=== PATIENT | male | born 1970 | race Caucasian/White ===

== ENCOUNTER 2021-09-17 07:15 | Outpatient (REF) | payer OTHER, SELFPAY ==
[2021-09-17 08:17] LABS: Estimated Average Glucose 117 mg/dL; Hemoglobin A1C 151.0293 umol/L; Hemoglobin A1c % 5.7 %
[2021-09-17 08:26] LABS: Alanine Aminotransferase 25 U/L (0-40); Anion Gap 11 (12-20); Aspartate Amino Transferase 25 U/L (5-37); Blood Urea Nitrogen 17 mg/dL (9-16); Calcium 10.1 mg/dL (8.4-10.2); Carbon Dioxide 29 mmol/L (22-29); Chloride 103 mmol/L (96-108); Cholesterol 125 mg/dL; Estimated Glomerular Filt Rate > 60; Glucose Fasting 120 mg/dL (60-99); HDL Cholesterol 45 mg/dL; LDL Cholesterol Calculated 70 mg/dl; Potassium 4.8 mmol/L (3.3-5.1); Sodium 138 mmol/L (135-145); Triglycerides 51 mg/dL
[2021-09-17 08:47] LABS: Free T4 (Free Thyroxine) 0.98 ng/dL (0.71-1.85); Thyroid Stimulating Hormone 8.84 uIU/mL (0.32-4.0)
== END 2021-09-17 07:16 | disposition home or self-care (01) ==
LOC: HO.LAB 07:15
PROVIDERS: PCP Internal Medicine; Visit Provider Internal Medicine
DX: Z00.01 Encounter for general adult medical examination with abnormal findings (principal); E03.9 Hypothyroidism, unspecified; E78.5 Hyperlipidemia, unspecified; I10 Essential (primary) hypertension; R73.01 Impaired fasting glucose
CPT/HCPCS: 36415; 80048; 80061; 83036; 84439; 84443; 84450; 84460

== ENCOUNTER → 2021-12-01 10:23 | Outpatient (BNVA) | payer OTHER, SELFPAY | PROVIDERS: PCP Internal Medicine; Visit Provider Physician Assistant Medical | DX: S30.0XXA Contusion of lower back and pelvis, initial encounter (principal); W00.0XXA Fall on same level due to ice and snow, initial encounter | CPT/HCPCS: 72100; 99203 ==

== ENCOUNTER 2022-01-09 06:30 | Outpatient (REF) | payer OTHER, SELFPAY ==
[2022-01-09 07:55] LABS: Alanine Aminotransferase 28 U/L (0-40); Anion Gap 13 (12-20); Aspartate Amino Transferase 22 U/L (5-37); Blood Urea Nitrogen 17 mg/dL (9-16); Calcium 9.6 mg/dL (8.4-10.2); Carbon Dioxide 28 mmol/L (22-29); Chloride 105 mmol/L (96-108); Cholesterol 134 mg/dL; Estimated Glomerular Filt Rate > 60; Glucose Fasting 106 mg/dL (60-99); HDL Cholesterol 50 mg/dL; LDL Cholesterol Calculated 73 mg/dl; Potassium 4.6 mmol/L (3.3-5.1); Sodium 141 mmol/L (135-145); Triglycerides 56 mg/dL
[2022-01-09 08:16] LABS: Free T4 (Free Thyroxine) 0.94 ng/dL (0.71-1.85); Thyroid Stimulating Hormone 10.58 uIU/mL (0.32-4.0)
== END 2022-01-09 06:31 | disposition home or self-care (01) ==
LOC: HO.LAB 06:30
PROVIDERS: PCP Internal Medicine; Visit Provider Internal Medicine
DX: E03.9 Hypothyroidism, unspecified (principal); E78.5 Hyperlipidemia, unspecified; R73.01 Impaired fasting glucose
CPT/HCPCS: 36415; 80048; 80061; 84439; 84443; 84450; 84460

== ENCOUNTER 2023-03-10 07:24 | Outpatient (REF) | payer OTHER, SELFPAY ==
[2023-03-10 08:10] LABS: Estimated Average Glucose 117 mg/dL; Hemoglobin A1c % 5.7 %
[2023-03-10 08:36] LABS: Alanine Aminotransferase 22 U/L (0-40); Albumin Level 4.4 g/dL (3.5-5.0); Alkaline Phosphatase 100 U/L (39-117); Anion Gap 12 (12-20); Aspartate Amino Transferase 24 U/L (5-37); Blood Urea Nitrogen 18 mg/dL (9-16); Calcium 9.4 mg/dL (8.4-10.2); Carbon Dioxide 25 mmol/L (22-29); Chloride 107 mmol/L (96-108); Cholesterol 126 mg/dL; Estimated Glomerular Filt Rate > 60; Glucose Fasting 108 mg/dL (60-99); HDL Cholesterol 42 mg/dL; LDL Cholesterol Calculated 69 mg/dl; Potassium 4.8 mmol/L (3.3-5.1); Sodium 139 mmol/L (135-145); Total Protein 6.9 g/dL (6.5-8.0); Triglycerides 79 mg/dL
[2023-03-10 08:50] LABS: Free T4 (Free Thyroxine) 1.36 ng/dL (0.71-1.85); PSA,Total (Free>4and<10) 1.15 ng/mL (0.00-4.00); Thyroid Stimulating Hormone 4.36 uIU/mL (0.32-4.0)
== END 2023-03-10 07:25 | disposition home or self-care (01) ==
LOC: HO.LAB 07:24
PROVIDERS: PCP Internal Medicine; Visit Provider Internal Medicine
DX: Z12.5 Encounter for screening for malignant neoplasm of prostate (principal); E03.9 Hypothyroidism, unspecified; F51.01 Primary insomnia; R73.01 Impaired fasting glucose; R35.1 Nocturia; E78.5 Hyperlipidemia, unspecified
CPT/HCPCS: 36415; 80053; 80061; 83036; 84153; 84439; 84443

== ENCOUNTER 2023-05-24 14:54 | Outpatient (AMB) | payer OTHER, SELFPAY ==
--- NOTE | 2023-05-24 15:08 | MHC.PC.OV ---
Vital Signs 05/24/23 15:13 Height 5 ft 10 in Weight 250 lb BMI 35.9 BP 90/62 Blood Pressure Location Rt brachial Position Sitting Pulse 96 Pulse Source Pulse Oximeter Pulse Oximetry (%) 98 Oxygen Delivery Method Room Air Intake Visit Reasons: 3 month follow up high bp Intake Note: Pt is here today for her 3 mo. f/u elevated b/p Allergies No Known Allergies Allergy (Verified 01/20/24 23:33) Medication List - Last Reconciled 01/20/24 by Yokasta Rooney MD aspirin 81 mg PO DAILY atorvastatin 80 mg PO DAILY levothyroxine 175 mcg PO DAILY lisinopril 5 mg PO DAILY oxybutynin chloride ER 10 mg PO DAILY 30 days zolpidem 5 mg PO BEDTIME PRN Tobacco use date assessed: 05/24/23 Dental Screening Dental Screen Date: 05/24/23 Did you have a dental visit in the last 12 months?: No Was dental information given to patient?: Patient has dentist HPI 3 month follow up high bp HPI Details 53-year-old male with hypertension, hypothyroidism, prediabetes and hyperlipidemia, here today for his follow-up. Currently taking lisinopril 5 mg 1 daily has been tolerating medication well with no adverse effects reported. He works as a road oiling truck driver, has tried incorporating some form of exercise in his day-to-day routine, and has been trying to avoid eating a lot of processed and fast foods . Blood pressure today is within normal limits, denies any lightheadedness, headache, chest pain or shortness of breath. Recent fasting labs showed elevated fasting glucose but hemoglobin A1c at 5.7%, fasting lipids, total PSA are within normal limits, TSH slightly elevated but free T4 within normal limits as well PFSH Medical History Chronic left shoulder pain Essential hypertension Fall (on)(from) sidewalk curb, initial encounter Impaired fasting glucose Nocturia Primary insomnia Muscle spasticity History of tongue cancer Dyslipidemia Acquired hypothyroidism Rhinitis, allergic Surgical History Hx of colonoscopy History of surgery History of umbilical hernia Family History Father Unknown family medical history Mother COPD (chronic obstructive pulmonary disease) Son Juvenile onset diabetes mellitus with hyperosmolar coma Social History Housing: House Alcohol intake: current Alcohol intake frequency: a few times a month Patient Tobacco Use Status: Former Tobacco user Years Smoked: 2 yrs e-Cigarette/Vaping Use: Never Used service: No Current occupational status: employed Cognitive needs: No Hearing needs: No Vision needs: Yes Questionnaire Thrive Questionnaire Date Thrive assessed: 02/22/23 AUDIT C Alcohol Use Questionnaire (AUDIT-C) 1. How often do you have a drink containing alcohol?: Monthly or less 2. How many drinks containing alcohol do you have on a typical day when you are drinking?: 1 or 2 3. How often do you have six or more drinks on one occasion?: Never Total Score: 1 REID-7 AMB Questionnaire REID-7 Date REID - 7 assessed: 02/22/23 Source: Developed by Drs. Salazar Martinez, Audrey Dorado, Trace Collins and colleagues, with an educational deisi from [employer]. Review of Systems Const Denies fatigue, Denies headache(s) and Denies malaise Eyes Reports blurry vision (sees Dr Louis for his eye exam) ENT Denies dizziness and Denies headache(s) Card Denies chest pain, Denies rapid heart rate, Denies irregular heart rhythm and Denies dyspnea Resp Denies chest congestion, Denies cough and Denies dyspnea GI Denies abdominal pain, Denies bloating, Denies hematochezia, Denies change in bowel habits, Denies heartburn and Denies nausea Denies difficulty urinating, Denies genital lesions, Denies dysuria, Reports nocturia, Denies penile discharge, Denies urinary incontinence and Denies urinary urgency Skin/Breast Denies lesions and Denies rash Neuro Denies dizziness and Denies headache(s) Psych Reports no additional complaints Endo Denies fatigue, Denies polyphagia and Denies polydipsia Grabiel/Lymph Reports no additional complaints Aller/Immun Reports seasonal rhinorrhea Physical exam (Primary Care) Vital Signs: Last Vital Signs Pulse 96 05/24/23 15:13 BP 90/62 05/24/23 15:13 Pulse Ox 98 05/24/23 15:13 Oxygen Delivery Method Room Air 05/24/23 15:13 BMI result Body Mass Index 35.9 BMI Assessment/Plan discussion: High BMI High, discussed plan: lifestyle, weight reduction, dietary, physical activity and alcohol moderation Tobacco/Smoking Status: Tobacco use Status Tobacco use date assessed 05/24/23 05/24/23 15:14 Patient Tobacco Use Status Former Tobacco user 05/24/23 15:09 e-Cigarette/Vaping Use Never Used 05/24/23 15:09 Thrive Assessment: Date of Thrive Assessment Date Thrive assessed 02/22/23 05/24/23 15:09 Const General: cooperative and no acute distress Nutritional Appearance: obese Orientation/consciousness: patient oriented x3 HENFL General nose exam: Normal external nose present and No nasal discharge present Face and sinus: Yes face symmetric Mouth: Normal oral and palatal mucosa present and moist mucous membranes Eyes General: appearance normal, both eyes and all related structures Neck Other: Supple, no lymphadenopathy, thyroid gland nonpalpable Resp Auscultation: clear to auscultation bilaterally Cardio Other: S1-S2 present regular rate and rhythm GI Palpation (GI): Soft to palpation, nontender, no guarding and no masses Auscultation: normal bowel sounds Neuro General: patient oriented x3, gait normal, moves all extremities, Normal light touch and pain sensation, CN's II-XI intact bilaterally and normal sensation to monofilament Extrem General: Yes full ROM, Yes no joint enlargement, Yes no pedal edema, Yes no calf tenderness and Yes normal gait Results Reviewed Results Reviewed: SPEC : [id number] ROSA: 03/10/23 STATUS: COMP REQ : [id number] RECD: 03/10/[address]: Yokasta Rooney MD COMP: 03/10/2350 ENTERED: 03/10/[address] [facility] [address]: ORDERED: CMP Fast, Lipid Panel, PSA W/ REFLEX, Free T4, TSH Test Result Flag Reference Sodium 139 135-145 mmol/L Potassium 4.8 3.3-5.1 mmol/L Slight Hemolysis CL 107 96-108 mmol/L CO2 25 22-29 mmol/L Gap 12 12-20 BUN 18 H 9-16 mg/dL Creat 1.06 0.5-1.4 mg/dL EGFR > 60 NOTE: For -[place]incent[place] individuals, multiply the result by 1.210. Chronic Kidney Disease: Estimated GFR < 60 mL/min/1.73m2 Severe Kidney Disease: Estimated GFR < 15 mL/min/1.73m2 FBS 108 H 60-99 mg/dL A fasting glucose from 100-125 mg/dl is considered impaired (pre-diabetes). CA 9.4 8.4-10.2 mg/dL Total Bili 1.0 0.0-1.0 mg/dL AST (GOT) 24 5-37 U/L Slight Hemolysis ALT (GPT) 22 0-40 U/L Protein, Total 6.9 6.5-8.0 g/dL Alb 4.4 3.5-5.0 g/dL Triglyceride 79 mg/dL Desirable Triglyceride: less than 150 mg/dL Borderline High Triglyceride 150-199 mg/dL High Triglyceride: 200-499 mg/dL Very High Triglyceride: greater than or equal to 5OO mg/dL Chol 126 mg/dL Desirable Cholesterol: less than 200 mg/dL Borderline High Cholesterol: 200-239 mg/dL High Cholesterol: greater than 239 mg/dL LDL Calculated 69 mg/dl Desirable LDL: less than 100 mg/dL Near Optimal/Above Optimal LDL: 110-129 mg/dL Borderline High LDL: 130-159 mg/dL High LDL: 160-189 mg/dL Very High LDL: greater than or equal to 190 mg/dL HDL 42 mg/dL Desirable HDL: greater than 40 mg/dL Note: This HDL assay may give artificially low results in patients with liver disease. Alk Phos 100 39-117 U/L PSA W/ REFLEX 1.15 0.00-4.00 ng/mL A Free PSA was not performed: The percentage of Free PSA can be used to enhance the differentiation of prostate cancer from benign prostatic disease in subjects whose PSA levels are between 4.0 and 10.0 ng/mL. For subjects whose PSA levels are below 4.0 or above 10.0 ng/mL, the risk of prostate cancer is determined on the basis of the PSA alone. Therefore the % Free PSA is recommended only for those subjects whose PSA levels are between 4.0 and 10.0 ng/mL. PSA methodology: [employer] i Chemiluminescent Microparticle Immunoassay (CMIA) Free T4 1.36 0.71-1.85 ng/dL TSH 3rd Gen. 4.36 H 0.32-4.0 uIU/mL Note: A sustained TSH level above 2.5 uIU/mL may warrant further investigation. TSH 3rd Generation ([employer]) Laboratory Tests 03/10/23 07:41 Estimat Average Glucose 117 Hemoglobin A1c % 5.7 Assessment and Plan Assessment & Plan (1) Essential hypertension: Code(s): I10 - Essential (primary) hypertension Plan: Blood pressure at goal of less than 130/80. Continue lisinopril 5 mg daily. Reinforced importance of following a low sodium diet, getting regular exercise, and lowering stress levels. (2) Impaired fasting glucose: Code(s): R73.01 - Impaired fasting glucose Plan: Your fasting blood sugar was elevated above 100 mg/dL but hemoglobin A1c is within normal limits. Impaired glucose metabolism makes at risk for developing diabetes mellitus type 2, as well as heart attack and stroke later on. Lifestyle changes at just weight loss, healthy eating habits, and regular exercise are important, and can prevent the progression to diabetes (3) Dyslipidemia: Code(s): E78.5 - Hyperlipidemia, unspecified Plan: Reviewed recent fasting lipid profile with patient with levels within normal limits . Continue with atorvastatin 80 mg daily , in addition to adherence to low-cholesterol diet and regular exercise, at least 30 minutes 3 to 4 times a week. Advised patient to make healthy food choices, eat more fruits, vegetables, whole grains, wild caught fish and low-fat dairy. Limit amount of meat and fried or fatty food products, as well as processed foods and fast foods. Follow-up scheduled with repeat fasting lipid panel in 4 months. (4) Acquired hypothyroidism: Code(s): E03.9 - Hypothyroidism, unspecified Plan: TSH is slightly elevated but free T4 within normal . Patient states he is feeling well on current dose of levothyroxine at 175 mcg daily, will continue with current dose Orders: Orders Alanine Aminotransferase 08/27/23 I10 - Essential (primary) hypertension, R73.01 - Impaired fasting glucose, E78.5 - Hyperlipidemia, unspecified, E03.9 - Hypothyroidism, unspecified Aspartate Amino Transferase 08/27/23 I10 - Essential (primary) hypertension, R73.01 - Impaired fasting glucose, E78.5 - Hyperlipidemia, unspecified, E03.9 - Hypothyroidism, unspecified Lipid Panel 08/27/23 I10 - Essential (primary) hypertension, R73.01 - Impaired fasting glucose, E78.5 - Hyperlipidemia, unspecified, E03.9 - Hypothyroidism, unspecified Thyroid Stimulating Hormone 08/27/23 I10 - Essential (primary) hypertension, R73.01 - Impaired fasting glucose, E78.5 - Hyperlipidemia, unspecified, E03.9 - Hypothyroidism, unspecified Free T4 (Free Thyroxine) 08/27/23 E03.9 - Hypothyroidism, unspecified, I10 - Essential (primary) hypertension, R73.01 - Impaired fasting glucose, E78.5 - Hyperlipidemia, unspecified Basic Metabolic Panel Fasting 08/27/23 I10 - Essential (primary) hypertension, R73.01 - Impaired fasting glucose, E78.5 - Hyperlipidemia, unspecified, E03.9 - Hypothyroidism, unspecified Coding Level of Care Code Est Pt Level 3 (75461) Diagnoses Essential hypertension I10 Impaired fasting glucose R73.01 Dyslipidemia E78.5 Acquired hypothyroidism E03.9
[2023-05-24 15:13] VITALS: BP 90/62; PULSE 96; O2SAT 98; BMI 35.9
== END 2023-05-24 15:42 | disposition home or self-care (01) ==
PROVIDERS: Visit Provider Internal Medicine
DX: I10 Essential (primary) hypertension (principal); R73.01 Impaired fasting glucose; E78.5 Hyperlipidemia, unspecified; E03.9 Hypothyroidism, unspecified
CPT/HCPCS: 99499

== ENCOUNTER 2023-09-08 07:20 | Outpatient (REF) | payer OTHER, SELFPAY ==
[2023-09-08 09:55] LABS: Alanine Aminotransferase 24 U/L (0-40); Anion Gap 13 (12-20); Aspartate Amino Transferase 23 U/L (5-37); Blood Urea Nitrogen 13 mg/dL (9-16); Calcium 9.8 mg/dL (8.4-10.2); Carbon Dioxide 28 mmol/L (22-29); Chloride 104 mmol/L (96-108); Cholesterol 123 mg/dL (<200); Estimated Glomerular Filt Rate > 60; Glucose Fasting 106 mg/dL (60-99); HDL Cholesterol 44 mg/dL (>40); LDL Cholesterol Calculated 65 mg/dL (<100); Potassium 4.2 mmol/L (3.3-5.1); Sodium 141 mmol/L (135-145); Triglycerides 71 mg/dL (<150)
== END 2023-09-08 07:21 | disposition home or self-care (01) ==
LOC: HO.LAB 07:20
PROVIDERS: PCP Internal Medicine; Visit Provider Internal Medicine
DX: I10 Essential (primary) hypertension (principal); E03.9 Hypothyroidism, unspecified; R73.01 Impaired fasting glucose; E78.5 Hyperlipidemia, unspecified
CPT/HCPCS: 36415; 80048; 80061; 84439; 84443; 84450; 84460

== ENCOUNTER 2023-09-13 14:15 | Outpatient (AMB) | payer OTHER, SELFPAY ==
[2023-09-13 14:42] VITALS: BP 98/64; PULSE 93; O2SAT 97; BMI 35.2
--- NOTE | 2023-09-13 14:42 | MHC.PC.OV ---
Vital Signs 09/13/23 14:42 Height 5 ft 10 in Weight 245 lb 2 oz BMI 35.2 BP 98/64 Blood Pressure Location Rt brachial Position Sitting Pulse 93 Pulse Source Pulse Oximeter Pulse Oximetry (%) 97 Oxygen Delivery Method Room Air Intake Visit Reasons: 4 Month F/Up Intake Note: pt is here for a 4 month follow for lab results pt would like to discuss his left shoulder/neck pain that he still having and that is getting worse Allergies No Known Allergies Allergy (Verified 09/17/23 01:00) Medication List - Last Reconciled 09/17/23 by Yokasta Rooney MD aspirin 81 mg PO DAILY atorvastatin 80 mg PO DAILY levothyroxine 175 mcg PO DAILY lisinopril 5 mg PO DAILY zolpidem 5 mg PO BEDTIME PRN Tobacco use date assessed: 09/13/23 Dental Screening Dental Screen Date: 09/13/23 Did you have a dental visit in the last 12 months?: No Did you have a dental problem in the last 6 months where you did not have access to dental care?: No Was dental information given to patient?: No HPI 4 Month F/Up HPI Details 53-year-old male with hypertension, prediabetes, primary insomnia, dyslipidemia and acquired hypothyroidism, here today for his follow-up. He has been compliant with taking his medications, and tries to follow recommended diet. Had recent fasting labs done which showed results within normal limits, except for fasting glucose at 106 mg/dL. Still having you pain and stiffness in his left posterior neck going down left shoulder, with difficult with doing overhead movements with left arm. [facility] Medical History (Updated 09/13/23 @ 15:21 by Yokasta Rooney MD) Chronic left shoulder pain Essential hypertension Fall (on)(from) sidewalk curb, initial encounter Impaired fasting glucose Nocturia Primary insomnia Muscle spasticity History of tongue cancer Dyslipidemia Acquired hypothyroidism Rhinitis, allergic Surgical History Hx of colonoscopy History of surgery History of umbilical hernia Family History Father Unknown family medical history Mother COPD (chronic obstructive pulmonary disease) Son Juvenile onset diabetes mellitus with hyperosmolar coma Social History Housing: House Alcohol intake: current Alcohol intake frequency: a few times a month Patient Tobacco Use Status: Former Tobacco user Years Smoked: 2 yrs e-Cigarette/Vaping Use: Never Used service: No Current occupational status: employed Cognitive needs: No Hearing needs: No Vision needs: Yes Questionnaire PHQ-9 Over the last 2 weeks, how often have you been bothered by any of the following problems? Depression Screening Interpretation: Negative Depression Screening Done: Yes Source: Developed by Drs. Salazar Martinez, Trace Calvo and colleagues, with an educational deisi from [employer]. Thrive Questionnaire Date Thrive assessed: 02/22/23 REID-7 AMB Questionnaire REID-7 Date REID - 7 assessed: 02/22/23 Source: Developed by Drs. Salazar Martinez, Audrey Dorado, Trace Collins and colleagues, with an educational deisi from [employer]. Review of Systems Const Denies fatigue, Denies fever(s), Denies headache(s) and Denies malaise Eyes Reports blurry vision (sees Dr Louis for his eye exam) ENT Denies dizziness, Denies ear discharge, Denies headache(s), Denies mouth lesions, Denies mouth pain, Reports nasal congestion and Denies sinus pressure Card Denies chest pain, Denies rapid heart rate, Denies irregular heart rhythm and Denies dyspnea Resp Denies chest congestion, Denies cough and Denies dyspnea GI Denies abdominal pain, Denies bloating, Denies hematochezia, Denies change in bowel habits, Denies heartburn and Denies nausea Denies difficulty urinating, Denies genital lesions, Denies dysuria, Reports nocturia, Denies penile discharge, Denies urinary incontinence and Denies urinary urgency Musc Reports stiffness (left side of neck ) Skin/Breast Denies lesions and Denies rash Neuro Denies dizziness and Denies headache(s) Psych Reports no additional complaints Endo Denies fatigue, Denies polyphagia and Denies polydipsia Grabiel/Lymph Reports no additional complaints Aller/Immun Reports seasonal rhinorrhea Physical exam (Primary Care) Vital Signs: Last Vital Signs Pulse 93 09/13/23 14:42 BP 98/64 09/13/23 14:42 Pulse Ox 97 09/13/23 14:42 Oxygen Delivery Method Room Air 10/19/23 14:42 BMI result Body Mass Index 35.2 BMI Assessment/Plan discussion: High BMI High, discussed plan: lifestyle, weight reduction, dietary, physical activity and alcohol moderation Tobacco/Smoking Status: Tobacco use Status Tobacco use date assessed 09/13/23 09/13/23 14:46 Patient Tobacco Use Status Former Tobacco user 09/13/23 14:46 e-Cigarette/Vaping Use Never Used 09/13/23 14:46 Depression Screening Interpretation: Negative Thrive Assessment: Date of Thrive Assessment Date Thrive assessed 02/22/23 09/13/23 14:46 Const General: cooperative and no acute distress Nutritional Appearance: obese Orientation/consciousness: patient oriented x3 Limitations: no limitations HENMT Ears: hearing grossly normal bilaterally, TM's normal bilaterally and EAC's normal General nose exam: Normal external nose present and No nasal discharge present Face and sinus: Yes face symmetric Mouth: Normal oral and palatal mucosa present and moist mucous membranes Eyes General: appearance normal, both eyes and all related structures Neck Other: Supple, no lymphadenopathy, thyroid gland nonpalpable Resp Auscultation: clear to auscultation bilaterally Cardio Other: S1-S2 present regular rate and rhythm GI Palpation (GI): Soft to palpation, nontender, no guarding and no masses Auscultation: normal bowel sounds General: Yes no CVA tenderness Male General Exam: Yes normal external exam Back/Spine/Pelvis Other: Slight tenderness on palpation over live left trapezius going to posterior aspect of left shoulder joint, full range of motion of left shoulder noted Back: no CVA tenderness Skin General skin exam: no rashes or lesions noted Neuro General: patient oriented x3, gait normal, moves all extremities, Normal light touch and pain sensation, CN's II-XI intact bilaterally and normal sensation to monofilament Extrem General: Yes full ROM, Yes no joint enlargement, Yes no pedal edema, Yes no calf tenderness and Yes normal gait Psych Appearance: grossly normal Mental Status: mental status grossly normal Speech and movement: Normal speech and movement present Affect: normal affect Attitude: cooperative Results Reviewed Results Reviewed: ENTERED: 09/08/23-4393 RADHA WILD: ORDERED: Met Prof Fast, AST, ALT, Lipid Panel, Free T4, TSH Test Result Flag Reference Site Sodium 141 135-145 mmol/L Potassium 4.2 3.3-5.1 mmol/L CL 104 96-108 mmol/L CO2 28 22-29 mmol/L Gap 13 12-20 BUN 13 9-16 mg/dL Creat 0.97 0.5-1.4 mg/dL EGFR > 60 NOTE: For -[place] individuals, multiply the result by 1.210. Chronic Kidney Disease: Estimated GFR < 60 mL/min/1.73m2 Severe Kidney Disease: Estimated GFR < 15 mL/min/1.73m2 FBS 106 H 60-99 mg/dL A fasting glucose from 100-125 mg/dl is considered impaired (pre-diabetes). CA 9.8 8.4-10.2 mg/dL AST (GOT) 23 5-37 U/L ALT (GPT) 24 0-40 U/L Triglyceride 71 <150 mg/dL Desirable Triglyceride: less than 150 mg/dL Borderline High Triglyceride 150-199 mg/dL High Triglyceride: 200-499 mg/dL Very High Triglyceride: greater than or equal to 5OO mg/dL Cholesterol 123 <200 mg/dL Desirable Cholesterol: less than 200 mg/dL Borderline High Cholesterol: 200-239 mg/dL High Cholesterol: greater than 239 mg/dL LDL Calculated 65 <100 mg/dL Desirable LDL: less than 100 mg/dL Near Optimal/Above Optimal LDL: 110-129 mg/dL Borderline High LDL: 130-159 mg/dL High LDL: 160-189 mg/dL Very High LDL: greater than or equal to 190 mg/dL HDL 44 >40 mg/dL Desirable HDL: greater than 40 mg/dL Note: This HDL assay may give artificially low results in patients with liver disease. Free T4 1.20 0.71-1.85 ng/dL TSH 3rd Gen. 2.20 0.32-4.0 uIU/mL TSH 3rd Generation ([facility]) Assessment and Plan Assessment & Plan (1) Chronic left shoulder pain: Code(s): M25.512 - Pain in left shoulder; G89.29 - Other chronic pain Plan: X-ray of left shoulder joint obtained, and referred for physical therapy. Return to the clinic if no improvement of symptoms noted after PT (2) Nocturia: Comment: ff'd at [facility] Code(s): R35.1 - Nocturia Plan: Needs a referral to see another urologist, as previous 1 retired. Total PSA level ordered (3) Impaired fasting glucose: Code(s): R73.01 - Impaired fasting glucose Plan: Your fasting blood sugars was elevated above 100 mg/dL. Impaired glucose metabolism O2 at risk for developing diabetes mellitus type 2, as well as heart attack and stroke later on. Lifestyle changes at just weight loss, healthy eating habits, and regular exercise are important, and can prevent the progression to diabetes (4) Essential hypertension: Code(s): I10 - Essential (primary) hypertension Plan: Blood pressure at goal of less than 130/80. Continue with current medication. Reinforced importance of following a low sodium diet, getting regular exercise, and lowering stress levels. (5) Dyslipidemia: Code(s): E78.5 - Hyperlipidemia, unspecified Plan: Reviewed recent fasting lipid profile with patient with levels within normal limit . Continue with atorvastatin 80 mg daily , in addition to adherence to low-cholesterol diet and regular exercise, at least 30 minutes 3 to 4 times a week. Advised patient to make healthy food choices, eat more fruits, vegetables, whole grains, wild caught fish and low-fat dairy. Limit amount of meat and fried or fatty food products, as well as processed foods and fast foods. Follow-up scheduled with repeat fasting lipid panel in 6 months. (6) Acquired hypothyroidism: Code(s): E03.9 - Hypothyroidism, unspecified Plan: Thyroid levels are within normal limits, continued on current dose of levothyroxine at 175 mcg daily in a.m. (7) Primary insomnia: Code(s): F51.01 - Primary insomnia Plan: Continued on zolpidem 5 mg 1 tablet at bedtime as needed for difficulty sleeping Orders: Orders Basic Metabolic Panel Fasting 02/25/24 E03.9 - Hypothyroidism, unspecified, E78.5 - Hyperlipidemia, unspecified, I10 - Essential (primary) hypertension, R35.1 - Nocturia, R73.01 - Impaired fasting glucose XR shoulder LT min 2V 09/13/23 G89.29 - Other chronic pain, M25.512 - Pain in left shoulder PT Evaluation and Treatment 09/13/23 G89.29 - Other chronic pain, M25.512 - Pain in left shoulder Lipid Panel 02/25/24 E03.9 - Hypothyroidism, unspecified, E78.5 - Hyperlipidemia, unspecified, I10 - Essential (primary) hypertension, R35.1 - Nocturia, R73.01 - Impaired fasting glucose Alanine Aminotransferase 02/25/24 E03.9 - Hypothyroidism, unspecified, E78.5 - Hyperlipidemia, unspecified, I10 - Essential (primary) hypertension, R35.1 - Nocturia, R73.01 - Impaired fasting glucose Aspartate Amino Transferase 02/25/24 E03.9 - Hypothyroidism, unspecified, E78.5 - Hyperlipidemia, unspecified, I10 - Essential (primary) hypertension, R35.1 - Nocturia, R73.01 - Impaired fasting glucose PSA,Total (Free>4and<10) 02/25/24 E03.9 - Hypothyroidism, unspecified, E78.5 - Hyperlipidemia, unspecified, I10 - Essential (primary) hypertension, R35.1 - Nocturia, R73.01 - Impaired fasting glucose Vitamin D 25-OH Total 02/25/24 E03.9 - Hypothyroidism, unspecified, E78.5 - Hyperlipidemia, unspecified, I10 - Essential (primary) hypertension, R35.1 - Nocturia, R73.01 - Impaired fasting glucose Thyroid Stimulating Hormone 02/25/24 E03.9 - Hypothyroidism, unspecified, E78.5 - Hyperlipidemia, unspecified, I10 - Essential (primary) hypertension, R35.1 - Nocturia, R73.01 - Impaired fasting glucose Free T4 (Free Thyroxine) 02/25/24 E03.9 - Hypothyroidism, unspecified, E78.5 - Hyperlipidemia, unspecified, I10 - Essential (primary) hypertension, R35.1 - Nocturia, R73.01 - Impaired fasting glucose Hemoglobin A1c 02/25/24 E03.9 - Hypothyroidism, unspecified, E78.5 - Hyperlipidemia, unspecified, I10 - Essential (primary) hypertension, R35.1 - Nocturia, R73.01 - Impaired fasting glucose Referrals Urology Referral R35.1 - Nocturia Coding Level of Care Code Est Pt Level 4 (04983) Diagnoses Chronic left shoulder pain M25.512; G89.29 Nocturia R35.1 Impaired fasting glucose R73.01 Essential hypertension I10 Dyslipidemia E78.5 Acquired hypothyroidism E03.9 Primary insomnia F51.01
== END 2023-09-13 15:45 | disposition home or self-care (01) ==
PROVIDERS: PCP Internal Medicine; Visit Provider Internal Medicine
DX: M25.512 Pain in left shoulder (principal); G89.29 Other chronic pain; R35.1 Nocturia; R73.01 Impaired fasting glucose; I10 Essential (primary) hypertension; E78.5 Hyperlipidemia, unspecified; E03.9 Hypothyroidism, unspecified; F51.01 Primary insomnia
CPT/HCPCS: 99214

== ENCOUNTER 2023-09-13 15:30 | Outpatient (REF) | payer OTHER, SELFPAY ==
--- NOTE | ~2023-09-13 | XR_ITS ---
EXAMINATION: XR SHOULDER, LEFT CLINICAL INFORMATION: Left shoulder pain COMPARISON: None available. TECHNIQUE: AP external rotation, Grashey, scapular Y, and axillary views of the left shoulder. FINDINGS: Acromioclavicular joint space narrowing. Glenohumeral joint is maintained. No fracture or dislocation. Mild bony prominence lateral proximal humerus. Visualized ribs and lung are unremarkable. XR/XR shoulder LT min 2V IMPRESSION: No acute bony pathology. Degenerative change left AC joint.
== END 2023-09-13 15:31 | disposition home or self-care (01) ==
LOC: HO.HMGCX 15:30
PROVIDERS: PCP Internal Medicine; Visit Provider Internal Medicine
DX: M25.512 Pain in left shoulder (principal); G89.29 Other chronic pain
CPT/HCPCS: 73030

== ENCOUNTER 2023-11-01 13:40 | Outpatient (REF) | payer OTHER, SELFPAY ==
[2023-11-01 16:36] LABS: Urine Cytology See Pathology rpt
== END 2023-11-01 13:41 | disposition home or self-care (01) ==
LOC: HO.LNP 13:40
PROVIDERS: PCP Internal Medicine; Visit Provider Nurse Practitioner Family
DX: R35.1 Nocturia (principal)
CPT/HCPCS: 51798; 81003; 88112

== ENCOUNTER 2023-11-01 13:40 | Outpatient (AMB) | payer OTHER, SELFPAY ==
--- NOTE | 2023-11-01 14:14 | MHC.OFFVIS ---
Intake Intake Visit Reasons: Nocturia Intake Note: New Patient presents for initial visit for nocturia Urology Medications: none Blood Thinner: aspirin PVR:12ml's [employer]visor [employer] Required: No Accompanied by: Self / Same As Patient Allergies No Known Allergies Allergy (Verified 11/01/23 14:56) Medication List - Last Reconciled 11/01/23 by NATHANAEL Matson aspirin 81 mg PO DAILY atorvastatin 80 mg PO DAILY levothyroxine 175 mcg PO DAILY lisinopril 5 mg PO DAILY zolpidem 5 mg PO BEDTIME PRN HPI HPI Comments History of Present Illness Details Jose J Mazariegos is a very pleasant 53-year-old male patient of . He has a past medical history of chronic left shoulder pain, hypertension, nocturia, insomnia, muscle spasticity, history of tongue cancer in 2015 status post chemo and radiation treatment, dyslipidemia, hypothyroidism, and allergic rhinitis. He presents to the office today as a new patient for nocturia. In discussion with the patient today he reports previously following up with [facility] Dr. Lyon for ongoing nocturia. He reports symptoms to have been present for over 4 years however does feel nocturia is worsening. He reports episodes of nocturia up to 6 times per night. He otherwise denies urinary urgency, urinary frequency, incontinence, hematuria, dysuria, foul smelling urine, changes to urinary stream, flank pain, fever, and or chills. He discusses having trialed Flomax 0.4 mg daily as well as 0.8 mg daily with no improvement in nocturia. When asked he reports a previous workup for sleep apnea approximately 6-7 years ago which was essentially negative. He discusses given his previous history of tongue cancer he does tend to experience dry throat and mouth in does drink fluids during his episodes of nocturia. Discussed obtaining PSA for further assessment evaluation as well as retroperitoneal ultrasound. Discussed possible near future in office urodynamics and or in office cystoscopy for further assessment evaluation. In office urinalysis results reviewed with the patient today microscopic hematuria noted. Discussed at length potential causes of microscopic hematuria. PVR 12 mLs. He otherwise offers no issues or concerns at this time. [facility] Medical History Chronic left shoulder pain Essential hypertension Fall (on)(from) sidewalk curb, initial encounter Impaired fasting glucose Nocturia Primary insomnia Muscle spasticity History of tongue cancer Dyslipidemia Acquired hypothyroidism Rhinitis, allergic Surgical History Hx of colonoscopy History of surgery History of umbilical hernia Family History Father Unknown family medical history Mother COPD (chronic obstructive pulmonary disease) Son Juvenile onset diabetes mellitus with hyperosmolar coma Social History Housing: House Alcohol intake: current Alcohol intake frequency: a few times a month Patient Tobacco Use Status: Former Tobacco user Years Smoked: 2 yrs e-Cigarette/Vaping Use: Never Used service: No Current occupational status: employed Cognitive needs: No Hearing needs: No Vision needs: Yes Review of Systems Const Reports as per HPI Eyes Reports no additional complaints ENT Reports as per HPI Card Reports as per HPI Resp Reports no additional complaints Reports as per HPI Musc Reports as per HPI Neuro Reports no additional complaints Psych Reports no additional complaints Endo Reports as per HPI Physical Exam Const General: cooperative, healthy appearing, comfortable, no acute distress, well developed, alert and awake Orientation/consciousness: patient oriented x3 HEENT Head: Yes normal to inspection, Yes normocephalic and Yes atraumatic Ears: hearing grossly normal bilaterally Eyes General: appearance normal, both eyes and all related structures Neck Neck: Yes normal visual inspection and Yes trachea midline Chest Chest palpation & inspection: normal inspection of the chest Resp Effort & Inspection: normal respiratory effort and able to speak in complete sentences Cardio Rate: regular rate GI Inspection: Yes normal to inspection General: Yes no CVA tenderness Back/Spine/Pelvis Back: no CVA tenderness Skin General skin exam: no rashes or lesions noted Neuro General: patient oriented x3 Extrem General: Yes normal to inspection Psych Appearance: grossly normal and well kempt Mental Status: mental status grossly normal Speech and movement: Normal speech and movement present and Clear speech present Affect: normal affect Attitude: cooperative Thought process: Normal thought process present Thought content: Normal thought content present Insight: Fair insight present (Psych) Judgement: Fair judgement present (Psych) Office Procedures Post Void Residual Post Residual Void Post Void Residual (PVR): 87072-[id number] Void Residual by ultrasound Results AMB Urinalysis, Automated UA Leukoctes 0 Josiah/uL Last Edit by Guerda Hamm on 11/01/23 14:30 UA Nitrite Negative Last Edit by Guerda Hamm on 11/01/23 14:30 UA Urobilinogen 0.2 mg/dL Last Edit by Guerda Hamm on 11/01/23 14:30 UA Protein 0 mg/dL Last Edit by Guerda Hamm on 11/01/23 14:30 UA pH 6.0 Last Edit by Guerda Hamm on 11/01/23 14:30 UA Blood 10 Kevin/uL Last Edit by Guerda Hamm on 11/01/23 14:30 UA Specific [place] 1.025 Last Edit by Idomoolinda Hamm on 11/01/23 14:30 UA Ketone Negative Last Edit by Guerda Hamm on 11/01/23 14:30 UA Bilirubin 0 mg/dL Last Edit by Guerda Hamm on 11/01/23 14:30 UA Glucose 0 mg/dL Last Edit by Guerda Hamm on 11/01/23 14:30 Results Reviewed Results Reviewed: Laboratory Last Values Urine pH (Auto) 6.0 11/01/23 14:17 Specific [place] (Auto) 1.025 11/01/23 14:17 Urine Protein (Auto) 0 mg/dL 11/01/23 14:17 Glucose (UA)(Auto) 0 mg/dL 11/01/23 14:17 Urine Ketones (Auto) Negative 11/01/23 14:17 Urine Blood (Auto) 10 Kevin/uL 11/01/23 14:17 Urine Nitrite (Auto) Negative 11/01/23 14:17 Urine Bilirubin (Auto) 0 mg/dL 11/01/23 14:17 Urine Urobilinogen (Auto) 0.2 mg/dL 11/01/23 14:17 Leukocyte Esterase (Auto) 0 Josiah/uL 11/01/23 14:17 Assessment & Plan Assessment & Plan (1) Nocturia: Comment: ff'd at [facility] Code(s): R35.1 - Nocturia Plan In office urinalysis results reviewed with the patient today; as noted above; will send for urine cytology. PVR 12 mL. Discussed at length potential causes of nocturia. Start terazosin as discussed and prescribed. Will obtain PSA for further assessment evaluation. Will obtain retroperitoneal ultrasound for further assessment evaluation. Discussed importance of limiting fluids 2-3 hours prior to bed to assist with decreasing episodes of nocturia. Discussed other lifestyle modifications and interventions for dry mouth. Discussed possible near future in office urodynamics and or cystoscopy for further assessment evaluation. Follow-up in 6 weeks with PVR, imaging, and labs to be completed prior; or sooner with any issues, concerns, and or questions. Orders: Orders AMB Urinalysis Automated Today Z13.9 - Encounter for screening, unspecified Prostate Specific Antigen Today N40.0 - Benign prostatic hyperplasia without lower urinary tract symptoms Urine Cytology Today R35.1 - Nocturia AMB Post Void Residual by ultrasound Today R35.1 - Nocturia US retroperitoneal comp Today R35.1 - Nocturia Medications: New terazosin 5 mg PO BEDTIME 30 days 30 caps 1RF N40.1 - Benign prostatic hyperplasia with lower urinary tract symptoms, R35.0 - Frequency of micturition Patient Instructions: The patient had an opportunity to ask questions regarding the treatment plan. All questions were answered. Physical exam, labs, and imaging were discussed and reviewed in detail. As well as risks, benefits, and discussion of treatment choices. No major barriers to understanding were identified. The patient expressed understanding and agreement with the above treatment plan. The patient was made aware they should contact our office by phone for worsening of their current condition, the appearance of new symptoms, or with any questions or concerns. Compliance is encouraged with any medications and follow up testing that is ordered. It is a privilege to be allowed the opportunity to participate in? your urological care.? Again, if you have any questions or concerns If you have any questions or concerns please do not hesitate to contact me. The office is [phone]. This note is constructed using voice recognition software. While every effort has been made to ensure accuracy store stock help errors may have been included. Yours sincerely, NATHANAEL Matson Coding Level of Care Code New Pt Level 4 (71366) Diagnoses Nocturia R35.1 CPT Codes Post Residual Void - PVR CPT Code: 74179-Ckbv Void Residual by ultrasound ([id number])
== END 2023-11-01 14:54 | disposition home or self-care (01) ==
PROVIDERS: PCP Internal Medicine; Visit Provider Nurse Practitioner Family
DX: R35.1 Nocturia (principal)
CPT/HCPCS: 99204

== ENCOUNTER 2023-12-20 12:28 | Outpatient (REF) | payer OTHER, SELFPAY ==
--- NOTE | ~2023-12-20 | US_ITS ---
EXAMINATION: US RETROPERITONEAL COMPLETE (RENAL) CLINICAL INFORMATION: Nocturia. COMPARISON: None available. TECHNIQUE: Real-time imaging of the kidneys and bladder. FINDINGS: RIGHT KIDNEY: 12.7 x 5.2 x 5.0 cm (SAG x AP x TRV). The kidney is normal in size, contour, and echogenicity. Renal cortical thickness is normal. No calculi or focal parenchymal lesions. No hydronephrosis. LEFT KIDNEY: 11.4 x 5.0 x 5.9 cm (SAG x AP x TRV). The kidney is normal in size, contour, and echogenicity. Renal cortical thickness is normal. No renal calculi or hydronephrosis. 2.7 x 2.9 x 2.7 cm. BLADDER: Well distended and normal. Bilateral ureteral jets are demonstrated. Prevoid bladder volume is 166 mL. Postvoid bladder volume is 14 mL. ADDITIONAL FINDINGS: Heterogeneous prostate measures 34 mL. US/US retroperitoneal comp IMPRESSION: 2.9 cm left upper pole renal cyst.
== END 2023-12-20 12:29 | disposition home or self-care (01) ==
LOC: HO.US 12:28
PROVIDERS: PCP Internal Medicine; Visit Provider Nurse Practitioner Family
DX: R35.1 Nocturia (principal)
CPT/HCPCS: 76770

== ENCOUNTER 2023-12-22 06:34 | Outpatient (REF) | payer OTHER, SELFPAY | END 2023-12-22 06:35 | disposition home or self-care (01) | LOC: HO.HMGCLDS 06:34 | PROVIDERS: PCP Internal Medicine; Visit Provider Nurse Practitioner Family | DX: Z12.5 Encounter for screening for malignant neoplasm of prostate (principal); N40.0 Benign prostatic hyperplasia without lower urinary tract symptoms | CPT/HCPCS: 36415; 84153 ==

== ENCOUNTER 2024-01-03 13:19 | Outpatient (AMB) | payer OTHER, SELFPAY ==
--- NOTE | 2024-01-03 13:05 | A.OFFVIS_ITS ---
Intake Intake Visit Reasons: 2m/US/PSA(set) Intake Note: Patient presents for follow up visit for nocturia, ultrasound and lab results Imagin12/20/23 PSA: 0.50 Urology Medications: Terazosin Blood Thinner: aspirin PVR: 27 ml Correctional Case Manager Required: No Accompanied by: Self / Same As Patient Allergies No Known Allergies Allergy (Verified 01/03/24 14:21) Medication List - Last Reconciled 01/04/24 by JANAK MatsonP- aspirin 81 mg PO DAILY atorvastatin 80 mg PO DAILY levothyroxine 175 mcg PO DAILY lisinopril 5 mg PO DAILY oxybutynin chloride ER 10 mg PO DAILY 30 days zolpidem 5 mg PO BEDTIME PRN HPI HPI Comments History of Present Illness Details Jose J Mazariegos is a very pleasant 53-year-old male patient of . He has a past medical history of chronic left shoulder pain, hypertension, nocturia, insomnia, muscle spasticity, history of tongue cancer in 2015 status post chemo and radiation treatment, dyslipidemia, hypothyroidism, and allergic rhinitis. He presents to the office today for follow-up. Of note, patient was seen approximately 2 months ago as a new patient for nocturia at which time a retroperitoneal ultrasound was ordered and performed and these results were reviewed with the patient today. He was also started on 5 mg of t erazosin at . Right kidney with no calculi, lesions, and or hydronephrosis noted. Left kidney with no calculi or hydronephrosis. There is a 2.9 cm renal cysts. The bladder is well distended and normal. Bilateral ureteral jets are demonstrated. Pre void bladder volume is approximately 165 mL. Postvoid bladder volume is approximately 15 mL. Heterogeneous prostate measures approximately 35 mL. In discussion with the patient today he reports no improvement in bothersome nocturia despite terazosin 5 mg at bedtime. He has previously followed up with [facility] Dr. Lyon for ongoing nocturia. He reports symptoms to have been present for over 4 years however does feel nocturia is worsening. He reports episodes of nocturia up to 3-8 times per night. He otherwise denies urinary urgency, urinary frequency, incontinence, hematuria, dysuria, foul smelling urine, cnary stream, flank pain, fever, and or chills. He discusses having trialed Flomax 0.4 mg daily as well as 0.8 mg daily with no improvement in nocturia in the past. PSA results are as follows: 03/18--1.2, 12/19--0.5. Discussed obtaining sleep study to rule out sleep apnea. He discusses given his previous history of tongue cancer he does tend to experience dry throat and mouth and does drink fluids during his episodes of nocturia. In office urinalysis results reviewed with the patient today microscopic hematuria noted. Discussed at length potential causes for lower urinary tract symptoms patient is experiencing. previous urine cytology 12/18--Negative for high-grade urothelial carcinoma. PVR 27 mL. He otherwise offers no other issues or concerns at this time. [facility] Medical History Chronic left shoulder pain Essential hypertension Fall (on)(from) sidewalk curb, initial encounter Impaired fasting glucose Nocturia Primary insomnia Muscle spasticity History of tongue cancer Dyslipidemia Acquired hypothyroidism Rhinitis, allergic Surgical History Hx of colonoscopy History of surgery History of umbilical hernia Family History Father Unknown family medical history Mother COPD (chronic obstructive pulmonary disease) Son Juvenile onset diabetes mellitus with hyperosmolar coma Social History Housing: House Alcohol intake: current Alcohol intake frequency: a few times a month Patient Tobacco Use Status: Former Tobacco user Years Smoked: 2 yrs e-Cigarette/Vaping Use: Never Used service: No Current occupational status: employed Cognitive needs: No Hearing needs: No Vision needs: Yes Review of Systems Const Reports as per HPI Eyes Reports no additional complaints ENT Reports as per HPI Card Reports as per HPI Resp Reports no additional complaints Reports as per HPI Musc Reports as per HPI Neuro Reports no additional complaints Psych Reports no additional complaints Endo Reports as per [facility] Physical Exam Const General: cooperative, healthy appearing, comfortable, no acute distress, well developed, alert and awake Orientation/consciousness: patient oriented x3 HEENT Head: Yes normal to inspection, Yes normocephalic and Yes atraumatic Ears: hearing grossly normal bilaterally Eyes General: appearance normal, both eyes and all related structures Neck Neck: Yes normal visual inspection and Yes trachea midline Chest Chest palpation & inspection: normal inspection of the chest Resp Effort & Inspection: normal respiratory effort and able to speak in complete sentences Cardio Rate: regular rate GI Inspection: Yes normal to inspection General: Yes no CVA tenderness Back/Spine/Pelvis Back: no CVA tenderness Skin General skin exam: no rashes or lesions noted Neuro General: patient oriented x3 Extrem General: Yes normal to inspection Psych Appearance: grossly normal and well kempt Mental Status: mental status grossly normal Speech and movement: Normal speech and movement present and Clear speech present Affect: normal affect Attitude: cooperative Thought process: Normal thought process present Thought content: Normal thought content present Insight: Fair insight present (Psych) Judgement: Fair judgement present (Psych) Office Procedures Post Void Residual Post Residual Void Post Void Residual (PVR): 27 [id number] Void Residual by ultrasound Results AMB Urinalysis, Automated UA Leukoctes 0 Josiah/uL Last Edit by Valarie Knowles CMA on 01/03/24 13 :44 UA Nitrite Negative Last Edit by Valarie Knowles CMA on 01/03/24 13: 44 UA Urobilinogen 0.2 mg/dL Last Edit by Valarie Knowles CMA on 4 13:44 UA Protein 0 mg/dL Last Edit by Valarie Knowles CMA on 01/03/24 13:44 UA pH 6.0 Last Edit by Valarie Knowles CMA on 01/03/24 13:44 UA Blood 10 Kevin/uL Last Edit by Valarie Knowles CMA on 01/03/24 13:44 UA Specific [place] 1.010 Last Edit by Valarie Knowles CMA on 13:44 UA Ketone Negative Last Edit by Valarie Knowles CMA on 01/03/24 13:4 4 UA Bilirubin 0 mg/dL Last Edit by Valarie Knowles CMA on 01/03/24 13: 44 UA Glucose 0 mg/dL Last Edit by Valarie Knowles [facility] on 01/03/24 13:44 Results Reviewed Results Reviewed: Laboratory Last Values Urine pH (Auto) 6.0 01/03/24 13:31 Specific [place] (Auto) 1.010 01/03/24 13:31 Urine Protein (Auto) 0 mg/dL 01/03/24 13:31 Glucose (UA)(Auto) 0 mg/dL 01/03/24 13:31 Urine Ketones (Auto) Negative 01/03/24 13:31 Urine Blood (Auto) 10 Kevin/uL 01/03/24 13:31 Urine Nitrite (Auto) Negative 01/03/24 13:31 Urine Bilirubin (Auto) 0 mg/dL 01/03/24 13:31 Urine Urobilinogen (Auto) 0.2 mg/dL 01/03/24 13:31 Leukocyte Esterase (Auto) 0 Josiah/uL 01/03/24 13:31 Date of Service: 12/20/23 EXAMINATION: US RETROPERITONEAL COMPLETE (RENAL) FINDINGS: RIGHT KIDNEY: 12.7 x 5.2 x 5.0 cm (SAG x AP x TRV). The kidney is normal in size, contour, and echogenicity. Renal cortical thickness is normal. No calculi or focal parenchymal lesions. No hydronephrosis. LEFT KIDNEY: 11.4 x 5.0 x 5.9 cm (SAG x AP x TRV). The kidney is normal in size, contour, and echogenicity. Renal cortical thickness is normal. No renal calculi or hydronephrosis. 2.7 x 2.9 x 2.7 cm. BLADDER: Well distended and normal. Bilateral ureteral jets are demonstrated. Prevoid bladder volume is 166 mL. Postvoid bladder volume is 14 mL. ADDITIONAL FINDINGS: Heterogeneous prostate measures 34 mL. IMPRESSION: 2.9 cm left upper pole renal cysts Assessment & Plan Assessment & Plan (1) Nocturia: Comment: followed at [facility] Code(s): R35.1 - Nocturia Plan In office urinalysis results reviewed with the patient today; as noted above. PVR 27 mL. Stop terazosin. Start oxybutynin 10 mg as discussed and prescribed. Recent retroperitoneal ultrasound results reviewed with the patient today; as noted above. Recent PSA results reviewed with the patient today; as noted above. Discussed at length potential causes for nocturia. Will obtain sleep study for further assessment evaluation. Discussed possible near future in office cystoscopy and or urodynamics if symptoms persist and/or worsen. Discussed and stressed the importance of limiting fluids 3-4 hours prior to bed to decrease episodes of nocturia. Follow-up in 6 weeks with PVR; or sooner with any issues, concerns, and or questions. Orders: Orders AMB Post Void Residual by ultrasound 01/03/24 R33.9 - Retention of urine, unspecified AMB Urinalysis Automated 01/03/24 R33.9 - Retention of urine, unspecified RT home sleep study 01/03/24 R35.1 - Nocturia, R53.83 - Other fatigue Medications: New oxybutynin chloride ER 10 mg PO DAILY 30 days 30 tabs 1RF N32.81 - Overactive bladder Discontinued terazosin Discontinued Reason: Doctor's Order 5 mg PO BEDTIME 30 days 30 caps 1RF N40.1 - Benign prostatic hyperplasia with lower urinary tract symptoms, R35.0 - Frequency of micturition Patient Instructions: The patient had an opportunity to ask questions regarding the treatment plan. All questions were answered. Physical exam, labs, and imaging were discussed and reviewed in detail. As well as risks, benefits, and discussion of treatment choices. No major barriers to understanding were identified. The patient expressed understanding and agreement with the above treatment plan. The patient was made aware they should contact our office by phone for worsening of their current condition, the appearance of new symptoms, or with any questions or concerns. Compliance is encouraged with any medications and follow up testing that is ordered. It is a privilege to be allowed the opportunity to participate in? your urological care.? Again, if you have any questions or concerns If you have any questions or concerns please do not hesitate to contact me. The office is [phone]. This note is constructed using voice recognition software. While every effort has been made to ensure accuracy hotel night auditor errors may have been included. Yours sincerely, NATHANAEL Matson Coding Level of Care Code Est Pt Level 4 (42332) Diagnoses Nocturia R35.1 CPT Codes Post Residual Void - PVR CPT Code: 84772-Xncz Void Residual by ultrasound ([id number])
== END 2024-01-03 14:07 | disposition home or self-care (01) ==
PROVIDERS: PCP Internal Medicine; Visit Provider Nurse Practitioner Family
DX: R35.1 Nocturia (principal)
CPT/HCPCS: 99214

== ENCOUNTER → 2024-01-03 13:19 | Outpatient (BNVA) | payer OTHER, SELFPAY | PROVIDERS: PCP Internal Medicine; Visit Provider Nurse Practitioner Family | DX: R35.1 Nocturia (principal); R33.9 Retention of urine, unspecified | CPT/HCPCS: 51798; 81003 ==

== ENCOUNTER → 2024-02-28 13:41 | Outpatient (REF) | payer OTHER, SELFPAY | LOC: HO.SL 13:41 | PROVIDERS: Visit Provider Nurse Practitioner Family | DX: G47.33 Obstructive sleep apnea (adult) (pediatric) (principal); R53.83 Other fatigue; R35.1 Nocturia | CPT/HCPCS: 95806 ==

== ENCOUNTER → 2024-02-28 13:57 | Outpatient (BNV) | payer OTHER, SELFPAY | PROVIDERS: Visit Provider Internal Medicine | DX: G47.33 Obstructive sleep apnea (adult) (pediatric) (principal) | CPT/HCPCS: 95806 ==

== ENCOUNTER 2024-04-15 13:15 | Outpatient (AMB) | payer OTHER, SELFPAY ==
--- NOTE | 2024-04-15 13:32 | A.OFFVIS_ITS ---
Intake Visit Reasons: 6w/PVR Intake Note: Patient presents for follow up visit for Nocturia Urology Medications: Oxybutynin Blood Thinner: aspirin PVR: 80ml's Experimental Preflight Mechanic Required: No Accompanied by: Self / Same As Patient Allergies No Known Allergies Allergy (Verified 04/15/24 21:14) Medication List - Last Reconciled 04/15/24 by MIKE Matson- aspirin 81 mg PO DAILY atorvastatin 80 mg PO DAILY levothyroxine 175 mcg PO DAILY lisinopril 5 mg PO DAILY oxybutynin chloride ER 10 mg PO DAILY 90 days zolpidem 5 mg PO BEDTIME PRN HPI Comments Details: Jose J Mazariegos is a very pleasant 53-year-old male patient of Dr. Rooney. He has a past medical history of chronic left shoulder pain, hypertension, nocturia, insomnia, muscle spasticity, history of tongue cancer in 2015 status post chemo and radiation treatment, dyslipidemia, hypothyroidism, and allergic rhinitis. He presents to the office today for follow-up of his nocturia. Recent sleep study results reviewed with the patient today. Discussed recommendations of weight reduction and position therapy. He does report feeling 10 mg of oxybutynin daily has been helpful in his nocturia however he does continue to have episodes of nocturia. He reports it is not as frequent as before. Previous workup has included a retroperitoneal ultrasound noting right kidney with no calculi, lesions, and or hydronephrosis noted. Left kidney with no calculi or hydronephrosis. There is a 2.9 cm renal cysts. The bladder is well distended and normal. Bilateral ureteral jets are demonstrated. Pre void bladder volume is approximately 165 mL. Postvoid bladder volume is approximately 15 mL. Heterogeneous prostate measures approximately 35 mL. He has previously trialed terazosin as well as Flomax with no improvement in his nocturia. Discussed variability and nocturia. In office urinalysis results reviewed with the patient today. PVR 80 mL. He reports to be following up with his PCP for ongoing left-sided neck/shoulder pain he has been experiencing. He otherwise denies urinary urgency, urinary frequency, incontinence, hematuria, dysuria, foul smelling urine, changes in urinary stream, flank pain, fever, and or chills. PSA results are as follows: 03/18--1.2, 12/19--0.5. He discusses given his previous history of tongue cancer and tends to experience dry throat and mouth and does drink fluids frequently even upon wakening during episodes of nocturia. Discussed at length potential causes for lower urinary tract symptoms patient is experiencing. Previous urine cytology 11/17--Negative for high-grade urothelial carcinoma. He otherwise offers no other issues or concerns at this time. [facility] Medical History Chronic left shoulder pain Essential hypertension Fall (on)(from) sidewalk curb, initial encounter Impaired fasting glucose Nocturia Primary insomnia Muscle spasticity History of tongue cancer Dyslipidemia Acquired hypothyroidism Rhinitis, allergic Surgical History Hx of colonoscopy History of surgery History of umbilical hernia Family History Father Unknown family medical history Mother COPD (chronic obstructive pulmonary disease) Son Juvenile onset diabetes mellitus with hyperosmolar coma Social History Housing: House Alcohol intake: current Alcohol intake frequency: a few times a month Patient Tobacco Use Status: Former Tobacco user Years Smoked: 2 yrs e-Cigarette/Vaping Use: Never Used service: No Current occupational status: employed Cognitive needs: No Hearing needs: No Vision needs: Yes Review of Systems Const Reports as per HPI Eyes Reports no additional complaints ENT Reports as per HPI Card Reports as per HPI Resp Reports no additional complaints Reports as per HPI Musc Reports as per HPI Neuro Reports no additional complaints Psych Reports no additional complaints Endo Reports as per HPI Physical Exam Const General: cooperative, healthy appearing, comfortable, no acute distress, well developed, alert and awake Orientation/consciousness: patient oriented x3 HEENT Head: Yes normal to inspection, Yes normocephalic and Yes atraumatic Ears: hearing grossly normal bilaterally Eyes General: appearance normal, both eyes and all related structures Neck Neck: Yes normal visual inspection and Yes trachea midline Chest Chest palpation & inspection: normal inspection of the chest Resp Effort & Inspection: normal respiratory effort and able to speak in complete sentences Cardio Rate: regular rate GI Inspection: Yes normal to inspection General: Yes no CVA tenderness Back/Spine/Pelvis Back: no CVA tenderness Skin General skin exam: no rashes or lesions noted Neuro General: patient oriented x3 Extrem General: Yes normal to inspection Psych Appearance: grossly normal and well kempt Mental Status: mental status grossly normal Speech and movement: Normal speech and movement present and Clear speech present Affect: normal affect Attitude: cooperative Thought process: Normal thought process present Thought content: Normal thought content present Insight: Fair insight present (Psych) Judgement: Fair judgement present (Psych) Office Procedures Post Void Residual Post Residual Void Post Void Residual (PVR): 80 [id number] Void Residual by ultrasound Results AMB Urinalysis, Automated UA Leukoctes 0 Josiah/uL Last Edit by [employer] on 04/15/24 14:02 UA Nitrite Negative Last Edit by [employer] on 04/15/24 14:02 UA Urobilinogen 0.2 mg/dL Last Edit by [employer] on 04/15/24 14:02 UA Protein 0 mg/dL Last Edit by [employer] on 04/15/24 14:02 UA pH 6.0 Last Edit by [employer] on 04/15/24 14:02 UA Blood 10 Kevin/uL Last Edit by [employer] on 04/15/24 14:02 UA Specific [place] 1.010 Last Edit by [employer] on 04/15/24 14:02 UA Ketone Positive Last Edit by [employer] on 04/15/24 14:02 UA Bilirubin 0 mg/dL Last Edit by [employer] on 04/15/24 14:02 UA Glucose 0 mg/dL Last Edit by [employer] on 04/15/24 14:02 Results Reviewed Results Reviewed: Laboratory Last Values Urine pH (Auto) 6.0 04/15/24 13:40 Specific [place] (Auto) 1.010 04/15/24 13:40 Urine Protein (Auto) 0 mg/dL 04/15/24 13:40 Glucose (UA)(Auto) 0 mg/dL 04/15/24 13:40 Urine Ketones (Auto) Positive 04/15/24 13:40 Urine Blood (Auto) 10 Kevin/uL 04/15/24 13:40 Urine Nitrite (Auto) Negative 04/15/24 13:40 Urine Bilirubin (Auto) 0 mg/dL 04/15/24 13:40 Urine Urobilinogen (Auto) 0.2 mg/dL 04/15/24 13:40 Leukocyte Esterase (Auto) 0 Josiah/uL 04/15/24 13:40 Assessment & Plan Assessment & Plan (1) Nocturia: Comment: followed at [facility] [place] Code(s): R35.1 - Nocturia Category: Medical Plan In office urinalysis results reviewed with the patient today; as noted above. PVR 80 mL. Continue oxybutynin 10 mg daily as discussed and prescribed; refill provided. Recent sleep study results reviewed with the patient today; as noted above. Discussed, educated, and stressed the importance of limiting fluids 2-3 hours prior to bed to decrease episodes of nocturia; this was discussed at length. Discussed biotin for dry mouth and or hard candy/mints to assit with dry mouth Discussed possible near future in office cystoscopy and or urodynamics for further assessment evaluation if symptoms persist and/or worsen. Follow-up in 3 months with PVR; or sooner with any issues, concerns, and or questions. Orders: Orders AMB Urinalysis Automated Today Z13.9 - Encounter for screening, unspecified AMB Post Void Residual by ultrasound Today R35.1 - Nocturia Medications: Changed From oxybutynin chloride ER 10 mg PO DAILY 30 days 30 tabs 0RF N32.81 - Overactive bladder To oxybutynin chloride ER 10 mg PO DAILY 90 days 90 tabs 0RF N32.81 - Overactive bladder Refilled oxybutynin chloride ER 10 mg PO DAILY 90 days 90 tabs 1RF N32.81 - Overactive bladder Patient Instructions: The patient had an opportunity to ask questions regarding the treatment plan. All questions were answered. Physical exam, labs, and imaging were discussed and reviewed in detail. As well as risks, benefits, and discussion of treatment choices. No major barriers to understanding were identified. The patient expressed understanding and agreement with the above treatment plan. The patient was made aware they should contact our office by phone for worsening of their current condition, the appearance of new symptoms, or with any questions or concerns. Compliance is encouraged with any medications and follow up testing that is ordered. It is a privilege to be allowed the opportunity to participate in? your urological care.? Again, if you have any questions or concerns If you have any questions or concerns please do not hesitate to contact me. The office is [phone]. This note is constructed using voice recognition software. While every effort has been made to ensure accuracy grants assistant errors may have been included. Yours sincerely, MIKE Matson-AMBER Coding Level of Care Code Est Pt Level 4 (44019) Diagnoses Nocturia R35.1 CPT Codes Post Residual Void - PVR CPT Code: 71367-Qbgs Void Residual by ultrasound ([id number]) Time Spent (min) 25
== END 2024-04-15 14:36 | disposition home or self-care (01) ==
PROVIDERS: PCP Internal Medicine; Visit Provider Nurse Practitioner Family
DX: R35.1 Nocturia (principal); Z13.9 Encounter for screening, unspecified
CPT/HCPCS: 99214

== ENCOUNTER → 2024-04-15 13:15 | Outpatient (BNVA) | payer OTHER, SELFPAY | PROVIDERS: PCP Internal Medicine; Visit Provider Nurse Practitioner Family | DX: R35.1 Nocturia (principal); Z79.899 Other long term (current) drug therapy | CPT/HCPCS: 51798; 81003 ==

== ENCOUNTER 2024-07-17 14:09 | Outpatient (AMB) | payer OTHER, SELFPAY ==
--- NOTE | 2024-07-17 14:30 | A.OFFVIS_ITS ---
Intake Visit Reasons: 3m/PVR Intake Note: Patient presents for follow up visit for Nocturia Urology Medications: Oxybutynin Blood Thinner: aspirin PVR: 48ml's Tactical Debriefer Required: No Accompanied by: Self / Same As Patient Allergies No Known Allergies Allergy (Verified 07/17/24 20:01) Medication List - Last Reconciled 07/17/24 by JANAK MatsonP- aspirin 81 mg PO DAILY atorvastatin 80 mg PO DAILY levothyroxine 175 mcg PO DAILY lisinopril 5 mg PO DAILY mirabegron ER (Myrbetriq) 25 mg PO DAILY 30 days zolpidem 5 mg PO BEDTIME PRN HPI Comments Details: Jose J Mazariegos is a very pleasant 53-year-old male patient of Dr. Rooney. He has a past medical history of chronic left shoulder pain, hypertension, nocturia, insomnia, muscle spasticity, history of tongue cancer in 2015 status post chemo and radiation treatment, dyslipidemia, hypothyroidism, and allergic rhinitis. He presents to the office today for follow-up of his nocturia. In discussion with the patient today he reports somewhat improvement in increased episodes of nocturia with oxybutynin 10 mg daily however he feels episodes of nocturia are inconsistent. He describes episodes of nocturia up to 8 times per night however has nights where he gets up 1 or 2 times per night. Previous workup has included a sleep study that recommended weight reduction and position therapy. Previous workup has also included a retroperitoneal ultrasound noting right kidney with no calculi, lesions, and or hydronephrosis noted. Left kidney with no calculi or hydronephrosis. There is a 2.9 cm renal cysts. The bladder is well distended and normal. Bilateral ureteral jets are demonstrated. Pre void bladder volume is approximately 165 mL. Postvoid bladder volume is approximately 15 mL. Heterogeneous prostate measures approximately 35 mL. He has previously trialed terazosin as well as Flomax with no improvement in his nocturia. Discussed variability and nocturia. In office urinalysis results reviewed with the patient today. PVR 48 mL. He otherwise denies urinary urgency, urinary frequency, incontinence, hematuria, dysuria, foul smelling urine, changes in urinary stream, flank pain, fever, and or chills. PSA results are as follows: 03/18--1.2, 12/19--0.5. He discusses given his previous history of tongue cancer and tends to experience dry throat and mouth and does drink fluids frequently even upon wakening during episodes of nocturia. Discussed at length potential causes for lower urinary tract symptoms patient is experiencing. Previous urine cytology 11/17 Negative for high-grade urothelial carcinoma. He otherwise offers no other issues or concerns at this time. [facility] Medical History Chronic left shoulder pain Essential hypertension Fall (on)(from) sidewalk curb, initial encounter Impaired fasting glucose Nocturia Primary insomnia Muscle spasticity History of tongue cancer Dyslipidemia Acquired hypothyroidism Rhinitis, allergic Surgical History Hx of colonoscopy History of surgery History of umbilical hernia Family History Father Unknown family medical history Mother COPD (chronic obstructive pulmonary disease) Son Juvenile onset diabetes mellitus with hyperosmolar coma Social History Housing: House Alcohol intake: current Alcohol intake frequency: a few times a month Patient Tobacco Use Status: Former Tobacco user Years Smoked: 2 yrs e-Cigarette/Vaping Use: Never Used service: No Current occupational status: employed Cognitive needs: No Hearing needs: No Vision needs: Yes Review of Systems Const Reports as per HPI Eyes Reports no additional complaints ENT Reports as per HPI Card Reports as per HPI Resp Reports no additional complaints Reports as per HPI Musc Reports as per HPI Neuro Reports no additional complaints Psych Reports no additional complaints Endo Reports as per HPI Physical Exam Const General: cooperative, healthy appearing, comfortable, no acute distress, well developed, alert and awake Orientation/consciousness: patient oriented x3 HEENT Head: Yes normal to inspection, Yes normocephalic and Yes atraumatic Ears: hearing grossly normal bilaterally Eyes General: appearance normal, both eyes and all related structures Neck Neck: Yes normal visual inspection and Yes trachea midline Chest Chest palpation & inspection: normal inspection of the chest Resp Effort & Inspection: normal respiratory effort and able to speak in complete sentences Cardio Rate: regular rate GI Inspection: Yes normal to inspection General: Yes no CVA tenderness Back/Spine/Pelvis Back: no CVA tenderness Skin General skin exam: no rashes or lesions noted Neuro General: patient oriented x3 Extrem General: Yes normal to inspection Psych Appearance: grossly normal and well kempt Mental Status: mental status grossly normal Speech and movement: Normal speech and movement present and Clear speech present Affect: normal affect Attitude: cooperative Thought process: Normal thought process present Thought content: Normal thought content present Insight: Fair insight present (Psych) Judgement: Fair judgement present (Psych) Office Procedures Post Void Residual Post Residual Void Post Void Residual (PVR): 48 [id number] Void Residual by ultrasound Results AMB Urinalysis, Automated UA Leukoctes 0 Josiah/uL Last Edit by [employer] on 07/17/24 14:42 UA Nitrite Last Edit by [employer] on 07/17/24 14:42 UA Urobilinogen 0.2 mg/dL Last Edit by [employer] on 07/17/24 14:42 UA Protein 0 mg/dL Last Edit by [employer] on 07/17/24 14:42 UA pH 6.0 Last Edit by [employer] on 07/17/24 14:42 UA Blood 0 Kevin/uL Last Edit by [employer] on 07/17/24 14:42 UA Specific [place] 1.010 Last Edit by [employer] on 07/17/24 14:42 UA Ketone Negative Last Edit by [employer] on 07/17/24 14:42 UA Bilirubin 0 mg/dL Last Edit by [employer] on 07/17/24 14:42 UA Glucose 0 mg/dL Last Edit by [employer] on 07/17/24 14:42 Results Reviewed Results Reviewed: Laboratory Last Values Urine pH (Auto) 6.0 07/17/24 14:40 Specific [place] (Auto) 1.010 07/17/24 14:40 Urine Protein (Auto) 0 mg/dL 07/17/24 14:40 Glucose (UA)(Auto) 0 mg/dL 07/17/24 14:40 Urine Ketones (Auto) Negative 07/17/24 14:40 Urine Blood (Auto) 0 Kevin/uL 07/17/24 14:40 Urine Bilirubin (Auto) 0 mg/dL 07/17/24 14:40 Urine Urobilinogen (Auto) 0.2 mg/dL 07/17/24 14:40 Leukocyte Esterase (Auto) 0 Josiah/uL 07/17/24 14:40 Assessment & Plan Assessment & Plan (1) Nocturia: Comment: followed at [facility] [place] Code(s): R35.1 - Nocturia Category: Medical Plan In office urinalysis results reviewed with the patient today; as noted above. PVR 48 mL. Stop oxybutynin. Start Myrbetriq as discussed and prescribed. Discussed, educated, and stressed the importance of limiting fluids 2-3 hours prior to bed to decrease episodes of nocturia; this was discussed at length. Discussed biotin for dry mouth and or hard candy/mints to assit with dry mouth. Discussed in office cystoscopy and or urodynamics for further assessment evaluation if symptoms persist and/or worsen. Follow-up next available in office cystoscopy; or sooner with any issues, concerns, and or questions. Orders: Orders AMB Urinalysis Automated Today Z13.9 - Encounter for screening, unspecified AMB Post Void Residual by ultrasound Today R35.1 - Nocturia Medications: New mirabegron ER (Myrbetriq) 25 mg PO DAILY 30 tabs 2RF 30 days N30.10 - Interstitial cystitis (chronic) without hematuria, N32.81 - Overactive bladder, R35.1 - Nocturia, R39.15 - Urgency of urination Discontinued oxybutynin chloride ER Discontinued Reason: Doctor's Order 10 mg PO DAILY 90 tabs 1RF 90 days N32.81 - Overactive bladder Patient Instructions: The patient had an opportunity to ask questions regarding the treatment plan. All questions were answered. Physical exam, labs, and imaging were discussed and reviewed in detail. As well as risks, benefits, and discussion of treatment choices. No major barriers to understanding were identified. The patient expressed understanding and agreement with the above treatment plan. The patient was made aware they should contact our office by phone for worsening of their current condition, the appearance of new symptoms, or with any questions or concerns. Compliance is encouraged with any medications and follow up testing that is ordered. It is a privilege to be allowed the opportunity to participate in? your urological care.? Again, if you have any questions or concerns If you have any questions or concerns please do not hesitate to contact me. The office is [phone]. This note is constructed using voice recognition software. While every effort has been made to ensure accuracy filter press supervisor errors may have been included. Yours sincerely, MIKE Matson-BC Coding Level of Care Code Est Pt Level 4 (76864) Diagnoses Nocturia R35.1 CPT Codes Post Residual Void - PVR CPT Code: 97386-Sosv Void Residual by ultrasound ([id number])
== END 2024-07-17 15:10 | disposition home or self-care (01) ==
PROVIDERS: PCP Internal Medicine; Visit Provider Nurse Practitioner Family
DX: Z13.9 Encounter for screening, unspecified (principal); R35.1 Nocturia
CPT/HCPCS: 99214

== ENCOUNTER → 2024-07-17 14:09 | Outpatient (BNVA) | payer OTHER, SELFPAY | PROVIDERS: PCP Internal Medicine; Visit Provider Nurse Practitioner Family | DX: R35.1 Nocturia (principal); Z79.899 Other long term (current) drug therapy | CPT/HCPCS: 51798; 81003 ==

== ENCOUNTER 2024-08-12 08:56 | Outpatient (AMB) | payer OTHER, SELFPAY ==
[2024-08-12 09:25] VITALS: BP 112/70; PULSE 69; O2SAT 95; BMI 34.1
--- NOTE | 2024-08-12 09:25 | A.OFFPC_ITS ---
Vital Signs 08/12/24 09:25 Height 5 ft 10 in Weight 238 lb BMI 34.1 BP 112/70 Blood Pressure Location Lt brachial Position Sitting Pulse 69 Pulse Source Pulse Oximeter Pulse Oximetry (%) 95 Oxygen Delivery Method Room Air Intake Visit Reasons: PE Intake Note: Pt is here today for his PE: Last colonoscopy 12/31/23 Allergies No Known Allergies Allergy (Verified 08/17/24 17:25) Medication List - Last Reconciled 08/17/24 by Yokasta Rooney MD aspirin 81 mg PO DAILY atorvastatin 80 mg PO DAILY levothyroxine 175 mcg PO DAILY lisinopril 5 mg PO DAILY mirabegron ER (Myrbetriq) 25 mg PO DAILY 30 days zolpidem 5 mg PO BEDTIME PRN Tobacco use date assessed: 08/12/24 Dental Screening Dental Screen Date: 08/12/24 Did you have a dental visit in the last 12 months?: No Did you have a dental problem in the last 6 months where you did not have access to dental care?: No Was dental information given to patient?: Patient has dentist HPI PE HPI Details 54 year-old male with hypertension, pred iabetes, primary insomnia, dyslipidemia and acquired hypothyroidism, here today for his physical exam.. He is up-to-date with his screening colonoscopy done 12/31/2023 done at [facility] [address] Casas with 3 polyps removed and internal hemorrhoids seen, repeat due again in 2028. He has been compliant with taking his medications, blood pressure is well controlled with lisinopril 5 mg taken once a day. He takes zolpidem 5 mg at bedtime as needed for insomnia. He is currently being [place] [facility] [place]. He has tried oxybutynin 10 mg daily, however this has not been helpful with controlling his frequent nighttime urination. Previous workup included a sleep study that recommended weight reduction and position therapy, no indication for CPAP. He had a retroperitoneal ultrasound noting right kidney with no calculi, lesions, and or hydronephrosis noted, left kidney with no calculi or hydronephrosis, there is a 2.9 cm renal cysts, bladder is well distended and normal, and . Bilateral ureteral jets were demonstrated. He has previously trialed terazosin as well as Flomax with no improvement in his nocturia. PSA levels were within normal limits. He was recently started on mirabegron ER 25 mg daily, too early to tell whether it is working. Had recent sleep study done which showed mild obstructive sleep apnea, recommended weight reduction and position therapy. It also showed presence of nocturnal hypoxemia with average O2 sat 91%, lowest O2 sat not 58% and O2 sat below 88% for 8 minutes, recommend to rule out any cardiac disease . [facility] Medical History (Updated 08/12/24 @ 15:16 by Yokasta Rooney MD) Obstructive sleep apnea hypopnea, mild Nocturnal hypoxemia Chronic left shoulder pain Essential hypertension Fall (on)(from) sidewalk curb, initial encounter Impaired fasting glucose Nocturia Primary insomnia Muscle spasticity History of tongue cancer Dyslipidemia Acquired hypothyroidism Rhinitis, allergic Surgical History (Updated 08/12/24 @ 15:17 by Yokasta Rooney MD) History of herniorrhaphy Hx of colonoscopy History of surgery History of umbilical hernia Family History Father Unknown family medical history Mother COPD (chronic obstructive pulmonary disease) Son Juvenile onset diabetes mellitus with hyperosmolar coma Social History Housing: House Alcohol intake: current Alcohol intake frequency: a few times a month Patient Tobacco Use Status: Former Tobacco user Years Smoked: 2 yrs e-Cigarette/Vaping Use: Never Used service: No Current occupational status: employed Cognitive needs: No Hearing needs: No Vision needs: Yes Questionnaire PHQ-9 Over the last 2 weeks, how often have you been bothered by any of the following problems? 1. Little interest or pleasure in doing things: not at all 2. Feeling down, depressed, or hopeless: not at all 3. Trouble falling or staying asleep, or sleeping too much: more than half the days (Disturbed sleep due to nocturia) 4. Feeling tired or having little energy: several days 5. Poor appetite or overeating: not at all 6. Feeling bad about yourself - or that you are a failure or have let yourself or your family down: not at all 7. Trouble concentrating on things, such as reading the newspaper or watching television: not at all 8. Moving or speaking so slowly that other people could have noticed. Or the opposite - being so fidgety or restless that you have been moving around a lot more than usual: not at all 9. Thoughts that you would be better off or of hurting yourself in some way: not at all Total score: 3 Depression Screening Interpretation: Negative Depression Screening Done: Yes 86761 - PHQ-9 Billing: Yes Source: Developed by Drs. Salazar Martinez, Audrey Dorado, Trace Collins and colleagues, with an educational deisi from [employer]. Thrive Questionnaire Date Thrive assessed: 08/12/24 I am a: Patient What is your living situation today?: I have a steady place to live Within the past 12 months, did the food you bought not last and you didn't have the money to get more?: Never true Within the past 12 months, did you worry whether your food would run out before you got money to buy more?: Never true Do you have trouble paying for medicines?: No Do you have trouble getting transportation to medical appointments?: No Do you have trouble paying your heating and electricity bill?: No Do you have trouble taking care of your child, family member or friend?: No Do you have trouble with day-to-day activities such as bathing, preparing meals, shopping, managing finances, etc.?: No Are you interested in more education?: No Please select the resources that you would like help with: None Currently or been in a relationship where the following occur: No concerns reported THRIVE Score: 0 AUDIT C Alcohol Use Questionnaire (AUDIT-C) 1. How often do you have a drink containing alcohol?: 2-3 times a week 2. How many drinks containing alcohol do you have on a typical day when you are drinking?: 3 or 4 3. How often do you have six or more drinks on one occasion?: Less than monthly Total Score: 5 REID-7 AMB Questionnaire REID-7 Date REID - 7 assessed: 08/12/24 Feeling nervous, anxious, or on edge: 0 = Not at all Not being able to stop or control worryin = Not at all Worrying too much about different things: 0 = Not at all Trouble relaxin = Several days Being so restless that it is hard to sit still: 0 = Not at all Becoming easily annoyed or irritable: 1 = Several days Feeling afraid as if something awful might happen: 0 = Not at all Total REID-7 score (0-4 normal; 5-9 mild; 10-14 moderate; 15-21 severe): 2 Source: Developed by Drs. Salazar Martinez, Audrey Dorado, Trace Collins and colleagues, with an educational deisi from [employer] [facility]. REID-7 Assessment Billing REID-7 Assessment Tool: REID-7 Assessment 06107 Review of Systems Const Reports no additional complaints, Denies fatigue and Denies headache(s) Eyes Details: Goes to [facility] for [facility] exam ENT Details: [facility] Reports no additional complaints, Denies dizziness and Denies headache(s) Card Denies chest pain, Denies rapid heart rate, Denies irregular heart rhythm and Denies dyspnea Resp Denies chest congestion, Denies cough and Denies dyspnea GI Denies abdominal pain, Denies bloating, Denies hematochezia, Denies change in bowel habits, Denies heartburn and Denies nausea Reports as per HPI, Denies difficulty urinating, Denies genital lesions, Denies dysuria, Denies penile discharge, Denies urinary incontinence and Denies urinary urgency Musc Reports stiffness (left side of neck ) Skin/Breast Denies lesions and Denies rash Neuro Denies dizziness and Denies headache(s) Psych Reports no additional complaints Endo Denies fatigue, Denies polyphagia and Denies polydipsia Grabiel/Lymph Reports no additional complaints Aller/Immun Reports seasonal rhinorrhea Physical exam (Primary Care) Vital Signs: Last Vital Signs Pulse 69 08/12/24 09:25 BP 112/70 08/12/24 09:25 Pulse Ox 95 08/12/24 09:25 Oxygen Delivery Method Room Air 08/12/24 09:25 BMI result Body Mass Index 34.1 BMI Assessment/Plan discussion: High BMI High, discussed plan: lifestyle, weight reduction, dietary, physical activity and alcohol moderation Tobacco/Smoking Status: Tobacco use Status Tobacco use date assessed 08/12/24 08/12/24 09:30 Patient Tobacco Use Status Former Tobacco user 08/12/24 09:30 e-Cigarette/Vaping Use Never Used 08/12/24 09:30 PHQ-9: PHQ-9 Score PHQ-9: Total score 5 08/12/24 15:12 Depression Screening Interpretation: Negative Thrive Assessment: Date of Thrive Assessment Date Thrive assessed 08/12/24 08/12/24 09:30 Currently or been in a relationship where the following occur: No concerns reported Advance Care Planning discussion: Completed/Scanned Date of discussion: 08/12/24 Who was present: Patient Forms completed: Health Care Proxy Time spent: 16-45 minutes Actual minutes spent: 16 Const General: cooperative and no acute distress Nutritional Appearance: obese Orientation/consciousness: patient oriented x3 HENMT Ears: TM's normal bilaterally and EAC's normal General nose exam: Normal external nose present and No nasal discharge present Face and sinus: Yes face symmetric Mouth: Normal oral and palatal mucosa present and moist mucous membranes Eyes General: appearance normal, both eyes and all related structures Neck Other: Supple, no lymphadenopathy, thyroid gland nonpalpable Resp Auscultation: clear to auscultation bilaterally Cardio Other: S1-S2 present regular rate and rhythm GI Palpation (GI): Soft to palpation, nontender, no guarding and no masses Auscultation: normal bowel sounds General: Yes no CVA tenderness Male General Exam: Yes normal external exam Back/Spine/Pelvis Other: Slight tenderness on palpation over live left trapezius going to posterior aspect of left shoulder joint, full range of motion of left shoulder noted Back: no CVA tenderness Skin General skin exam: no rashes or lesions noted Neuro General: patient oriented x3, gait normal, moves all extremities, Normal light touch and pain sensation, CN's II-XI intact bilaterally and normal sensation to monofilament Extrem General: Yes full ROM, Yes no joint enlargement, Yes no pedal edema, Yes no calf tenderness and Yes normal gait Psych Appearance: grossly normal Mental Status: mental status grossly normal Speech and movement: Normal speech and movement present Affect: normal affect Attitude: cooperative Assessment and Plan Assessment & Plan (1) Annual visit for general adult medical examination with abnormal findings: Code(s): Z00.01 - Encounter for general adult medical examination with abnormal findings Plan: Will check appropriate labs. Recommended dental visit every 6 months and continue with regular eye exams, at least every 2 years. Take adequate calcium in diet and vitamin-D 3 at 2000 IU per cap once a day, in addition to weight- bearing exercises to help maintain good muscle tone and weight control. Instructed to do self-testicular exam check for any mass. Colonoscopy up-to-date due again in 2028. (2) Chronic left shoulder pain: Code(s): M25.512 - Pain in left shoulder; G89.29 - Other chronic pain Plan: Referred to physical therapy for further evaluation and management (3) Nocturnal hypoxemia: Comment: Seen on recent study with average O2 sat 91%, lowest O2 sat not 58% and O2 sat below 88% for 8 minutes. Rule out any cardiac disease or pulmonary disease. Code(s): G47.34 - Idiopathic sleep related nonobstructive alveolar hypoventilation Plan: Cardiology consult ordered (4) Obstructive sleep apnea hypopnea, mild: Comment: Seen on recent sleep study with conservative measures recommended especially weight reduction and position therapy Code(s): G47.33 - Obstructive sleep apnea (adult) (pediatric) Plan: Advised weight loss and positional therapy (5) Essential hypertension: Code(s): I10 - Essential (primary) hypertension Plan: Blood pressure at goal of less than 130/80. Continue with current medication. Reinforced importance of following a low sodium diet, getting regular exercise, and lowering stress levels. (6) Impaired fasting glucose: Code(s): R73.01 - Impaired fasting glucose Plan: Your previous fasting blood sugars were elevated above 100 mg/dL. Impaired glucose metabolism increases the risk for developing diabetes mellitus type 2, as well as heart attack and stroke later on. Lifestyle changes that promotes weight loss, healthy eating habits, and regular exercise are important, and can prevent the progression to diabetes (7) Nocturia: Comment: followed [place] [facility] Code(s): R35.1 - Nocturia Plan: Currently followed at [facility], started on mirabegron ER 25 mg daily (8) Primary insomnia: Code(s): F51.01 - Primary insomnia Plan: On zolpidem 5 mg taken as needed (9) Dyslipidemia: Code(s): E78.5 - Hyperlipidemia, unspecified Plan: Fasting lipid panel ordered . Currently on atorvastatin 80 mg daily , continue low-cholesterol diet and regular exercise, at least 30 minutes 3 to 4 times a week. Advised patient to make healthy food choices, eat more fruits, vegetables, whole grains, wild caught fish and low-fat dairy. Limit amount of meat and fried or fatty food products, as well as processed foods and fast foods. (10) Acquired hypothyroidism: Code(s): E03.9 - Hypothyroidism, unspecified Plan: Will check TSH and free T4 currently on levothyroxine 175 mcg daily in a.m. (11) Advanced directives, counseling/discussion: Code(s): Z71.89 - Other specified counseling Plan: Initiated the conversation about Advanced Directives. Advanced Directives help patients prepare for current and future decisions about their medical treatment and place of care. Discussed with patient that it is a process where a patients current condition and prognosis are reviewed, their wishes for information regarding their illness are elicited, and likely medical dilemmas are presented and options discussed. Healthcare proxy form completed today. The form can be amended as needed, reviewed yearly and make changes as needed Plan Patient reminded to get his fasting labs done, already ordered from February 2024 Orders: Orders PT Evaluation and Treatment 08/12/24 G89.29 - Other chronic pain, M25.512 - Pain in left shoulder Referrals Cardiology Referral G47.34 - Idiopathic sleep related nonobstructive alveolar hypoventilation Coding Level of Care Code Est Pt Prev Care 40-64y(22833) Diagnoses Annual visit for general adult medical examination with abnormal findings Z00.01 Chronic left shoulder pain M25.512; G89.29 Nocturnal hypoxemia G47.34 Obstructive sleep apnea hypopnea, mild G47.33 Essential hypertension I10 Impaired fasting glucose R73.01 Nocturia R35.1 Primary insomnia F51.01 Dyslipidemia E78.5 Acquired hypothyroidism E03.9 Advanced directives, counseling/discussion Z71.89 Additional Codes REID-7 Assessment Billing - REID-7 Assessment Tool: REID-7 Assessment 03225 ([id number]) Vital Signs *Quality* - Advance Care Planning discussion: Completed/Scanned ([id number]) Vital Signs *Quality* - Time spent: 16-45 minutes ([id number])
== END 2024-08-12 10:28 | disposition home or self-care (01) ==
PROVIDERS: PCP Internal Medicine; Visit Provider Internal Medicine
DX: Z00.01 Encounter for general adult medical examination with abnormal findings (principal); M25.512 Pain in left shoulder; G89.29 Other chronic pain; G47.34 Idiopathic sleep related nonobstructive alveolar hypoventilation; G47.33 Obstructive sleep apnea (adult) (pediatric); I10 Essential (primary) hypertension; R73.01 Impaired fasting glucose; R35.1 Nocturia; F51.01 Primary insomnia; E78.5 Hyperlipidemia, unspecified; E03.9 Hypothyroidism, unspecified; Z71.89 Other specified counseling

== ENCOUNTER → 2024-08-12 08:56 | Outpatient (BNVA) | payer OTHER, SELFPAY | PROVIDERS: PCP Internal Medicine; Visit Provider Internal Medicine | DX: Z00.01 Encounter for general adult medical examination with abnormal findings (principal); G89.29 Other chronic pain; M25.512 Pain in left shoulder; G47.34 Idiopathic sleep related nonobstructive alveolar hypoventilation; G47.33 Obstructive sleep apnea (adult) (pediatric); I10 Essential (primary) hypertension; R73.01 Impaired fasting glucose; R35.1 Nocturia; F51.01 Primary insomnia; E78.5 Hyperlipidemia, unspecified; E03.9 Hypothyroidism, unspecified; Z79.899 Other long term (current) drug therapy | CPT/HCPCS: 96127 ==

== ENCOUNTER 2024-08-28 14:16 | Outpatient (AMB) | payer OTHER, SELFPAY ==
--- NOTE | 2024-08-28 14:47 | MHC.OFFVIS ---
Intake Visit Reasons: cysto Intake Note: Patient presents today for cystoscopy Urology Medications: myrbetriq (patient hasn't received) Blood Thinner: aspirin URO- G Disposable Cystoscope Lot:[id number] Exp: 09/29/27 Brick Wheeler Required: No Accompanied by: Self / Same As Patient Allergies No Known Allergies Allergy (Verified 08/28/24 20:12) Medication List - Last Reconciled 08/28/24 by NATHANAEL Matson amitriptyline 25 mg PO BEDTIME 30 days aspirin 81 mg PO DAILY atorvastatin 80 mg PO DAILY gabapentin 300 mg PO BEDTIME 30 days levothyroxine 175 mcg PO DAILY lisinopril 5 mg PO DAILY naproxen (Naprosyn) 500 mg PO BEDTIME PRN zolpidem 5 mg PO BEDTIME PRN HPI Comments Details: Yair bob 54-year-old male patient of Dr. Rooney. He seen for the following urologic conditions - lower urinary tract symptoms Here for cystoscopy Lower urinary tract symptoms Primarily nocturia Did improve with oxybutynin 10 mg daily Previous evaluation has included sleep study with recommended weight reduction Imaging - renal bladder ultrasound negative. Renal cysts. Postvoid volume empty. Prostate 35 cc. PSA 12/19 0.5 PFSH Medical History Obstructive sleep apnea hypopnea, mild Nocturnal hypoxemia Chronic left shoulder pain Essential hypertension Fall (on)(from) sidewalk curb, initial encounter Impaired fasting glucose Nocturia Primary insomnia Muscle spasticity History of tongue cancer Dyslipidemia Acquired hypothyroidism Rhinitis, allergic Surgical History (Updated 08/12/24 @ 15:17 by Yokasta Rooney MD) History of herniorrhaphy Hx of colonoscopy History of surgery History of umbilical hernia Family History Father Unknown family medical history Mother COPD (chronic obstructive pulmonary disease) Son Juvenile onset diabetes mellitus with hyperosmolar coma Social History Housing: House Alcohol intake: current Alcohol intake frequency: a few times a month Patient Tobacco Use Status: Former Tobacco user Years Smoked: 2 yrs e-Cigarette/Vaping Use: Never Used service: No Current occupational status: employed Cognitive needs: No Hearing needs: No Vision needs: Yes Review of Systems Const Reports as per [facility] Eyes Reports no additional complaints ENT Reports as per [facility] Card Reports as per [facility] Resp Reports no additional complaints Reports as per [facility] Musc Reports as per [facility] Neuro Reports no additional complaints Psych Reports no additional complaints Endo Reports as per [facility] Physical Exam Const General: cooperative, healthy appearing, comfortable, no acute distress, well developed, alert and awake Orientation/consciousness: patient oriented x3 HEENT Head: Yes normal to inspection, Yes normocephalic and Yes atraumatic Ears: hearing grossly normal bilaterally Eyes General: appearance normal, both eyes and all related structures Neck Neck: Yes normal visual inspection and Yes trachea midline Chest Chest palpation & inspection: normal inspection of the chest Resp Effort & Inspection: normal respiratory effort and able to speak in complete sentences Cardio Rate: regular rate GI Inspection: Yes normal to inspection Penis: normal penis and circumcised Meatus: meatus normal Skin General skin exam: no rashes or lesions noted Neuro General: patient oriented x3 Extrem General: Yes normal to inspection Psych Appearance: grossly normal and well kempt Mental Status: mental status grossly normal Speech and movement: Normal speech and movement present and Clear speech present Affect: normal affect Attitude: cooperative Thought process: Normal thought process present Thought content: Normal thought content present Insight: Fair insight present (Psych) Judgement: Fair judgement present (Psych) Office Procedures Cystoscopy Consent Discussed risk and benefit or proposed procedure with the patient. Information consent for procedure given to the patient. Discussed technical aspects, risks, benefits and alternatives in full. Addressed all of the patient's questions and concerns regarding the procedure. The patient demonstrated knowledge and understanding. They wish to proceed with this procedure. Preparation The patient was prepped in the usual manner. A smoking pipe repairer was present and in the room. Genitalia was prepped with betadine solution in a sterile manner. Lidocaine Jelly 2% was placed into the urethra and 16Fr flexible Olympus cystoscope was inserted into the meatus after adequate lubrication. [id number] DISPOSABLE SCOPE URO-G FLEXIBLE SCOPE Procedure code (CPT) selection complete Office Meds lidocaine HCl 2 % mucosal jelly in applicator Performing Provider: NATHANAEL Matson [facility] Administered by: Bobo Rehman LPN on 08/28/24 15:09 Dose Route Admin Location Dispensed Lot Number Expiration Date NDC Pellet Machine Operator 10 mL intra-urethral 10 mL nitrofurantoin monohydrate/macrocrystals 100 mg capsule Performing Provider: NATHANAEL Matson Performing Location: [facility] Administered by: Bobo Rehman LPN on 08/28/24 15:09 Dose Route Admin Location Dispensed Lot Number Expiration Date NDC Pellet Machine Operator 100 mg PO 1 cap naproxen 500 mg tablet Performing Provider: NATHANAEL Matson Performing Location: [facility] Administered by: Bobo Rehman LPN on 08/28/24 15:09 Dose Route Admin Location Dispensed Lot Number Expiration Date NDC Pellet Machine Operator 500 mg PO 1 tab Results AMB Urinalysis, Automated UA Leukoctes 0 Josiah/uL Last Edit by Guerda Hamm on 08/28/24 16:35 UA Nitrite Last Edit by Guerda Hamm on 08/28/24 16:35 UA Urobilinogen 0.2 mg/dL Last Edit by Guerda Hamm on 08/28/24 16:35 UA Protein 0 mg/dL Last Edit by Guerda Hamm on 08/28/24 16:35 UA pH 6.0 Last Edit by Guerda Hamm on 08/28/24 16:35 UA Blood 10 Kevin/uL Last Edit by Guerda Hamm on 08/28/24 16:35 UA Specific [place] 1.015 Last Edit by Guerda Hamm on 08/28/24 16:35 UA Ketone Negative Last Edit by Guerda Hamm on 08/28/24 16:35 UA Bilirubin 0 mg/dL Last Edit by Guerda Hamm on 08/28/24 16:35 UA Glucose 0 mg/dL Last Edit by Guerda Hamm on 08/28/24 16:35 Results Reviewed Results Reviewed: Laboratory Last Values Urine pH (Auto) 6.0 08/28/24 16:33 Specific [place] (Auto) 1.015 08/28/24 16:33 Urine Protein (Auto) 0 mg/dL 08/28/24 16:33 Glucose (UA)(Auto) 0 mg/dL 08/28/24 16:33 Urine Ketones (Auto) Negative 08/28/24 16:33 Urine Blood (Auto) 10 Kevin/uL 08/28/24 16:33 Urine Bilirubin (Auto) 0 mg/dL 08/28/24 16:33 Urine Urobilinogen (Auto) 0.2 mg/dL 08/28/24 16:33 Leukocyte Esterase (Auto) 0 Josiah/uL 08/28/24 16:33 Assessment & Plan Assessment & Plan (1) Chronic interstitial cystitis: Code(s): N30.10 - Interstitial cystitis (chronic) without hematuria Category: Medical (2) Nocturia: Comment: followed at [facility] Code(s): R35.1 - Nocturia Category: Medical Plan In office urinalysis results reviewed with the patient today; as noted above; will send for urine cytology. In office cystoscopy performed; grade I-II trabeculations; bladder appeared inflammed/irritated. Discussed surgical intervention; cystoscopy, hydrodistention with bladder biopsies; patient would like to think about this at this time. Start amitriptyline, naproxen, and gabapentin at bedtime. Discussed bladder triggers/irritants; information provided. We discussed interstitial cystitis at length; all questions were answered. Follow-up in 1-3 months; or sooner with any issues, concerns, and or questions. Orders: Orders AMB Urinalysis Automated Today NATHANAEL Matson Z13.9 - Encounter for screening, unspecified AMB Cystoscopy Today NATHANAEL Matson R35.1 - Nocturia Urine Cytology Today NATHANAEL Matson Z13.9 - Encounter for screening, unspecified Medications: New amitriptyline 25 mg PO BEDTIME 30 tabs 0RF 30 days Kevon Montilla MD N30.10 - Interstitial cystitis (chronic) without hematuria naproxen (Naprosyn) 500 mg PO BEDTIME PRN 30 tabs 0RF pain Kevon Montilla MD N30.10 - Interstitial cystitis (chronic) without hematuria gabapentin 300 mg PO BEDTIME 30 caps 0RF 30 days Kevon Montilla MD N30.10 - Interstitial cystitis (chronic) without hematuria, R23.2 - Flushing, T50.905A - Adverse effect of unspecified drugs, medicaments and biological substances, initial encounter Discontinued mirabegron ER (Myrbetriq) Discontinued Reason: Doctor's Order 25 mg PO DAILY 30 tabs 2RF 30 days NATHANAEL Matson N30.10 - Interstitial cystitis (chronic) without hematuria, N32.81 - Overactive bladder, R35.1 - Nocturia, R39.15 - Urgency of urination Patient Instructions: The patient had an opportunity to ask questions regarding the treatment plan. All questions were answered. Physical exam, labs, and imaging were discussed and reviewed in detail. As well as risks, benefits, and discussion of treatment choices. No major barriers to understanding were identified. The patient expressed understanding and agreement with the above treatment plan. The patient was made aware they should contact our office by phone for worsening of their current condition, the appearance of new symptoms, or with any questions or concerns. Compliance is encouraged with any medications and follow up testing that is ordered. It is a privilege to be allowed the opportunity to participate in? your urological care.? Again, if you have any questions or concerns If you have any questions or concerns please do not hesitate to contact me. The office is [phone]. This note is constructed using voice recognition software. While every effort has been made to ensure accuracy quality analyst/technical writer errors may have been included. Yours sincerely, NATHANAEL Matson Coding Level of Care Code Est Pt Level 4 (27523) Diagnoses Chronic interstitial cystitis N30.10 Nocturia R35.1 CPT Codes Cystoscopy - CPT: 79857-[id number] ([id number])
== END 2024-08-28 15:36 | disposition home or self-care (01) ==
PROVIDERS: PCP Internal Medicine; Visit Provider Nurse Practitioner Family
DX: N30.10 Interstitial cystitis (chronic) without hematuria (principal); R35.1 Nocturia
CPT/HCPCS: 52000; 99214

== ENCOUNTER 2024-08-28 14:16 | Outpatient (REF) | payer OTHER, SELFPAY ==
[2024-08-28 16:54] LABS: Urine Cytology See Pathology rpt
== END 2024-08-28 14:17 | disposition home or self-care (01) ==
LOC: HO.LNP 14:16
PROVIDERS: PCP Internal Medicine; Visit Provider Nurse Practitioner Family
DX: Z13.9 Encounter for screening, unspecified (principal)
CPT/HCPCS: 52000; 81003; 88112

== ENCOUNTER 2024-12-10 13:28 | Outpatient (AMB) | payer OTHER, SELFPAY ==
--- NOTE | 2024-12-10 13:45 | A.OFFVIS_ITS ---
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 Home sleep study had reported nocturnal hypoxemia and recommended cardiac/pulmonary workup and hence he is referred. Patient himself denies any prior cardiac history. No history of any coronary disease or myocardial infarction or cardiomyopathy. Within limits of his activity, no clear cardiac symptoms. Otherwise, it seems that he has had a history of throat cancer and has received chemotherapy, radiation. [facility] Medical History Obstructive sleep apnea hypopnea, mild Nocturnal hypoxemia Chronic left shoulder pain Essential hypertension Fall (on)(from) sidewalk curb, initial encounter Impaired fasting glucose Nocturia Primary insomnia Muscle spasticity History of tongue cancer Dyslipidemia Acquired hypothyroidism Rhinitis, allergic Surgical History History of herniorrhaphy Hx of colonoscopy History of surgery History of umbilical hernia Family History Father Unknown family medical history Mother COPD (chronic obstructive pulmonary disease) Son Juvenile onset diabetes mellitus with hyperosmolar coma Social History Housing: House Alcohol intake: current Alcohol intake frequency: a few times a month Patient Tobacco Use Status: Former Tobacco user Years Smoked: 2 yrs e-Cigarette/Vaping Use: Never Used service: No Current occupational status: employed Cognitive needs: No Hearing needs: No Vision needs: Yes Review of Systems Const Denies weakness ENT Denies dizziness Card Denies chest pain with activity, Denies syncope, Denies rapid heart rate, Denies pedal edema, Denies edema, Denies leg edema, Denies lightheadedness, Denies palpitations, Denies dyspnea, Denies dyspnea on exertion and Denies orthopnea Resp Denies cough, Denies dyspnea and Denies dyspnea on exertion GI Denies hematochezia and Denies change in stool character Musc Denies abnormal gait, Denies muscle cramps, Denies muscle weakness, Denies numbness, Denies radiating pain into limb and Denies tingling Neuro Denies abnormal gait, Denies dizziness, Denies syncope, Denies numbness, Denies tingling and Denies weakness Endo Denies palpitations Physical Exam Vital Signs: Last Vital Signs Pulse 93 12/10/24 13:46 BP 110/60 12/10/24 13:46 BMI result Body Mass Index 34.5 Const General: comfortable and no acute distress Orientation/consciousness: patient oriented x3 HEENT Other: Unremarkable Head: Yes normal to inspection Neck Neck: Yes normal visual inspection Chest Chest palpation & inspection: normal inspection of the chest Resp Auscultation: clear to auscultation bilaterally Cardio Palpation: normal PMI Heart sounds: S1 normal heart sound present, S2 normal heart sound present, no gallops, no murmurs and no rubs GI Palpation (GI): Soft to palpation Back/Spine/Pelvis Other: unremarkable Skin General skin exam: no rashes or lesions noted Neuro General: patient oriented x3 Extrem General: Yes normal to inspection Psych Mental Status: mental status grossly normal Office Procedures EKG Details: EKG with underlying sinus rhythm at 93/Min; supraventricular ectopy; no ischemic findings; [place] [id number], Complete Assessment & Plan Assessment & Plan (1) Nocturnal hypoxemia: Comment: Seen on recent study with average O2 sat 91%, lowest O2 sat not 58% and O2 sat below 88% for 8 minutes. Rule out any cardiac disease or pulmonary disease. Code(s): G47.34 - Idiopathic sleep related nonobstructive alveolar hypoventilation Category: Medical (2) Obstructive sleep apnea hypopnea, mild: Comment: Seen on recent sleep study with conservative measures recommended especially weight reduction and position therapy Code(s): G47.33 - Obstructive sleep apnea (adult) (pediatric) Category: Medical (3) Essential hypertension: Code(s): I10 - Essential (primary) hypertension Category: Medical (4) Dyslipidemia: Code(s): E78.5 - Hyperlipidemia, unspecified Category: Medical Plan Per home sleep study, nocturnal hypoxemia noted and thought to be possibly from chronic pulmonary/cardiac issues. Clinically, he has got no cardiac history or symptoms. We will obtain an echocardiogram/stress test for further evaluation. If these are negative, then refer to Pulmonary. Orders: Orders CA echo transthoracic complete Today G47.34 - Idiopathic sleep related nonobstructive alveolar hypoventilation CA echo stress exercise Today G47.34 - Idiopathic sleep related nonobstructive alveolar hypoventilation, R07.2 - Precordial pain Coding Level of Care Code New Pt Level 4 (92411) Diagnoses Nocturnal hypoxemia G47.34 Obstructive sleep apnea hypopnea, mild G47.33 Essential hypertension I10 Dyslipidemia E78.5 CPT Codes EKG - CPT: 29008-Nrfvigxpmclyrofzu, Complete ([id number])
[2024-12-10 13:46] VITALS: BP 110/60; PULSE 93; BMI 34.5
--- OUTSIDE RECORDS SUMMARY | 2024-12-10 16:01 | XMS_ITS | Continuity of Care Document ---
Author Organization [facility] [place] [facility] Address [address] [place] [address] Assessment Encounter Date Assessment Date Assessment LastModified by Organization Details LastModified Time 09/10/2024 09/10/2024 Assessment: Pt with cont mild tight scalene, pec ms L vs R, improved L UQ ms extensibility s/p manual therapy. Plan: Cont with current Rx plan [email or web address] Not available 09/12/2024 00:13:26 Plan of Treatment Reminders Order Date Submit Date Provider Last Modified By Organization Details Last Modified Time Details Appointments None record ed. Lab None record ed. Referral None record ed. Procedures None record ed. Surgeries None record ed. Imaging None record ed. Medication Orders None record ed. Patient TargetsNo targets recorded. Patient InstructionsNo instructions recorded. Reason for Referral None Reported. Procedures Surgical History Date Name Laterality Status Provider Name and Address Organization Details Recorded Time 4 45961 Therapeutic Exercise (1:1) completed Efrain Vladimir, PT [address], [place], [address], [facility] 09/23/2024 23:08:46 4 57423: Hot or Cold Pack completed Efrain Vladimir, PT [address], [place], [address], [facility] 09/23/2024 23:08:46 4 00397: Manual therapy completed Efrain Vladimir, PT [address], [place], [address], [facility] 09/23/2024 23:08:46 4 27569 Therapeutic Exercise (1:1) completed Efrain Vladimir, PT [address], [place], [address], [facility] 09/19/2024 13:42:26 03332: Hot or Cold Pack completed Efrain Vladimir, PT [address], [place], [address], [facility] 09/19/2024 13:42:26 37318: Manual therapy completed Efrain Vladimir, PT [address], [place], [address], [facility] 09/19/2024 13:42:26 50821 Therapeutic Exercise (1:1) completed Efrain Vladimir, PT [address], [place], [address], [facility] 09/17/2024 23:27:07 96219: Hot or Cold Pack completed Efrain Vladimir, PT [address], [place], [address], [facility] 09/17/2024 01:17:58 67753: Manual therapy completed Efrain Vladimir, PT [address], [place], [address], [facility] 09/17/2024 23:27:04 52558 Therapeutic Exercise (1:1) completed Efrain Vladimir, PT [address], [place], [address], [facility] 09/16/2024 14:57:31 57959: Hot or Cold Pack completed Efrain Vladimir, PT [address], [place], [address], [facility] 09/16/2024 14:57:30 66282: Manual therapy completed Efrain Vladimir, PT [address], [place], [address], [facility] 09/16/2024 14:57:31 4 16867 Therapeutic Exercise (1:1) completed Efrain Vladimir, PT [address], [place], [address], [facility] 09/12/2024 00:08:08 4 66732: Hot or Cold Pack completed Efrain Vladmiir, PT [address], [place], [address], [facility] 09/12/2024 00:08:08 4 80297: Manual therapy completed Efrain Vladimir, PT [address], [place], [address], [facility] 09/12/2024 00:08:08 03481 Therapeutic Exercise (1:1) completed Efrain Vladimir, PT [address], [place], [address], [facility] 09/03/2024 00:04:36 4 87395: Hot or Cold Pack completed Efrain Vladimir, PT [address], [place], [address], [facility] 09/03/2024 00:04:01 4 04791: Manual therapy completed Efrain Vladimir, PT [address], [place], [address], [facility] 09/03/2024 00:04:32 75423 Therapeutic Exercise (1:1) completed Efrain Vladimir, PT [address], [place], [address], [facility] 08/31/2024 22:38:46 31633: Manual therapy completed Efrain Vladimir, PT [address], [place], [address], [facility] 08/31/2024 22:38:46 4 49344 Therapeutic Exercise (1:1) completed Efrain Vladimir, PT [address], [place], [address], [facility] 08/29/2024 01:19:52 4 05853: Manual therapy completed Efrain Vladimir, PT [address], [place], [address], [facility] 08/29/2024 01:19:52 4 50706 Therapeutic Exercise (1:1) completed Efrain Vladimir, PT [address], [place], [address], [facility] 08/24/2024 22:14:27 4 42079: Manual therapy completed Efrain Vladimir, PT [address], [place], [address], [facility] 08/24/2024 22:14:39 4 44622 Therapeutic Exercise (1:1) completed Efrain Vladimir, PT [address], [place], [address], [facility] 08/19/2024 12:27:21 4 21662: Low complexity PT Eval completed Efrian Vladimir, PT [address], [place], [address], [facility] 08/19/2024 12:27:27 Imaging Results None recorded. Procedure Notes None recorded. Medical Equipment None Reported. Vitals None Recorded Social History None recorded. Functional Status None recorded. Mental Status None recorded. Family History Nothing Reported. Medical History No medical history recorded. Past Encounters Encounter ID Performer Location Encounter Start Date Encounter Closed Date Diagnosis/Indication Diagnosis SNOMED-CT Code Diagnosis ICD10 Code Diagnosis Note [id number] Efrain Lvadimir, PT [facility] [address] [place] [address] 08/18/2024 14:15:38 08/18/2024 16:10:13 Cervical radiculopathy 41746809 M54.12 [id number] Efrain Rivaso, PT [facility] [address] [place] [address] 08/22/2024 14:08:03 08/22/2024 15:45:08 Cervical radiculopathy 76033106 M54.12 [id number] Efrain Gilbert, PT [facility] [address] [place] [address] 08/27/2024 14:16:05 08/27/2024 15:26:24 Cervical radiculopathy 37309483 M54.12 [id number] Efrain Rivaso, PT [facility] [address] [place] [address] 08/29/2024 14:02:19 08/29/2024 15:48:11 Cervical radiculopathy [id number] M54.12 [id number] Efrain Rivaso, PT [facility] [address] [place] [address] 09/01/2024 13:35:22 09/01/2024 15:20:21 Cervical radiculopathy 57060871 M54.12 [id number] Efrain Rivaso, PT [facility] [address] [place] [address] 09/10/2024 13:56:10 09/10/2024 15:30:52 Cervical radiculopathy 69325091 M54.12 Health Concerns Section Related Observation LastModified by Organization Detai ls LastModified Time None Recorded Concern Status LastModified by Organization Details LastModified Time None Recorded Payers Encounter Date Sequence Insurance Name Policy Number Policy Teixeira Covered Member ID Teixeira Member ID Guarantor Name 09/10/2024 1 [facility] [place] [id number] Jose J Portillo [id number] Jose J Portillo Notes Date Note Type Note Provider Name and Address Organization Details Recorded Time 09/10/2024 text/html Pt states cont decreased L hand numbness, and decreased intensity L thumb numbness. Efrain Gilbert, PT [address], [place], [address], [facility] 09/12/2024 00:13:52 09/12/2024 text/html Pt states he was doing some small electrical work (replacing outlets) at home and felt a little more numbness L thumb afterwards. Efrain Gilbert, PT [address], [place], [address], [facility] 09/17/2024 23:33:36
== END 2024-12-10 14:10 | disposition home or self-care (01) ==
PROVIDERS: PCP Internal Medicine; Visit Provider Internal Medicine
DX: G47.34 Idiopathic sleep related nonobstructive alveolar hypoventilation (principal); G47.33 Obstructive sleep apnea (adult) (pediatric); I10 Essential (primary) hypertension; E78.5 Hyperlipidemia, unspecified
CPT/HCPCS: 93010; 99204

== ENCOUNTER → 2024-12-10 13:28 | Outpatient (BNVA) | payer OTHER, SELFPAY | PROVIDERS: PCP Internal Medicine; Visit Provider Internal Medicine | DX: G47.34 Idiopathic sleep related nonobstructive alveolar hypoventilation (principal); G47.33 Obstructive sleep apnea (adult) (pediatric); I10 Essential (primary) hypertension; E78.5 Hyperlipidemia, unspecified | CPT/HCPCS: 93005 ==

== ENCOUNTER → 2024-12-25 12:31 | Outpatient (REF) | payer OTHER, SELFPAY ==
--- NOTE | 2024-12-25 12:34 | CA_ITS ---
Transthoracic Echocardiogram Patient (Last, First, Middle): Jose J Portillo, Gender: Male Date of : 1970 Age: 54 Procedure Date: 12/25/2024 Procedure Type: Transthoracic Echocardiogram Location: OP Height: 177.8 cm Weight: 111.13 kg BSA: 2.28 m2 Heart Rate: 71 bpm BP: 110 / 64 mmHg Business Director: TO Referring MD: Adeel Tapia MD Symptoms: G47.34 - Idiopathic sleep related nonobstructive alveolar hypoventilation Study Quality: Adequate w contrast ECG Rhythm: Sinus Conclusions: - The left ventricular systolic function is normal. The calculated ejection fraction is 58% by biplane method. - No obvious valvular pathology seen on this study. - There is mild dilatation of the sinuses of Valsalva measuring 4.35 cm and mild dilatation of the ascending aorta measuring 4.00 cm. Findings Procedure Information Contrast agent, definity, is being given per protocol without apparent complications. Left Ventricle Normal left ventricular cavity size. The left ventricular systolic function is normal. The calculated ejection fraction is 58% by biplane method. There is no evidence of regional wall motion abnormalities. Diastolic function is normal for age. There is mild septal asymmetric hypertrophy. Right Ventricle Mildly increased right ventricular cavity size. There is normal right ventricular systolic function. Atria Both atria are normal in size. Aortic Valve There is a normal trileaflet aortic valve. There is no aortic valve stenosis. Trace to mild aortic regurgitation. Mitral Valve The mitral valve appears normal. There is no mitral valve regurgitation. There is no mitral valve stenosis. Pulmonic Valve There is trace pulmonic valve regurgitation. Tricuspid Valve There is trace tricuspid valve regurgitation. There is no evidence of pulmonary hypertension. Great Vessels The aortic arch is normal in size. There is mild dilatation of the sinuses of Valsalva measuring 4.35 cm and mild dilatation of the ascending aorta measuring 4.00 cm. Venous The inferior vena cava is normal in size and collapses greater than 50% with inspiration. Pericardium/Pleural There is no evidence of pericardial effusion. Prior Study Comparison No prior study available for comparison. Recommendations, Care & Conclusions No obvious valvular pathology seen on this study. Measurements 2D Linear Measurements IVSd: 1.13 0.6-0.9/0.6-1.0 cm LVIDd: 4.82 3.9-5.3/4.2-5.9 cm LVIDd Index: 2.11 2.4-3.2/2.2-3.1 cm/m2 LVIDs: 3.32 2.0-3.6 cm LVPWd: 0.84 0.7-1.1 cm LA Diam: 3.30 2.7-3.8/3.0-4.0 cm LAIDs Index: 1.45 1.5-2.3 cm/m2 LV Mass: 208.97 67-162/88-224 g LV Mass Index: 91.65 43-95/49-115 g/m2 LVOT Diam: 2.60 3.0+(-)1.3 cm 2D Systolic Function EF 4C: 57.20 >55% EF 2C: 59.70 >55% EF BiP: 58.30 >55% Mitral Valve MV Pk E: 0.55 MV PK A: 0.42 MV Decel Time: 292.00 E/A: 1.30 E'Lateral: 6.64 E'Medial: 5.00 E/E' Med: 11.10 E/E' Lat: 8.30 PHT: 86.00 MVA PHT: 2.56 Decel [place]: 1.89 Aortic Valve AoV Pk Jules: 1.23 AoV Mn Jules: 0.82 AoV VTI: 0.22 AoV Pk Grad: 6.00 Aov Mn Grad: 3.00 PAMELA Cont.VTI: 4.45 LVOT LVOT Pk Jules: 0.93 LVOT Mn Jules: 0.57 LVOT VTI: 0.18 LVOT Pk Grad: 3.00 LVOT Mn Grad: 2.00 LVOT Diam: 2.60 LVOT Area: 5.31 Diastolic Function MV Pk E: 0.55 MV Pk A: 0.42 E/A: 1.30 E'Medial: 5.00 E/E' Med: 11.10 E' Laterial: 6.64 E/E' Lat: 8.30 Right Ventricle TAPSE (mm): 26.40 TVS' Jules: 10.00 Tricuspid Valve RA Press: 3.00 Great Vessels Aorta Sinus of Valsalva: 4.35 2.0-3.[address] Ridge: 3.90 1.7-3.4 cm Ao Asc: 4.00 2.1-3.4 cm Ao Arch: 3.10 Updated in Other Vendor System with Status of Final Adeel Tapia MD electronically signed on 12/27/2024 11:22:11 AM with status of Final
--- OUTSIDE RECORDS SUMMARY | 2024-12-25 16:21 | XMS_ITS | Encounter Summary ---
Author Organization [facility] Address [address] [place] [address] Care Team Providers Care Track Superintendent Name Role Phone Tamela Martinez MD Primary Care Provider [phone] Yokasta Rooney Md, MD Primary Care Provider Unavailable Encounter Details Date Type Department Care Team Description 05/12/2021 Suction Worker Report Medical Records [address] [place] [id number] Judd Lyon MD Social History Tobacco Use Types Packs/Day Years Used Date Smoking Tobacco: Former Smokeless Tobacco: Never Alcohol Use Standard Drinks/Week Comments Yes 0 (1 standard drink = 0.6 oz pur e alcohol) socially Sex Assigned at Date Recorded Not on file documented as of this encounter Plan of Treatment Not on file documented as of this encounter Visit Diagnoses Not on filedocumented in this encounter Care Teams Track Superintendent Relationship Specialty Start Date End Date Tamela Martinez MD [address] [place] [address] PCP - General Internal Medicine 01/25/17 02/22/23 Yokasta Rooney MD, MD [address] [place] [address] PCP - General Internal Medicine 02/23/23 documented as of this encounter
--- OUTSIDE RECORDS SUMMARY | 2024-12-25 16:21 | XMS_ITS | Encounter Summary ---
Author Organization [facility] Address [address] [place] [address] Care Team Providers Care Professor Of Architecture Name Role Phone Tamela Martinez MD Primary Care Provider [phone] Yokasta Rooney Md, MD Primary Care Provider Unavailable Encounter Details Date Type Department Care Team Description 12/26/2017 Contract Clerk Report Medical Records [address] [place] [id number] Carrie Radford MD Social History Tobacco Use Types Packs/Day Years Used Date Smoking Tobacco: Former Alcohol Use Standard Drinks/Week Comments Yes 0 (1 standard drink = 0.6 oz pur e alcohol) socially Sex Assigned at Date Recorded Not on file documented as of this encounter Plan of Treatment Not on file documented as of this encounter Visit Diagnoses Not on filedocumented in this encounter Care Teams Professor Of Architecture Relationship Specialty Start Date End Date Tamela Martinez MD [address] [place] [address] PCP - General Internal Medicine 01/25/17 02/22/23 Yokasta Rooney MD, MD [address] [place], [place] PCP - General Internal Medicine 02/23/23 documented as of this encounter
--- OUTSIDE RECORDS SUMMARY | 2024-12-25 16:21 | XMS_ITS | Encounter Summary ---
Author Organization [facility] Address [address] [place] [address] Care Team Providers Care Alodize Machine Helper Name Role Phone Tamela Martinez MD Primary Care Provider [phone] Yokasta Rooney Md, MD Primary Care Provider Unavailable Encounter Details Date Type Department Care Team Description 10/08/2018 Geriatric Nurse Practitioner Report Medical Records [address] [place] [address] Carrie Radford MD Social History Tobacco Use [...] on filedocumented in this encounter Care Teams Alodize Machine Helper Relationship Specialty Start Date End Date Tamela Martinez MD [address] [place] [address] PCP - General Internal Medicine 01/25/17 02/22/23 Yokasta Rooney MD, MD [address], [place] PCP - General Internal Medicine 02/23/23 documented as of this encounter
--- OUTSIDE RECORDS SUMMARY | 2024-12-25 16:21 | XMS_ITS | Encounter Summary ---
Author Organization [facility] Address [address] [place] [address] Care Team Providers Care Bullet Slugs Inspector Name Role Phone Yokasta Rooney Md, MD Primary Care Provider Unavailable Encounter Details Date Type Department Care Team Description 01/07/2024 Orders Only Medical Records [address] [place] [address] Tonya Casas MD [address] [place] [address] Social History Tobacco Use Types Packs/Day Years Used Date Smoking Tobacco: Former Smokeless Tobacco: Never Alcohol Use Standard Drinks/Week Comments Yes 0 (1 standard drink = 0.6 oz pur e alcohol) socially Sex Assigned at Date Recorded Not on file documented as of this encounter Progress Notes * Chayo Casas MD - 01/07/2024 7:20 PM EST Dear Jose J, The polyp(s) that were removed during your colonoscopy were precancerous, but benign. Fortunately, we removed them and therefore, they will not cause any more problems in the future. Based on the number, the size, and the features of the polyp(s) removed, I recommend a follow-up colonoscopy in 5 years. Before, the 5 years are due, we will send you a reminder in the mail asking you to contact our office to have the colonoscopy scheduled. I would like to personally thank you for allowing us to take care of you. Please don't hesitate to call us for any questions or concerns. Regards, Federico Casas MD Board Certified Gastroenterology and Internal Medicine Transplant Hepatology [facility] documented in this encounter Plan of Treatment Not on file documented as of this encounter Procedures Procedure Name Priority Date/Time Associated Diagnosis Comments OUTSIDE PATHOLOGY Routine 12/31/2023 documented in this encounter Results * OUTSIDE PATHOLOGY (12/31/2023) H Bib Casas MD OUTSIDE LAB documented in this encounter Visit Diagnoses Not on filedocumented in this encounter Care Teams Bullet Slugs Inspector Relationship Specialty Start Date End Date Yokasta Rooney MD, MD PCP - General Internal Medicine 02/23/23 documented as of this encounter
--- OUTSIDE RECORDS SUMMARY | 2024-12-25 16:21 | XMS_ITS | Encounter Summary ---
Author Organization [facility] Address [address] [place] [address] Care Team Providers Care Animal Stunner Name Role Phone Tamela Martinez MD Primary Care Provider [phone] [phone] Yokasta Rooney Md, MD Primary Care Provider Unavailable Encounter Details Date Type Department Care Team Description 08/13/2020 Telephone Gastroenterology - [address] [place] [address] Tonya Casas MD [address] [place] [address] Social History Tobacco Use Types Packs/Day Years Used Date Smoking Tobacco: Former Smokeless Tobacco: Never Alcohol Use Standard Drinks/Week Comments Yes 0 (1 standard drink = 0.6 oz pur e alcohol) socially Sex Assigned at Date Recorded Not on file COVID-19 Exposure Response Date Recorded In the last month, have you been in contact with someone who was confirmed or suspected to have Coronavirus / COVID-19? No / Unsure 08/13/2020 8:53 AM EDT documented as of this encounter Miscellaneous Notes * Telephone Encounter - Bryan Horne - 08/13/2020 1:26 PM EDT Pre-auth needed Patient is scheduled for a colonoscopy on 09/07/20 8am Diagnosis Screening Colonoscopy Patients insurance: [facility] Appointment is with Federico Casas MD Code to process pre-auth for: [id number] Location of procedure: [facility] documented in this encounter Plan of Treatment Not on file documented as of this encounter Visit Diagnoses Not on filedocumented in this encounter Care Teams Animal Stunner Relationship Specialty Start Date End Date Tamela Martinez MD [address] [place] [address] PCP - General Internal Medicine 01/25/17 02/22/23 Yokasta Rooney MD, [address] [place] [address] PCP - General Internal Medicine 02/23/23 documented as of this encounter
--- OUTSIDE RECORDS SUMMARY | 2024-12-25 16:21 | XMS_ITS | Encounter Summary ---
Author Organization [facility] Address [address] [place] [address] Care Team Providers Care Winder Operator Name Role Phone Tamela Martinez MD Primary Care Provider [phone] [phone] Yokasta Rooney Md, MD Primary Care Provider Unavailable Encounter Details Date Type Department Care Team Description 08/15/2017 Repairer Resistance Welding Machines Report Medical Records [address] [place] [id number] Jose J Bowers Social History Tobacco Use Types Packs/Day Years Used Date Smoking Tobacco: Former Alcohol Use Standard Drinks/Week Comments Yes 0 (1 standard drink = 0.6 oz pur e alcohol) socially Sex Assigned at Date Recorded Not on file documented as of this encounter Plan of Treatment Not on file documented as of this encounter Visit Diagnoses Not on filedocumented in this encounter Care Teams Winder Operator Relationship Specialty Start Date End Date Tamela Martinez MD [address] [place] [address] PCP - General Internal Medicine 01/25/17 02/22/23 Yokasta Rooney MD, [address] [place], [place] PCP - General Internal Medicine 02/23/23 documented as of this encounter
--- OUTSIDE RECORDS SUMMARY | 2024-12-25 16:21 | XMS_ITS | Clinical Summary ---
Author Organization [facility] Address [address] [place] [address] Care Team Providers Care Superintendent Warehouse Name Role Phone Yokasta Rooney Md, MD Primary Care Provider Unavailable Allergies No known active allergies Medications Medication Sig Dispensed Refills Start Date End Date Status famotidine (PEPCID) 40 MG tablet Take 40 mg by mouth daily. 0 Active Zolpidem Tartrate 5 MG Tab Take by mouth at bedtime as needed. 0 Active levothyroxine (SYNTHROID, LEVOTHROID) 175 MCG tablet Take 1 Tab by mouth daily. 30 Tab 5 03/10/2020 Active atorvastatin (LIPITOR) 80 MG tablet Take 80 mg by mouth daily. 0 Active ASPIRIN LOW DOSE OR Take by mouth. 0 A ctive bisacodyl (DULCOLAX) 5 MG EC tablet Take 1 Tab by mouth Once. Take 4 tabs by mouth at the same time you start the first dose of bowel prep 4 Tab 0 08/13/2020 Active polyethylene glycol (GOLYTELY) 236 g suspension Take 4 L by mouth once for 1 dose. Per office instructions, drink one glass by mouth every 15 minutes until half the gallon is gone. Start second half at instructed time, drinking one glass by mouth every 15 minutes until gone 4000 mL 0 08/13/2020 Active bisacodyl (DULCOLAX) 5 MG EC tablet Take 2 tablets by mouth right before your first dose of liquid prep. 2 Tablet 0 12/17/2023 Active polyethylene glycol (GoLYTELY,NuLYTELY) 236 g suspension Take 4 L by mouth once for 1 dose. (May substitute any PEG) Mix prep according to directions. Drink one 8oz glass at your own pace until half the gallon is completed. Rest and then finish the second half, one 8oz glass at your own pace until gallon is complete. Follow directions given by office for timing. 4000 mL 0 12/17/2023 Active Active Problems Problem Noted Date JOHNNY (obstructive sleep apnea) 03/02/2017 Overview: Claustrophobic-not using CPAP/mask History of concussion 03/02/2017 Overview: 01/06/15 [address] LOC. [facility] Lymphedema of face 02/07/2017 History of tongue cancer Hypercholesterolemia GERD (gastroesophageal reflux disease) Insomnia Immunizations Name Administration Dates Next Due Influenza (> 6 Months) 11/08/2015 Tdap 09/30/2010 Family History Medical History Relation Name Comments unknown [Other] Father no contact COPD Mother Relation Name Status Comments Brother Alive Father Maternal Grandfather Maternal Grandmother Alive alzheim ers Mother Alive Paternal Grandfather Paternal Grandmother Son (Age 15) Type 1 kwadwo betes Social History Tobacco Use Types Packs/Day Years Used Date Smoking Tobacco: Former Smokeless Tobacco: Never Alcohol Use Standard Drinks/Week Comments Yes 0 (1 standard drink = 0.6 oz pur e alcohol) socially Sex Assigned at Date Recorded Not on file Last Filed Vital Signs Vital Sign Reading Time Taken Comments Blood Pressure 110/86 08/13/2020 9:07 AM EDT c Pulse 73 08/13/2020 9:07 AM EDT Temperature 37.1 ??C (98.8 ??F) 08/13/2020 9:07 AM ED T Respiratory Rate 18 11/13/2019 2:40 PM EST Oxygen Saturation 98% 08/13/2020 9:07 AM EDT Inhaled Oxygen Concentration - - Weight 116.1 kg (256 lb) 08/13/2020 9:07 AM EDT Height 177.8 cm (5' 10 ) 08/13/2020 9:07 AM EDT Body Mass Index 36.73 08/13/2020 9:07 AM EDT Plan of Treatment Health Maintenance Due Date Last Done Comments Covid-19 Vaccine (#1) 02/08/1971 HEPATITIS C SCREENING 1987 SHINGLES VACCINE (1 of 2) 2019 DTAP/TDAP/TD (2 - Td or Tdap) 09/30/2020 09/30/2010 BASELINE HEALTH EXAM 40-64 08/13/202208/13, 08/13/2020, 08/12/2019, Additional history exists INFLUENZA (#1) 2024 2019 (Refu sed), 11/08/2015 BMI CHECK/ADVISE 11/26/2024 08/13/2020, , 2019, Additional history exists CHOLESTEROL SCREENING 08/13/2025 08/13/2020 , 08/12/2019, 06/14/2018, Additional history exists COLON CANCER SCREENING 12/31/2028 12/31/2023, 2019 PNEUMOCOCCAL VACCINE FOR HIG H RISK PATIENTS (#1) 2034 Care Teams Superintendent Warehouse Relationship Specialty Start Date End Date Yokasta Rooney MD, MD PCP - General Internal Medicine 02/23/23
--- OUTSIDE RECORDS SUMMARY | 2024-12-25 16:21 | XMS_ITS | Data Portability ---
Author Organization [place] - [facility], [facility] Address [address] [place] [address] Assessment Encounter Date Assessment Date Assessment LastModified by Organization Details LastModified Time 09/12/2024 09/12/2024 Assessment: Pt with improving Bi c/s rot ROM, today with subj decrease L c/s pain at end ranges. Plan: Cont with current Rx plan Not available 09/16/2024 15:04:53 09/15/2024 09/15/2024 Assessment: Pt with primary c/s ROM limitation R SB secondary to scalene ms tightness, good equal Bi c/s rot (terminal end range discomfort). Cont thumb numbness sx's from aggravation 2 days ago. Plan: Cont with current Rx plan Not available 09/17/2024 23:26:21 09/19/2024 09/19/2024 Assessment: Pt cont with L> R c/s ms tightness, (though approx 50% improvement in extensibility vs eval date) Plan: Cont with current Rx plan Not available 09/23/2024 11:56:36 09/22/2024 09/22/2024 Assessment: Pt cont with L> R c/s ms tightness, (though approx 50% improvement in extensibility vs eval date) Plan: Cont with current Rx plan Not available 09/23/2024 23:08:46 09/24/2024 09/24/2024 Assessment: Pt though improvement noted since eval, cont with L> R c/s ms tightness, Plan: Pt to cont on own with Ind HEP. Not available 09/28/2024 22:37:34 Plan of Treatment Reminders Order Date Submit [...] Name and Address Organization Details Recorded Time 84977 Therapeutic Exercise (1:1) completed Efrain Vladimir, PT [address], [place], [address], [facility] 09/23/2024 23:08:46 20273: Hot or Cold Pack completed Efrain Vladimir, PT [address], [place], [address], [facility] 09/23/2024 23:08:46 67317: Manual therapy completed Efrain Vladimir, PT [address], [place], [address], [facility] 09/23/2024 23:08:46 08077 Therapeutic Exercise (1:1) completed Efrain Vladimir, PT [address], [place], [address], [facility] 09/19/2024 13:42:26 46641: Hot or Cold Pack completed Efrain Vladimir, PT [address], [place], [address], [facility] 09/19/2024 13:42:26 13899: Manual therapy completed Efrain Vladimir, PT [address], [place], [address], [facility] 09/19/2024 13:42:26 42529 Therapeutic Exercise (1:1) completed Efrain Vladimir, PT [address], [place], [address], [facility] 09/17/2024 23:27:07 10/21/202 4 01191: Hot or Cold Pack completed Efrain Vladimir, PT [address], [place], [address], [facility] 09/17/2024 01:17:58 4 09824: Manual therapy completed Efrain Vladimir, PT [address], [place], [address], [facility] 09/17/2024 23:27:04 4 34151 Therapeutic Exercise (1:1) completed Efrain Vladimir, PT [address], [place], [address], [facility] 09/16/2024 14:57:31 4 09342: Hot or Cold Pack completed Efrain Vladimir, PT [address], [place], [address], [facility] 09/16/2024 14:57:30 4 84775: Manual therapy completed Efrain Vladimir, PT [address], [place], [address], [facility] 09/16/2024 14:57:31 76326 Therapeutic Exercise (1:1) completed Efrain Vladimir, PT [address], [place], [address], [facility] 09/12/2024 00:08:08 4 28729: Hot or Cold Pack completed Efrain Vladimir, PT [address], [place], [address], [facility] 09/12/2024 00:08:08 76743: Manual therapy completed Efrain Vladimir, PT [address], [place], [address], [facility] 09/12/2024 00:08:08 28290 Therapeutic Exercise (1:1) completed Efrain Vladimir, PT [address], [place], [address], [facility] 09/03/2024 00:04:36 4 93292: Hot or Cold Pack completed Efrain Vladimir, PT [address], [place], [address], [facility] 09/03/2024 00:04:01 4 64397: Manual therapy completed Efrain Vladimir, PT [address], [place], [address], [facility] 09/03/2024 00:04:32 4 24919 Therapeutic Exercise (1:1) completed Efrain Vladimir, PT [address], [place], [address], [facility] 08/31/2024 22:38:46 4 00310: Manual therapy completed Efrain Vladimir, PT [address], [place], [address], [facility] 08/31/2024 22:38:46 4 13531 Therapeutic Exercise (1:1) completed Efrain Vladimir, PT [address], [place], [address], [facility] 08/29/2024 01:19:52 4 93340: Manual therapy completed Efrain Vladimir, PT [address], [place], [address], [facility] 08/29/2024 01:19:52 4 33008 Therapeutic Exercise (1:1) completed Efrain Vldaimir, PT [address], [place], [address], [facility] 08/24/2024 22:14:27 4 62622: Manual therapy completed Efrain Vladimir, PT [address], [place], [address], [facility] 08/24/2024 22:14:39 4 89771 Therapeutic Exercise (1:1) completed Efrain Vladimir, PT [address], [place], [address], [facility] 08/19/2024 12:27:21 4 82961: Low complexity PT Eval completed Efrain Vladimir, PT [address], [place], [address], [facility] 08/19/2024 12:27:27 Imaging Results None recorded. Procedure Notes None recorded. Medical Equipment None Reported. Vitals None Recorded Social History None recorded. Functional Status None recorded. Mental Status None recorded. Family History Nothing Reported. Medical History No medical history recorded. Past Encounters Encounter ID Performer Location Encounter Start Date Encounter Closed Date Diagnosis/Indication Diagnosis SNOMED-CT Code Diagnosis ICD10 Code Diagnosis Note [id number] Efrain Vladimir, PT [facility] [address] [place] [address] 08/18/2024 14:15:38 08/18/2024 16:10:13 Cervical radiculopathy 47728806 M54.12 [id number] Efrain Vladimir, PT [facility] [address] [place] [address] 08/22/2024 14:08:03 08/22/2024 15:45:08 Cervical radiculopathy 53567852 M54.12 [id number] Efrain Rivaso, PT [facility] [address] [place] [address] 08/27/2024 14:16:05 08/27/2024 15:26:24 Cervical radiculopathy 25434632 M54.12 [id number] Efrain Vladimir, PT [facility] [address] [place] [address] 08/29/2024 14:02:19 08/29/2024 15:48:11 Cervical radiculopathy 98642383 M54.12 [id number] Efrain Lealonso, PT [facility] [address] [place] [address] 09/01/2024 13:35:22 09/01/2024 15:20:21 Cervical radiculopathy 35116737 M54.12 [id number] Efrain Vladimir, PT [facility] [address] [place] [address] 09/10/2024 13:56:10 09/10/2024 15:30:52 Cervical radiculopathy 81586928 M54.12 [id number] Efrain Vladimir, PT [facility] [address] [place] [address] 09/12/2024 13:58:24 09/12/2024 15:52:30 Cervical radiculopathy 28006201 M54.12 [id number] Efrain Vladimir, PT [facility] [address] [place] [address] 09/15/2024 14:23:29 09/15/2024 15:26:44 Cervical radiculopathy 78021625 M54.12 [id number] Efrain Rivaso, PT [facility] [address] [place] [address] 09/19/2024 13:25:22 09/19/2024 15:11:19 Cervical radiculopathy 20468523 M54.12 [id number] Efrain Rivaso, PT [facility] [address] [place] [address] 09/22/2024 14:01:11 09/22/2024 15:48:27 Cervical radiculopathy 88070585 M54.12 [id number] Efrain Rivaso, PT [facility] [address] [place] [address] 09/24/2024 14:04:43 09/24/2024 15:11:42 Cervical radiculopathy 43294963 M54.12 Health Concerns Section Related Observation LastModified by Organization Detai ls LastModified Time None Recorded Concern Status LastModified by Organization Details LastModified Time None Recorded Advance Directives Directive None Recorded Payers Encounter Date Sequence Insurance Name Policy Number Policy Teixeira Covered Member ID Teixeira Member ID Guarantor Name 09/12/2024 1 [facility] [id number] Jose J Portillo [id number] Jose J Portillo 09/15/2024 1 [facility] [id number] Jose J Portillo [id number] Jose J Portillo 09/19/2024 1 [facility] [id number] Jose J Leale [id number] Jose J Marion 09/22/2024 1 [facility] [id number] Hernando Marion [id number] Jose J Marion 09/24/2024 1 [facility] [id number] Jose J [place] Marion [id number] Jose J Marion Notes Date Note Type Note Provider Name and Address Organization Details Recorded Time 09/12/2024 text/html Pt states he was doing some small electrical work (replacing outlets) at home and felt a little more numbness L thumb afterwards. Efrain Gilbert, PT [address], [place], [address], [facility] 09/17/2024 23:33:36 09/15/2024 text/html Pt states he was doing some small electrical work (replacing outlets) at home and felt a little more numbness L thumb afterwards. Efrain Gilbert, PT [address], [place], [address], [facility] 09/17/2024 23:27:35 09/19/2024 text/html Pt states feelin g a little better with L thumb numbness but still present, neck feels stiff on L. Efrain Gilbert PT [address], [place], [address], [facility] 09/23/2024 11:56:52 09/22/2024 text/html Pt states overal l L neck feeling better but still stiff feeling tight vs R. Efrain Gilbert PT [address], [place], [address], [facility] 09/23/2024 23:12:39 09/24/2024 text/html Pt states L neck feeling stiff today but overall less pain, pt states 2nd-4th digits not getting numb, however thumb still getting numb. Efrain Gilbert, PT [address], [place], [address], [facility] 09/28/2024 22:40:24
--- OUTSIDE RECORDS SUMMARY | 2024-12-25 16:21 | XMS_ITS | Encounter Summary ---
Author Organization [facility] Address [address] [place] [address] Care Team Providers Care Conventional Mortgage Underwriter Name Role Phone Tamela Martinez MD Primary Care Provider [phone] Yokasta Rooney Md, MD Primary Care Provider Unavailable Encounter Details Date Type Department Care Team Description 02/07/2019 Tobacco Baler Report Medical Records [address] [place] [address] Carrie Radford MD Social History Tobacco Use [...] on filedocumented in this encounter Care Teams Conventional Mortgage Underwriter Relationship Specialty Start Date End Date Tamela Martinez MD [address] [place] [address] PCP - General Internal Medicine 01/25/17 02/22/23 Yokasta Rooney MD, MD [address], [place] PCP - General Internal Medicine 02/23/23 documented as of this encounter
--- OUTSIDE RECORDS SUMMARY | 2024-12-25 16:21 | XMS_ITS | Encounter Summary ---
Author Organization [facility] Address [address] [place] [address] Care Team Providers Care Car Mover Name Role Phone Tamela Martinez MD Primary Care Provider [phone] Yokasta Rooney Md, MD Primary Care Provider Unavailable Reason for Visit * Reason Comments E-prescribe Rx Request Encounter Details Date Type Department Care Team Description 11/05/2018 Refill Adult Medicine - [place] [address] [place] [address] Tamela Martinez, [address] [place] [address] E-prescribe Rx Request Social History Tobacco Use Types Packs/Day Years Used Date Smoking Tobacco: Former Alcohol Use Standard Drinks/Week Comments Yes 0 (1 standard drink = 0.6 oz pur e alcohol) socially Sex Assigned at Date Recorded Not on file documented as of this encounter Miscellaneous Notes * Telephone Encounter - Kristi Ruiz - 11/05/2018 9:42 AM EST LMOM for patient to call and make an appt * Telephone Encounter - Desirae Richey M.A. - 11/05/2018 9:[address] Overdue for follow up appt * Telephone Encounter - Kristi Ruiz - 11/05/2018 7:50 AM EST Patient would like script to be: E-PRESCRIBED/FAXED TO PHARMACY WHEN WAS THE PATIENT'S LAST APPOINTMENT IN ADULT MEDICINE? 02/07/2017 WHEN WAS THE LAST TIME THE PATIENT SAW THEIR PCP? NA Does patient have an upcoming appointment? No-patient refused appointment, will call back to book appointment (THE MEDICATION REQUESTED IS ON THE MED LIST ABOVE) All of the medications requested were on the CURRENT MEDS list Did you check the Pharmacy information above?: YES Patient wants: 30 -day supply Is this a mail order prescription request ? NO If the refill is from a FAXED refill request what is the RX # listed on the fax? N/A Patients current insurance carrier is: Payor: [employer] / Plan: PPO $15 [id number] / Product Type: PPO [id number] documented in this encounter Plan of Treatment Not on file documented as of this encounter Visit Diagnoses Not on filedocumented in this encounter Care Teams Car Mover Relationship Specialty Start Date End Date Tamela Martinez MD [address] [place] [address] PCP - General Internal Medicine 01/25/17 02/22/23 Yokasta Rooney MD, [address] [place] [address] PCP - General Internal Medicine 02/23/23 documented as of this encounter
--- OUTSIDE RECORDS SUMMARY | 2024-12-25 16:21 | XMS_ITS | Encounter Summary ---
Author Organization [facility] Address [address] [place] [address] Care Team Providers Care Seismometer Operator Name Role Phone Tamela Martinez MD Primary Care Provider [phone] Yokasta Rooney Md, MD Primary Care Provider Unavailable Encounter Details Date Type Department Care Team Description 07/02/2018 Power Plant Superintendent Report Medical Records [address] [place] [address] Carrie Radford MD Social History Tobacco Use [...] on filedocumented in this encounter Care Teams Seismometer Operator Relationship Specialty Start Date End Date Tamela Martinez MD [address] [place] [address] PCP - General Internal Medicine 01/25/17 02/22/23 Yokasta Rooney MD, MD [address] [place], [place] PCP - General Internal Medicine 02/23/23 documented as of this encounter
--- OUTSIDE RECORDS SUMMARY | 2024-12-25 16:21 | XMS_ITS | Encounter Summary ---
Author Organization [facility] Address [address] [place] [address] Care Team Providers Care Machine Wiper Name Role Phone Tamela Martinez MD Primary Care Provider [phone] Yokasta Rooney Md, MD Primary Care Provider Unavailable Encounter Details Date Type Department Care Team Description 04/02/2017 Web Marketing Strategist Report Medical Records [address] [place] [address] Carrie Radford MD Social History Tobacco Use [...] on filedocumented in this encounter Care Teams Machine Wiper Relationship Specialty Start Date End Date Tamela Martinez MD [address] [place] [address] PCP - General Internal Medicine 01/25/17 02/22/23 Yokasta Rooney MD, MD [address], [place] PCP - General Internal Medicine 02/23/23 documented as of this encounter
--- OUTSIDE RECORDS SUMMARY | 2024-12-25 16:21 | XMS_ITS | Encounter Summary ---
Author Organization [facility] Address [address] [place] [address] Care Team Providers Care Fabricator Foam Rubber Name Role Phone Yokasta Rooney Md, MD Primary Care Provider Unavailable Encounter Details Date Type Department Care Team Description 01/02/2024 Orders Only Medical Records [address] [place] [address] Tonya Casas MD [address] [place] [address] Social History Tobacco Use Types Packs/Day Years [...] Name Priority Date/Time Associated Diagnosis Comments OUTSIDE COLONOSCOPY Routine 12/31/2023 documented in this encounter Results * OUTSIDE COLONOSCOPY (12/31/2023) Tonya Casas MD RADIOLOGY documented in this encounter Visit Diagnoses Not on filedocumented in this encounter Care Teams Fabricator Foam Rubber Relationship Specialty Start Date End Date Yokasta Rooney MD, MD PCP - General Internal Medicine 02/23/23 documented as of this encounter
== END ==
LOC: HO.CARD 12:31
PROVIDERS: PCP Internal Medicine; Visit Provider Internal Medicine
DX: G47.34 Idiopathic sleep related nonobstructive alveolar hypoventilation (principal)
CPT/HCPCS: 93306; Q9957

== ENCOUNTER → 2025-01-01 10:32 | Outpatient (BNV) | payer OTHER, SELFPAY | PROVIDERS: PCP Internal Medicine | DX: R94.31 Abnormal electrocardiogram [ECG] [EKG] (principal); R06.02 Shortness of breath; I49.1 Atrial premature depolarization; I49.3 Ventricular premature depolarization | CPT/HCPCS: 93016; 93018; 93350; 93352 ==

== ENCOUNTER 2025-02-05 12:03 | Outpatient (AMB) | payer OTHER, SELFPAY ==
[2025-02-05 12:16] VITALS: BP 90/60; PULSE 82; RESP 15; TEMP 36.8; O2SAT 95; BMI 34.4
--- NOTE | 2025-02-05 12:16 | MHC.PC.OV ---
Vital Signs 02/05/25 12:16 02/05/25 12:55 Height 5 ft 10 in Weight 240 lb BMI 34.4 BP 90/60 95/60 Blood Pressure Location Rt brachial Rt brachial Position Sitting Sitting Respiration 15 Pulse 82 Pulse Source Pulse Oximeter Temp 98.2 F Temp Source Oral Pulse Oximetry (%) 95 Oxygen Delivery Method Room Air Intake Visit Reasons: Follow-up lipids, thyroid, hypertension, labs Intake Note: Pt is here today f/u b/p rccccccccccccccccccccccccccccccccccccccccccccccccccccccccccccccccccccccccccccccccccccccccccccccccccccccccccccccccccrrt Allergies No Known Allergies Allergy (Verified 02/05/25 12:32) Medication List - Last Reconciled 02/05/25 by Yokasta Rooney MD aspirin 81 mg PO DAILY atorvastatin 80 mg PO DAILY levothyroxine 175 mcg PO DAILY lisinopril 5 mg PO DAILY zolpidem 5 mg PO BEDTIME PRN Tobacco use date assessed: 02/05/25 Dental Screening Dental Screen Date: 02/05/25 Did you have a dental visit in the last 12 months?: No Did you have a dental problem in the last 6 months where you did not have access to dental care?: No Was dental information given to patient?: Patient has dentist HPI Follow-up lipids, thyroid, hypertension, labs HPI Details 54-year-old male with history of hypertension, hypothyroidism and hyperlipidemia, here today for follow-up. Has been compliant with taking his medications and tries to follow recommended diet. He has not yet had his fasting labs done. Blood pressure today low normal, 90/60 on the left arm and 95/60 on new right. Patient denies having any headache, no lightheadedness, no palpitation, no shortness of breath or chest pain. Still complaining of pain in left shoulder joint, worse abduction. X-ray of shoulder done in 2022 showed presence of arthritis in left AC joint. Has been seen by Physical therapy at [facility], with no improvement of symptoms reported. Now complains of numbness and tingling going down left arm up to the fingers of left hand. [facility] Medical History Obstructive sleep apnea hypopnea, mild Nocturnal hypoxemia Chronic left shoulder pain Essential hypertension Fall (on)(from) sidewalk curb, initial encounter Impaired fasting glucose Nocturia Primary insomnia Muscle spasticity History of tongue cancer Dyslipidemia Acquired hypothyroidism Rhinitis, allergic Surgical History History of herniorrhaphy Hx of colonoscopy History of surgery History of umbilical hernia Family History Father Unknown family medical history Mother COPD (chronic obstructive pulmonary disease) Son Juvenile onset diabetes mellitus with hyperosmolar coma Social History Housing: House Alcohol intake: current Alcohol intake frequency: a few times a month Patient Tobacco Use Status: Former Tobacco user Years Smoked: 2 yrs e-Cigarette/Vaping Use: Never Used service: No Current occupational status: employed Cognitive needs: No Hearing needs: No Vision needs: Yes Questionnaire PHQ-9 Over the last 2 weeks, how often have you been bothered by any of the following problems? 1. Little interest or pleasure in doing things: not at all 2. Feeling down, depressed, or hopeless: not at all 3. Trouble falling or staying asleep, or sleeping too much: several days 4. Feeling tired or having little energy: several days 5. Poor appetite or overeating: not at all 6. Feeling bad about yourself - or that you are a failure or have let yourself or your family down: not at all 7. Trouble concentrating on things, such as reading the newspaper or watching television: not at all 8. Moving or speaking so slowly that other people could have noticed. Or the opposite - being so fidgety or restless that you have been moving around a lot more than usual: not at all 9. Thoughts that you would be better off or of hurting yourself in some way: not at all Total score: 2 Depression Screening Interpretation: Negative Depression Screening Done: Yes 43152 - PHQ-9 Billing: Yes Source: Developed by Drs. Salazar Martinez, Audrey Dorado, Trace Collins and colleagues, with an educational deisi from [employer]. Thrive Questionnaire Date Thrive assessed: 02/05/25 I am a: Patient What is your living situation today?: I have a steady place to live Within the past 12 months, did the food you bought not last and you didn't have the money to get more?: Never true Within the past 12 months, did you worry whether your food would run out before you got money to buy more?: Never true Do you have trouble paying for medicines?: No Do you have trouble getting transportation to medical appointments?: No Do you have trouble paying your heating and electricity bill?: No Do you have trouble taking care of your child, family member or friend?: No Do you have trouble with day-to-day activities such as bathing, preparing meals, shopping, managing finances, etc.?: No Are you currently unemployed and looking for a job?: No Are you interested in more education?: No Please select the resources that you would like help with: None Currently or been in a relationship where the following occur: No concerns reported THRIVE Score: 0 AUDIT C Alcohol Use Questionnaire (AUDIT-C) 1. How often do you have a drink containing alcohol?: 2-4 times a month 2. How many drinks containing alcohol do you have on a typical day when you are drinking?: 3 or 4 3. How often do you have six or more drinks on one occasion?: Never Total Score: 3 REID-7 AMB Questionnaire REID-7 Date REID - 7 assessed: 02/05/25 Feeling nervous, anxious, or on edge: 0 = Not at all Not being able to stop or control worryin = Not at all Worrying too much about different things: 0 = Not at all Trouble relaxin = Several days Being so restless that it is hard to sit still: 0 = Not at all Becoming easily annoyed or irritable: 0 = Not at all Feeling afraid as if something awful might happen: 0 = Not at all Total REID-7 score (0-4 normal; 5-9 mild; 10-14 moderate; 15-21 severe): 1 Source: Developed by Drs. Salazar Martinez, Audrey Dorado, Trace Collins and colleagues, with an educational deisi from [employer]. Review of Systems Const Denies body aches, Denies fatigue, Denies fever(s) and Denies weakness Eyes Denies change in vision ENT Denies dizziness Card Denies dyspnea Resp Denies chest congestion, Denies cough and Denies dyspnea GI Denies abdominal pain, Denies change in bowel habits and Denies heartburn Details: Has nocturia, currently being followed by [facility] Reports as per HPI Skin/Breast Denies lesions and Denies rash Neuro Denies dizziness and Denies weakness Psych Reports no additional complaints Endo Denies fatigue and Denies polydipsia Grabiel/Lymph Reports no additional complaints Physical exam (Primary Care) Vital Signs: Last Vital Signs Temp 98.2 F 02/05/25 12:16 Pulse 82 02/05/25 12:16 Resp 15 02/05/25 12:16 BP 95/60 02/05/25 12:55 Pulse Ox 95 02/05/25 12:16 Oxygen Delivery Method Room Air 02/05/25 12:16 BMI result Body Mass Index 34.4 Tobacco/Smoking Status: Tobacco use Status Tobacco use date assessed 02/05/25 02/05/25 12:24 Patient Tobacco Use Status Former Tobacco user 02/05/25 12:24 e-Cigarette/Vaping Use Never Used 02/05/25 12:24 PHQ-9: PHQ-9 Score PHQ-9: Total score 2 02/05/25 12:55 Depression Screening Interpretation: Negative Thrive Assessment: Date of Thrive Assessment Date Thrive assessed 02/05/25 02/05/25 12:55 Currently or been in a relationship where the following occur: No concerns reported Advance Care Planning discussion: Completed/Scanned Date of discussion: 08/12/24 Who was present: Patient Forms completed: Health Care Proxy Time spent: 16-45 minutes Actual minutes spent: 16 Const General: no acute distress Nutritional Appearance: obese Orientation/consciousness: patient oriented x3 HENMT General nose exam: Normal external nose present Face and sinus: Yes face symmetric Mouth: moist mucous membranes Eyes General: appearance normal, both eyes and all related structures Neck Other: Supple, no lymphadenopathy, thyroid gland nonpalpable Resp Auscultation: clear to auscultation bilaterally Cardio Other: S1-S2 present regular rate and rhythm GI Palpation (GI): Soft to palpation, nontender, no guarding and no masses Auscultation: normal bowel sounds Skin General skin exam: no rashes or lesions noted Neuro General: patient oriented x3, gait normal, moves all extremities, Normal light touch and pain sensation, CN's II-XI intact bilaterally and normal sensation to monofilament Extrem General: Yes full ROM, Yes no joint enlargement, Yes no pedal edema, Yes no calf tenderness and Yes normal gait Psych Appearance: grossly normal Mental Status: mental status grossly normal Speech and movement: Normal speech and movement present Affect: normal affect Attitude: cooperative Coding Level of Care Code Est Pt Level 4 (54339) Complex EM visit Add On G2211 Diagnoses Chronic left shoulder pain M25.512; G89.29 Acquired hypothyroidism E03.9 Dyslipidemia E78.5 Impaired fasting glucose R73.01 Essential hypertension I10 Additional Codes PHQ-9 - 66276 - PHQ-9 Billing: Yes ([id number]) Vital Signs *Quality* - Advance Care Planning discussion: Completed/Scanned ([id number]) Vital Signs *Quality* - Time spent: 16-45 minutes ([id number]) Assessment & Plan Assessment & Plan (1) Chronic left shoulder pain: Code(s): M25.512 - Pain in left shoulder; G89.29 - Other chronic pain Category: Medical Plan: No improvement with physical therapy. Takes [id number] naproxen which affords only temporary relief, will refer to orthopedics for further evaluation management. (2) Acquired hypothyroidism: Code(s): E03.9 - Hypothyroidism, unspecified Category: Medical Plan: Reminded to get his fasting labs done to check thyroid levels continued on current dose of levothyroxine 175 mcg daily taken in the morning an hour before breakfast (3) Dyslipidemia: Code(s): E78.5 - Hyperlipidemia, unspecified Category: Medical Plan: Reminded to get his fasting lipid levels and liver enzymes ordered. Currently on atorvastatin 80 mg daily (4) Impaired fasting glucose: Code(s): R73.01 - Impaired fasting glucose Category: Medical Plan: Fasting blood sugar ordered today, reinforced importance of following a healthy diet and getting regular exercise. (5) Essential hypertension: Code(s): I10 - Essential (primary) hypertension Category: Medical Plan: Blood pressure running on the low end of normal, patient denies any headache, no lightheadedness, no palpitation or shortness of breath or chest pain. Will continue on lisinopril 5 mg daily. Has an appointment with Cardiology already scheduled for next week. Had echocardiogram and stress test done recently which came back with normal findings. Orders: Orders Lipid Panel Today E03.9 - Hypothyroidism, unspecified, E78.5 - Hyperlipidemia, unspecified, G89.29 - Other chronic pain, I10 - Essential (primary) hypertension, M25.512 - Pain in left shoulder, N30.10 - Interstitial cystitis (chronic) without hematuria, R73.01 - Impaired fasting glucose Aspartate Amino Transferase Today E03.9 - Hypothyroidism, unspecified, E78.5 - Hyperlipidemia, unspecified, G89.29 - Other chronic pain, I10 - Essential (primary) hypertension, M25.512 - Pain in left shoulder, N30.10 - Interstitial cystitis (chronic) without hematuria, R73.01 - Impaired fasting glucose Complete Blood Count Auto Diff Today E03.9 - Hypothyroidism, unspecified, E78.5 - Hyperlipidemia, unspecified, G89.29 - Other chronic pain, I10 - Essential (primary) hypertension, M25.512 - Pain in left shoulder, N30.10 - Interstitial cystitis (chronic) without hematuria, R73.01 - Impaired fasting glucose Vitamin D 25-OH Total Today E03.9 - Hypothyroidism, unspecified, E78.5 - Hyperlipidemia, unspecified, G89.29 - Other chronic pain, I10 - Essential (primary) hypertension, M25.512 - Pain in left shoulder, N30.10 - Interstitial cystitis (chronic) without hematuria, R73.01 - Impaired fasting glucose Alanine Aminotransferase Today E03.9 - Hypothyroidism, unspecified, E78.5 - Hyperlipidemia, unspecified, G89.29 - Other chronic pain, I10 - Essential (primary) hypertension, M25.512 - Pain in left shoulder, N30.10 - Interstitial cystitis (chronic) without hematuria, R73.01 - Impaired fasting glucose Basic Metabolic Panel Fasting Today E03.9 - Hypothyroidism, unspecified, E78.5 - Hyperlipidemia, unspecified, G89.29 - Other chronic pain, I10 - Essential (primary) hypertension, M25.512 - Pain in left shoulder, N30.10 - Interstitial cystitis (chronic) without hematuria, R73.01 - Impaired fasting glucose Thyroid Stimulating Hormone Today E03.9 - Hypothyroidism, unspecified, E78.5 - Hyperlipidemia, unspecified, G89.29 - Other chronic pain, I10 - Essential (primary) hypertension, M25.512 - Pain in left shoulder, N30.10 - Interstitial cystitis (chronic) without hematuria, R73.01 - Impaired fasting glucose Free T4 (Free Thyroxine) Today E03.9 - Hypothyroidism, unspecified, E78.5 - Hyperlipidemia, unspecified, G89.29 - Other chronic pain, I10 - Essential (primary) hypertension, M25.512 - Pain in left shoulder, N30.10 - Interstitial cystitis (chronic) without hematuria, R73.01 - Impaired fasting glucose Referrals Orthopedics Referral G89.29 - Other chronic pain, M25.512 - Pain in left shoulder
[2025-02-05 12:55] VITALS: BP 95/60
== END 2025-02-05 15:07 | disposition home or self-care (01) ==
LOC: HO.HMCC 12:04
PROVIDERS: PCP Internal Medicine; Visit Provider Internal Medicine
DX: M25.512 Pain in left shoulder (principal); G89.29 Other chronic pain; E03.9 Hypothyroidism, unspecified; E78.5 Hyperlipidemia, unspecified; R73.01 Impaired fasting glucose; I10 Essential (primary) hypertension; Z00.00 Encounter for general adult medical examination without abnormal findings

== ENCOUNTER → 2025-02-05 12:03 | Outpatient (BNVA) | payer OTHER, SELFPAY | PROVIDERS: PCP Internal Medicine; Visit Provider Internal Medicine | DX: I10 Essential (primary) hypertension (principal); M25.512 Pain in left shoulder; G89.29 Other chronic pain; E03.9 Hypothyroidism, unspecified; E78.5 Hyperlipidemia, unspecified; R73.01 Impaired fasting glucose; Z79.899 Other long term (current) drug therapy | CPT/HCPCS: 96127 ==

== ENCOUNTER 2025-02-07 06:34 | Outpatient (REF) | payer OTHER, SELFPAY ==
--- OUTSIDE RECORDS SUMMARY | 2025-02-07 06:35 | XMS_ITS | Data Portability ---
Author Organization [place] - [facility], [facility] Address [address] [place] [address] Assessment Encounter Date Assessment Date Assessment LastModified [...] Name and Address Organization Details Recorded Time 22919 Therapeutic Exercise (1:1) completed Efrain Vladimir, PT [address], , [address], [facility] 09/23/2024 23:08:46 62810: Hot or Cold Pack completed Efrain Vladimir, PT [address], , [address], [facility] 09/23/2024 23:08:46 10557: Manual therapy completed Efrain Vladimir, PT [address], , [address], [facility] 09/23/2024 23:08:46 [id number] Therapeutic Exercise (1:1) completed Efrain Vladimir, PT [address], , [address], [facility] 09/19/2024 13:42:26 01122: Hot or Cold Pack completed Efrain Vladimir, PT [address], , [address], [facility] 09/19/2024 13:42:26 66441: Manual therapy completed Efrain Vladimir, PT [address], , [address], [facility] 09/19/2024 13:42:26 76269 Therapeutic Exercise (1:1) completed Efrain Vladimir, PT [address], , [address], [facility] 09/17/2024 23:27:07 10/21/202 4 73528: Hot or Cold Pack completed Efrain Vladimir, PT [address], , [address], [facility] 09/17/2024 01:17:58 4 72366: Manual therapy completed Efrain Vladimir, PT [address], , [address], [facility] 09/17/2024 23:27:04 4 69461 Therapeutic Exercise (1:1) completed Efrain Vladimir, PT [address], , [address], [facility] 09/16/2024 14:57:31 4 22292: Hot or Cold Pack completed Efrain Vladimir, PT [address], , [address], [facility] 09/16/2024 14:57:30 4 77777: Manual therapy completed Efrain Vladimir, PT [address], , [address], [facility] 09/16/2024 14:57:31 18362 Therapeutic Exercise (1:1) completed Efrain Vladimir, PT [address], , [address], [facility] 09/12/2024 00:08:08 4 65582: Hot or Cold Pack completed Efrain Vladimir, PT [address], , [address], [facility] 09/12/2024 00:08:08 56529: Manual therapy completed Efrain Vladimir, PT [address], , [address], [facility] 09/12/2024 00:08:08 42852 Therapeutic Exercise (1:1) completed Efrain Vladimir, PT [address], , [address], [facility] 09/03/2024 00:04:36 4 09438: Hot or Cold Pack completed Efrain Vladimir, PT [address], , [address], [facility] 09/03/2024 00:04:01 4 48532: Manual therapy completed Efrain Vladimir, PT [address], , [address], [facility] 09/03/2024 00:04:32 4 03575 Therapeutic Exercise (1:1) completed Efrain Vladimir, PT [address], , [address], [facility] 08/31/2024 22:38:46 4 34400: Manual therapy completed Efrain Vladimir, PT [address], , [address], [facility] 08/31/2024 22:38:46 4 84591 Therapeutic Exercise (1:1) completed Efrain Vladimir, PT [address], , [address], [facility] 08/29/2024 01:19:52 4 66633: Manual therapy completed Efrain Vladimir, PT [address], , [address], [facility] 08/29/2024 01:19:52 4 57778 Therapeutic Exercise (1:1) completed Efrain Vladimir, PT [address], , [address], [facility] 08/24/2024 22:14:27 4 03031: Manual therapy completed Efrain Vladimir, PT [address], , [address], [facility] 08/24/2024 22:14:39 4 98077 Therapeutic Exercise (1:1) completed Efrain Vladimir, PT [address], , [address], [facility] 08/19/2024 12:27:21 4 03348: Low complexity PT Eval completed Efrain Vladimir, PT [address], , [address], [facility] 08/19/2024 12:27:27 Imaging Results None recorded. Procedure Notes None recorded. Medical Equipment None Reported. Vitals None Recorded Social History None recorded. Functional Status None recorded. Mental Status None recorded. Family History Nothing Reported. Medical History No medical history recorded. Past Encounters Encounter ID Performer Location Encounter Start Date Encounter Closed Date Diagnosis/Indication Diagnosis SNOMED-CT Code Diagnosis ICD10 Code Diagnosis Note [id number] Efrain Vladimir, PT [facility] [address] [place] [address] 08/18/2024 14:15:38 08/18/2024 16:10:13 Cervical radiculopathy 31390301 M54.12 [id number] Efrain Vladimir, PT [facility] [address] [place] [address] 08/22/2024 14:08:03 08/22/2024 15:45:08 Cervical radiculopathy 58776091 M54.12 [id number] Efrain Rivaso, PT [facility] [address] [place] [address] 08/27/2024 14:16:05 08/27/2024 15:26:24 Cervical radiculopathy 79107909 M54.12 [id number] Efrain Vladimir, PT [facility] [address] [place] [address] 08/29/2024 14:02:19 08/29/2024 15:48:11 Cervical radiculopathy 11896543 M54.12 [id number] Efrain Lealonso, PT [facility] [address] [place] [address] 09/01/2024 13:35:22 09/01/2024 15:20:21 Cervical radiculopathy 75106748 M54.12 [id number] Efrain Vladimir, PT [facility] [address] [place] [address] 09/10/2024 13:56:10 09/10/2024 15:30:52 Cervical radiculopathy 93321071 M54.12 [id number] Efrain Vladimir, PT [facility] [address] [place] [address] 09/12/2024 13:58:24 09/12/2024 15:52:30 Cervical radiculopathy 90337073 M54.12 [id number] Efrain Vladimir, PT [facility] [address] [place] [address] 09/15/2024 14:23:29 09/15/2024 15:26:44 Cervical radiculopathy 46098263 M54.12 [id number] Efrain Rivaso, PT [facility] [address] [place] [address] 09/19/2024 13:25:22 09/19/2024 15:11:19 Cervical radiculopathy 18526343 M54.12 [id number] Efrain Rivaso, PT [facility] [address] [place] [address] 09/22/2024 14:01:11 09/22/2024 15:48:27 Cervical radiculopathy 77156893 M54.12 [id number] Efrain Rivaso, PT [facility] [address] [place] [address] 09/24/2024 14:04:43 09/24/2024 15:11:42 Cervical radiculopathy 88041545 M54.12 Health Concerns Section Related Observation LastModified by Organization Detai ls LastModified Time None Recorded Concern Status LastModified by Organization Details LastModified Time None Recorded Advance Directives Directive None Recorded Payers Encounter Date Sequence Insurance Name Policy Number Policy Teixeira Covered Member ID Teixeira Member ID Guarantor Name 09/12/2024 1 [facility] [id number] Jose J Portillo [id number] Jose J Portillo 09/15/2024 1 [facility] [id number] Jose J Portillo [id number] Jose J Portillo 09/19/2024 1 [facility] [id number] Jose J Leale [id number] Jose J Iberia 09/22/2024 1 [facility] [id number] Hernando Iberia [id number] Jose J Iberia 09/24/2024 1 [facility] [id number] Jose J Pennington Iberia [id number] Jose J Iberia Notes Date Note Type Note Provider Name and Address Organization Details Recorded Time 09/12/2024 text/html Pt states he was doing some small electrical work (replacing outlets) at home and felt a little more numbness L thumb afterwards. Efrain Gilbert, PT [address], , [address], [facility] 09/17/2024 23:33:36 09/15/2024 text/html Pt states he was doing some small electrical work (replacing outlets) at home and felt a little more numbness L thumb afterwards. Efrain Gilbert, PT [address], , [address], [facility] 09/17/2024 23:27:35 09/19/2024 text/html Pt states feelin g a little better with L thumb numbness but still present, neck feels stiff on L. Efrain Gilbert PT [address], , [address], [facility] 09/23/2024 11:56:52 09/22/2024 text/html Pt states overal l L neck feeling better but still stiff feeling tight vs R. Efrain Gilbert PT [address], , [address], [facility] 09/23/2024 23:12:39 09/24/2024 text/html Pt states L neck feeling stiff today but overall less pain, pt states 2nd-4th digits not getting numb, however thumb still getting numb. Efrain Gilbert, PT [address], , [address], [facility] 09/28/2024 22:40:24
[2025-02-07 11:21] LABS: MANUAL DIFF FLAG NO
[2025-02-07 11:25] LABS: Basophils Percent Auto 0.6 % (0-2); Eosinophils Absolute Auto 0.1 X10*3/uL (0.0-0.4); Hemoglobin 15.3 g/dl (14.0-18.0); Imm Gran Abs Auto 0.04 X10*3/uL (0.00-0.03); Imm Gran Pct Auto 0.6 % (0.0-0.4); Lymphocytes Absolute Auto 0.7 X10*3/uL (1.2-4.9); Lymphocytes Percent Auto 10.9 % (20-40); Mean Corpuscular HGB Conc 34.8 g/dl (31.0-36.0); Mean Corpuscular Hemoglobin 30.4 pg (27.0-33.0); Mean Corpuscular Volume 87.3 fL (80.0-98.0); Mean Platelet Volume 10.2 fL (9.4-12.4); Monocytes Absolute Auto 0.5 X10*3/uL (0.1-1.2); Monocytes Percent Auto 8.6 % (2-11); Neutrophils Absolute Auto 4.8 x10*3/uL (2.0-8.3); Neutrophils Percent Auto 78.3 % (45-73); Platelet Count 258 X10*3/uL (160-400); Red Blood Count 5.04 X10*6/uL (4.60-5.80); White Blood Count 6.2 X10*3/uL (4.8-10.8)
[2025-02-07 11:54] LABS: Alanine Aminotransferase 22 U/L (0-40); Anion Gap 13 (12-20); Aspartate Amino Transferase 33 U/L (5-37); Blood Urea Nitrogen 18 mg/dL (9-16); Calcium 9.5 mg/dL (8.4-10.2); Carbon Dioxide 26 mmol/L (22-29); Chloride 107 mmol/L (96-108); Cholesterol 119 mg/dL (<200); Estimated Glomerular Filt Rate > 60; Glucose Fasting 99 mg/dL (60-99); HDL Cholesterol 49 mg/dL (>40); LDL Cholesterol Calculated 60 mg/dL (<100); Potassium 4.7 mmol/L (3.3-5.1); Sodium 141 mmol/L (135-145); Triglycerides 54 mg/dL (<150)
[2025-02-07 12:21] LABS: Free T4 (Free Thyroxine) 1.38 ng/dL (0.71-1.85); Thyroid Stimulating Hormone 1.61 uIU/mL (0.32-4.0)
== END 2025-02-07 06:35 | disposition home or self-care (01) ==
LOC: HO.HMGCLDS 06:34
PROVIDERS: PCP Internal Medicine; Visit Provider Internal Medicine
DX: N30.10 Interstitial cystitis (chronic) without hematuria (principal); M25.512 Pain in left shoulder; G89.29 Other chronic pain; I10 Essential (primary) hypertension; R73.01 Impaired fasting glucose; E78.5 Hyperlipidemia, unspecified; E03.9 Hypothyroidism, unspecified
CPT/HCPCS: 36415; 80048; 80061; 82306; 84439; 84443; 84450; 84460; 85025

== ENCOUNTER 2025-02-12 12:38 | Outpatient (AMB) | payer OTHER, SELFPAY ==
[2025-02-12 12:52] VITALS: BP 84/60; PULSE 81; BMI 34.2
--- NOTE | 2025-02-12 12:52 | MHC.OFFVIS ---
Vital Signs 02/12/25 12:52 Height 5 ft 10 in Weight 238 lb 1.588 oz BMI 34.2 BP 84/60 L Blood Pressure Location Lt brachial Position Sitting Pulse 81 Pulse Source Pulse Oximeter Intake Visit Reasons: follow up after testing Allergies No Known Allergies Allergy (Verified 02/05/25 12:32) Medication List - Last Reconciled 02/12/25 by Christiano Cantrell NP aspirin 81 mg PO DAILY atorvastatin 80 mg PO DAILY cholecalciferol (vitamin D3) 1,250 mcg PO QWEEK 3 months levothyroxine 175 mcg PO DAILY lisinopril 5 mg PO DAILY zolpidem 5 mg PO BEDTIME PRN HPI Comments Details: This is a 54-year-old male patient presenting for a follow-up visit. He has a history of hypertension, dyslipidemia throat cancer status post chemotherapy and radiation, and obesity. The patient was recently seen for consultation regarding abnormal sleep study and subsequently underwent echocardiogram and a stress echo test. Patient with no history of coronary artery disease, ischemic heart disease, or cardiomyopathy. The patient denies any cardiac symptoms including exertional shortness of breath, chest pain, palpitations, dizziness, orthopnea, PND, fatigue, leg edema, presyncope, or syncope. The patient's primary concern today is that his blood pressure has been consistently on the lower side. He has been taking lisinopril 5 mg daily for the past 2 years for high blood pressures. The patient reports that lately his blood pressure readings at his doctor's office visits have consistently been lower and continue to decrease. However, he denies experiencing any symptoms associated with a low blood pressure. [facility] Medical History Vitamin D deficiency Obstructive sleep apnea hypopnea, mild Nocturnal hypoxemia Chronic left shoulder pain Essential hypertension Fall (on)(from) sidewalk curb, initial encounter Impaired fasting glucose Nocturia Primary insomnia Muscle spasticity History of tongue cancer Dyslipidemia Acquired hypothyroidism Rhinitis, allergic Surgical History History of herniorrhaphy Hx of colonoscopy History of surgery History of umbilical hernia Family History Father Unknown family medical history Mother COPD (chronic obstructive pulmonary disease) Son Juvenile onset diabetes mellitus with hyperosmolar coma Social History Housing: House Alcohol intake: current Alcohol intake frequency: a few times a month Patient Tobacco Use Status: Former Tobacco user Years Smoked: 2 yrs e-Cigarette/Vaping Use: Never Used service: No Current occupational status: employed Cognitive needs: No Hearing needs: No Vision needs: Yes Review of Systems Const Denies weakness ENT Denies dizziness Card Denies chest pain, Denies chest pain with activity, Denies syncope, Denies rapid heart rate, Denies pedal edema, Denies edema, Denies leg edema, Denies lightheadedness, Denies palpitations, Denies dyspnea, Denies dyspnea on exertion and Denies orthopnea Resp Denies cough, Denies dyspnea and Denies dyspnea on exertion GI Denies hematochezia and Denies change in stool character Musc Denies abnormal gait, Denies muscle cramps, Denies muscle weakness, Denies numbness, Denies radiating pain into limb and Denies tingling Neuro Denies abnormal gait, Denies dizziness, Denies syncope, Denies numbness, Denies tingling and Denies weakness Endo Denies palpitations Physical Exam Vital Signs: Last Vital Signs Pulse 81 02/12/25 12:52 BP 84/60 L 02/12/25 12:52 BMI result Body Mass Index 34.2 Const General: cooperative, healthy appearing, comfortable and no acute distress Orientation/consciousness: patient oriented x3 HEENT Head: Yes normal to inspection Neck Neck: Yes normal visual inspection, Yes trachea midline and Yes supple Chest Chest palpation & inspection: normal inspection of the chest Resp Effort & Inspection: normal respiratory effort Auscultation: clear to auscultation bilaterally, no crackles, no rales, no rhonchi and no wheezes Cardio Jugular venous distension: no JVD Palpation: normal PMI Rate: regular rate Rhythm: regular rhythm Heart sounds: S1 normal heart sound present, S2 normal heart sound present, no click, no gallops, no murmurs and no rubs Peripheral pulses: Peripheral pulses 2+ throughout GI Inspection: Yes normal to inspection Palpation (GI): Soft to palpation Auscultation: normal bowel sounds Skin General skin exam: no rashes or lesions noted Neuro General: patient oriented x3 Extrem General: Yes normal to inspection, No no pedal edema and No calf tenderness Psych Appearance: grossly normal Mental Status: mental status grossly normal Speech and movement: Normal speech and movement present Assessment & Plan Assessment & Plan (1) Nocturnal hypoxemia: Code(s): G47.34 - Idiopathic sleep related nonobstructive alveolar hypoventilation Category: Medical Plan: 03/04/2024-patient had a home sleep study that showed mild obstructive sleep apnea, with nocturnal hypoxemia average O2 sat 91%, lowest O2 sat a 58%, and O2 sat below 88% for 8 minutes. To evaluate for cardiac contributing factors, patient underwent echocardiogram and a stress echo. 12/25/2024-echo study showed a normal EF at 58%, mild dilation of the sinuses of Valsalva at 4.35 cm and mild dilation of the ascending aorta at 4.0 cm. 01/01/2025-patient underwent a stress echo which was normal and negative for exercise induced ischemia or diastolic dysfunction. Given these normal findings and per recommendation, we will refer patient to pulmonology to further evaluate for the cause of his nocturnal hypoxemia. (2) Essential hypertension: Code(s): I10 - Essential (primary) hypertension Category: Medical Plan: Blood pressure today continues to be on the lower side. Continues to deny any symptoms with this. We will stop lisinopril. Advised patient to increase fluid intake and add extra salt in his diet for now. Advised to monitor blood pressures at home and keeping a log to bring to his next visit. Patient will come back in 2 weeks for blood pressure check with the nurse. (3) Dyslipidemia: Code(s): E78.5 - Hyperlipidemia, unspecified Category: Medical Plan: Most recent LDL at 60, within goal of less than 70. Continue high-dose statin therapy. Advised heart healthy diet, regular exercise, losing weight, aggressive management his vascular risk factors, and pushing fluids. Patient will follow-up in 2 weeks with the nurse for a blood pressure check and depending on the results patient can follow up as needed in the office. In the interim, patient will call the office with any concerns or change in symptoms. This note was generated using voice recognition software. While every effort has been made to ensure accuracy and proper building specialist, there may be occasional errors that could affect the content or meaning of the described symptoms. Orders: Referrals Pulmonology Referral G47.34 - Idiopathic sleep related nonobstructive alveolar hypoventilation Medications: New blood pressure monitor As directed 1 ea 0RF Discontinued lisinopril Discontinued Reason: Doctor's Order 5 mg PO DAILY 90 tabs 1RF Coding Level of Care Code Est Pt Level 4 (98563) Complex EM visit Add On G2211 Diagnoses Nocturnal hypoxemia G47.34 Essential hypertension I10 Dyslipidemia E78.5 Time Spent (min) 31 Comment Time spent in reviewing the chart, test results, assessment, counseling and documentation.
== END 2025-02-12 13:18 | disposition home or self-care (01) ==
PROVIDERS: PCP Internal Medicine
DX: G47.34 Idiopathic sleep related nonobstructive alveolar hypoventilation (principal); I10 Essential (primary) hypertension; E78.5 Hyperlipidemia, unspecified
CPT/HCPCS: 99214

== ENCOUNTER 2025-04-02 08:47 | Outpatient (REF) | payer OTHER, SELFPAY ==
--- OUTSIDE RECORDS SUMMARY | 2025-04-07 09:09 | XMS_ITS | Data Portability ---
Author Organization [place] - [facility], [facility] Address [address] [place] [address] Assessment Encounter Date Assessment Date Assessment LastModified [...] Name and Address Organization Details Recorded Time 75735 Therapeutic Exercise (1:1) completed Efrain Vladimir, PT [address], [place], [address], [facility] 09/23/2024 23:08:46 15947: Hot or Cold Pack completed Efrain Vladimir, PT [address], [place], [address], [facility] 09/23/2024 23:08:46 99014: Manual therapy completed Efrain Vladimir, PT [address], [place], [address], [facility] 09/23/2024 23:08:46 98922 Therapeutic Exercise (1:1) completed Efrain Vladimir, PT [address], [place], [address], [facility] 09/19/2024 13:42:26 79996: Hot or Cold Pack completed Efrain Vladimir, PT [address], [place], [address], [facility] 09/19/2024 13:42:26 02963: Manual therapy completed Efrain Vladimir, PT [address], [place], [address], [facility] 09/19/2024 13:42:26 97364 Therapeutic Exercise (1:1) completed Efrain Vladimir, PT [address], [place], [address], [facility] 09/17/2024 23:27:07 10/21/202 4 88973: Hot or Cold Pack completed Efrain Vladimir, PT [address], [place], [address], [facility] 09/17/2024 01:17:58 4 87781: Manual therapy completed Efrain Vladimir, PT [address], [place], [address], [facility] 09/17/2024 23:27:04 4 58771 Therapeutic Exercise (1:1) completed Efrain Vladimir, PT [address], [place], [address], [facility] 09/16/2024 14:57:31 4 61731: Hot or Cold Pack completed Efrain Vladimir, PT [address], [place], [address], [facility] 09/16/2024 14:57:30 4 34643: Manual therapy completed Efrain Vladimir, PT [address], [place], [address], [facility] 09/16/2024 14:57:31 82871 Therapeutic Exercise (1:1) completed Efrain Vladimir, PT [address], [place], [address], [facility] 09/12/2024 00:08:08 4 78861: Hot or Cold Pack completed Efrain Vladimir, PT [address], [place], [address], [facility] 09/12/2024 00:08:08 68318: Manual therapy completed Efarin Vladimir, PT [address], [place], [address], [facility] 09/12/2024 00:08:08 08341 Therapeutic Exercise (1:1) completed Efrain Vladimir, PT [address], [place], [address], [facility] 09/03/2024 00:04:36 4 60422: Hot or Cold Pack completed Efrain Vladimir, PT [address], [place], [address], [facility] 09/03/2024 00:04:01 4 58250: Manual therapy completed Efrain Vladimir, PT [address], [place], [address], [facility] 09/03/2024 00:04:32 4 34953 Therapeutic Exercise (1:1) completed Efrain Vladimir, PT [address], [place], [address], [facility] 08/31/2024 22:38:46 4 59103: Manual therapy completed Efrain Vladimir, PT [address], [place], [address], [facility] 08/31/2024 22:38:46 4 71529 Therapeutic Exercise (1:1) completed Efrain Vladimir, PT [address], [place], [address], [facility] 08/29/2024 01:19:52 4 95397: Manual therapy completed Efrain Vladimir, PT [address], [place], [address], [facility] 08/29/2024 01:19:52 4 28622 Therapeutic Exercise (1:1) completed Efrain Vladimir, PT [address], [place], [address], [facility] 08/24/2024 22:14:27 4 53595: Manual therapy completed Efrain Vladimir, PT [address], [place], [address], [facility] 08/24/2024 22:14:39 4 56787 Therapeutic Exercise (1:1) completed Efrain Vladimir, PT [address], [place], [address], [facility] 08/19/2024 12:27:21 4 05983: Low complexity PT Eval completed Efrain Vladimir, PT [address], [place], [address], [facility] 08/19/2024 12:27:27 Imaging Results None recorded. Procedure Notes None recorded. Medical Equipment None Reported. Vitals None Recorded Social History None recorded. Functional Status None recorded. Mental Status None recorded. Family History Nothing Reported. Medical History No medical history recorded. Past Encounters Encounter ID Performer Location Encounter Start Date Encounter Closed Date Diagnosis/Indication Diagnosis SNOMED-CT Code Diagnosis ICD10 Code Diagnosis Note [id number] Efrain Vladimir, PT [facility] [address] [place] [address] 08/18/2024 14:15:38 08/18/2024 16:10:13 Cervical radiculopathy 39798524 M54.12 [id number] Efrain Vladimir, PT [facility] [address] [place] [address] 08/22/2024 14:08:03 08/22/2024 15:45:08 Cervical radiculopathy 87612589 M54.12 [id number] Efrain Rivaso, PT [facility] [address] [place] [address] 08/27/2024 14:16:05 08/27/2024 15:26:24 Cervical radiculopathy 98546795 M54.12 [id number] Efrain Vladimir, PT [facility] [address] [place] [address] 08/29/2024 14:02:19 08/29/2024 15:48:11 Cervical radiculopathy 51633791 M54.12 [id number] Efrain Lealonso, PT [facility] [address] [place] [address] 09/01/2024 13:35:22 09/01/2024 15:20:21 Cervical radiculopathy 94283665 M54.12 [id number] Efrain Vladimir, PT [facility] [address] [place] [address] 09/10/2024 13:56:10 09/10/2024 15:30:52 Cervical radiculopathy 60811339 M54.12 [id number] Efrain Vladimir, PT [facility] [address] [place] [address] 09/12/2024 13:58:24 09/12/2024 15:52:30 Cervical radiculopathy 93559395 M54.12 [id number] Efrain Vladimir, PT [facility] [address] [place] [address] 09/15/2024 14:23:29 09/15/2024 15:26:44 Cervical radiculopathy 54608085 M54.12 [id number] Efrain Rivaso, PT [facility] [address] [place] [address] 09/19/2024 13:25:22 09/19/2024 15:11:19 Cervical radiculopathy 52522931 M54.12 [id number] Efrain Rivaso, PT [facility] [address] [place] [address] 09/22/2024 14:01:11 09/22/2024 15:48:27 Cervical radiculopathy 11540478 M54.12 [id number] Efrain Rivaso, PT [facility] [address] [place] [address] 09/24/2024 14:04:43 09/24/2024 15:11:42 Cervical radiculopathy 89812463 M54.12 Health Concerns Section Related Observation LastModified by Organization Detai ls LastModified Time None Recorded Concern Status LastModified by Organization Details LastModified Time None Recorded Advance Directives Directive None Recorded Payers Encounter Date Sequence Insurance Name Policy Number Policy Teixeira Covered Member ID Teixeira Member ID Guarantor Name 09/12/2024 1 [facility] [id number] Jose J Portillo [id number] Jose J Portillo 09/15/2024 1 [facility] [id number] Jose J Portillo [id number] Jose J Portillo 09/19/2024 1 [facility] [id number] Jose J Leale [id number] Jose J [place] 09/22/2024 1 [facility] [id number] [place] [id number] Jose J [place] 09/24/2024 1 [facility] [id number] Jose J [place] [id number] Jose J [place] Notes Date Note Type Note Provider Name and Address Organization Details Recorded Time 09/12/2024 text/html Pt states he was doing some small electrical work (replacing outlets) at home and felt a little more numbness L thumb afterwards. Efrain Gilbert, PT [address], [place], [address], [facility] 09/17/2024 23:33:36 09/15/2024 text/html Pt states he was doing some small electrical work (replacing outlets) at home and felt a little more numbness L thumb afterwards. Efrain Gilbert, PT [address], [place], [address], [facility] 09/17/2024 23:27:35 09/19/2024 text/html Pt states feelin g a little better with L thumb numbness but still present, neck feels stiff on L. Efrain Gilbert PT [address], [place], [address], [facility] 09/23/2024 11:56:52 09/22/2024 text/html Pt states overal l L neck feeling better but still stiff feeling tight vs R. Efrain Gilbert PT [address], [place], [address], [facility] 09/23/2024 23:12:39 09/24/2024 text/html Pt states L neck feeling stiff today but overall less pain, pt states 2nd-4th digits not getting numb, however thumb still getting numb. Efrain Gilbert, PT [address], [place], [address], [facility] 09/28/2024 22:40:24
== END 2025-04-02 08:48 | disposition home or self-care (01) ==
LOC: HO.HOSX 08:47
PROVIDERS: Visit Provider Orthopaedic Surgery
DX: Z13.89 Encounter for screening for other disorder (principal)

== ENCOUNTER 2025-04-23 09:12 | Outpatient (REF) | payer OTHER, SELFPAY ==
--- OUTSIDE RECORDS SUMMARY | 2025-04-24 09:25 | XMS_ITS | Data Portability ---
Author Organization [place] - [facility], [facility] Address [address] [place] [address] Assessment Encounter Date Assessment Date Assessment LastModified [...] Name and Address Organization Details Recorded Time 93661 Therapeutic Exercise (1:1) completed Efrain Vladimir, PT [address], [place], [address], [facility] 09/23/2024 23:08:46 87947: Hot or Cold Pack completed Efrain Vladimir, PT [address], [place], [address], [facility] 09/23/2024 23:08:46 68672: Manual therapy completed Efrain Vladimir, PT [address], [place], [address], [facility] 09/23/2024 23:08:46 [id number] Therapeutic Exercise (1:1) completed Efrain Vladimir, PT [address], [place], [address], [facility] 09/19/2024 13:42:26 52956: Hot or Cold Pack completed Efrain Vladimir, PT [address], [place], [address], [facility] 09/19/2024 13:42:26 10513: Manual therapy completed Efrain Vladimir, PT [address], [place], [address], [facility] 09/19/2024 13:42:26 [id number] Therapeutic Exercise (1:1) completed Efrain Vladimir, PT [address], [place], [address], [facility] 09/17/2024 23:27:07 10/21/202 4 95093: Hot or Cold Pack completed Efrain Vladimir, PT [address], [place], [address], [facility] 09/17/2024 01:17:58 4 61822: Manual therapy completed Efrain Vladimir, PT [address], [place], [address], [facility] 09/17/2024 23:27:04 4 70574 Therapeutic Exercise (1:1) completed Efrain Vladimir, PT [address], [place], [address], [facility] 09/16/2024 14:57:31 4 08013: Hot or Cold Pack completed Efrain Vladimir, PT [address], [place], [address], [facility] 09/16/2024 14:57:30 4 55946: Manual therapy completed Efrain Vladimir, PT [address], [place], [address], [facility] 09/16/2024 14:57:31 59977 Therapeutic Exercise (1:1) completed Efrain Vladimir, PT [address], [place], [address], [facility] 09/12/2024 00:08:08 4 52892: Hot or Cold Pack completed Efrain Vladimir, PT [address], [place], [address], [facility] 09/12/2024 00:08:08 09131: Manual therapy completed Efrain Vladimir, PT [address], [place], [address], [facility] 09/12/2024 00:08:08 83088 Therapeutic Exercise (1:1) completed Efrain Vladimir, PT [address], [place], [address], [facility] 09/03/2024 00:04:36 4 40048: Hot or Cold Pack completed Efrain Vladimir, PT [address], [place], [address], [facility] 09/03/2024 00:04:01 4 83563: Manual therapy completed Efrain Vladimir, PT [address], [place], [address], [facility] 09/03/2024 00:04:32 4 64589 Therapeutic Exercise (1:1) completed Efrain Vladimir, PT [address], [place], [address], [facility] 08/31/2024 22:38:46 4 38541: Manual therapy completed Efrain Vladimir, PT [address], [place], [address], [facility] 08/31/2024 22:38:46 4 77023 Therapeutic Exercise (1:1) completed Efrain Vladimir, PT [address], [place], [address], [facility] 08/29/2024 01:19:52 4 41846: Manual therapy completed Efrain Vladimir, PT [address], [place], [address], [facility] 08/29/2024 01:19:52 4 80412 Therapeutic Exercise (1:1) completed Efrain Vladimir, PT [address], [place], [address], [facility] 08/24/2024 22:14:27 4 81022: Manual therapy completed Efrain Vladimir, PT [address], [place], [address], [facility] 08/24/2024 22:14:39 4 76462 Therapeutic Exercise (1:1) completed Efrain Vladimir, PT [address], [place], [address], [facility] 08/19/2024 12:27:21 4 68030: Low complexity PT Eval completed Efrain Vladimir, PT [address], [place], [address], [facility] 08/19/2024 12:27:27 Imaging Results None recorded. Procedure Notes None recorded. Medical Equipment None Reported. Vitals None Recorded Social History None recorded. Functional Status None recorded. Mental Status None recorded. Family History Nothing Reported. Medical History No medical history recorded. Past Encounters Encounter ID Performer Location Encounter Start Date Encounter Closed Date Diagnosis/Indication Diagnosis SNOMED-CT Code Diagnosis ICD10 Code Diagnosis Note [id number] Efrain Vladimir, PT [facility] [address] [place] [address] 08/18/2024 14:15:38 08/18/2024 16:10:13 Cervical radiculopathy 70293023 M54.12 [id number] Efrain Vladimir, PT [facility] [address] [place] [address] 08/22/2024 14:08:03 08/22/2024 15:45:08 Cervical radiculopathy 68088193 M54.12 [id number] Efrain Rivaso, PT [facility] [address] [place] [address] 08/27/2024 14:16:05 08/27/2024 15:26:24 Cervical radiculopathy 74806672 M54.12 [id number] Efrain Vladimir, PT [facility] [address] [place] [address] 08/29/2024 14:02:19 08/29/2024 15:48:11 Cervical radiculopathy 20242120 M54.12 [id number] Efrain Lealonso, PT [facility] [address] [place] [address] 09/01/2024 13:35:22 09/01/2024 15:20:21 Cervical radiculopathy 66021532 M54.12 [id number] Efrain Vladimir, PT [facility] [address] [place] [address] 09/10/2024 13:56:10 09/10/2024 15:30:52 Cervical radiculopathy 29476200 M54.12 [id number] Efrain Vladimir, PT [facility] [address] [place] [address] 09/12/2024 13:58:24 09/12/2024 15:52:30 Cervical radiculopathy 45123126 M54.12 [id number] Efrain Vladimir, PT [facility] [address] [place] [address] 09/15/2024 14:23:29 09/15/2024 15:26:44 Cervical radiculopathy 10003005 M54.12 [id number] Efrain Rivaso, PT [facility] [address] [place] [address] 09/19/2024 13:25:22 09/19/2024 15:11:19 Cervical radiculopathy [id number] M54.12 [id number] Efrain Rivaso, PT [facility] [address] [place] [address] 09/22/2024 14:01:11 09/22/2024 15:48:27 Cervical radiculopathy 80022838 M54.12 [id number] Efrain Rivaso, PT [facility] [address] [place] [address] 09/24/2024 14:04:43 09/24/2024 15:11:42 Cervical radiculopathy 28854740 M54.12 Health Concerns Section Related Observation LastModified by Organization Detai ls LastModified Time None Recorded Concern Status LastModified by Organization Details LastModified Time None Recorded Advance Directives Directive None Recorded Payers Encounter Date Sequence Insurance Name Policy Number Policy Teixeira Covered Member ID Teixeira Member ID Guarantor Name 09/12/[address] [facility] [id number] Jose J Portillo [id number] Jose J Portillo 09/15/[address] [facility] [id number] Jose J Portillo [id number] Jose J Portillo 09/19/[address] [facility] [id number] Jose J Leale [id number] Jose J Levy 09/22/[address] [facility] [id number] Hernando Levy [id number] Jose J Levy 09/24/[address] [facility] [id number] Jose J Pennington Levy [id number] Jose J Levy Notes Date Note Type Note Provider Name and Address Organization Details Recorded Time 09/12/2024 text/html Pt states he was doing some small electrical work (replacing outlets) at home and felt a little more numbness L thumb afterwards. Efrain Gilbert, PT [address], [place], [address], [facility] 09/17/2024 23:33:36 09/15/2024 text/html Pt states he was doing some small electrical work (replacing outlets) at home and felt a little more numbness L thumb afterwards. Efrain Gilbert, PT [address], [place], [address], [facility] 09/17/2024 23:27:35 09/19/2024 text/html Pt states feelin g a little better with L thumb numbness but still present, neck feels stiff on L. Efrain Gilbert PT [address], [place], [address], [facility] 09/23/2024 11:56:52 09/22/2024 text/html Pt states overal l L neck feeling better but still stiff feeling tight vs R. Efrain Gilbert PT [address], [place], [address], [facility] 09/23/2024 23:12:39 09/24/2024 text/html Pt states L neck feeling stiff today but overall less pain, pt states 2nd-4th digits not getting numb, however thumb still getting numb. Efrain Gilbert, PT [address], [place], [address], [facility] 09/28/2024 22:40:24
== END 2025-04-23 09:13 | disposition home or self-care (01) ==
LOC: HO.HOSX 09:12
PROVIDERS: Visit Provider Orthopaedic Surgery
DX: Z13.89 Encounter for screening for other disorder (principal)

== ENCOUNTER 2025-04-29 09:35 | Outpatient (REF) | payer OTHER, SELFPAY ==
--- NOTE | ~2025-04-29 | XR_ITS ---
EXAMINATION: XR SHOULDER, LEFT CLINICAL INFORMATION: M25.512 - Pain in left shoulder COMPARISON: September 13, 2023 TECHNIQUE: AP external rotation, Grashey, scapular Y views of the left shoulder FINDINGS: There is mild expansion of the proximal humeral metadiaphysis and vague groundglass density that could be related to a remote healed fracture. There is also patchy reticulated sclerotic appearance to the inferomedial margin of scapula, similar to the prior. Chronic corticated oval ossification is again seen located in the subacromial space, unchanged. AC joint is intact and unremarkable. XR/XR shoulder LT min 2V IMPRESSION: Vague patchy groundglass and reticular density along the inferomedial border of scapula and proximal metadiaphysis the humerus could be remote posterior posttraumatic in nature, but Paget's disease is in the differential. Electronically signed by: Amauri Orlando MD 04/29/2025 05:38 PM EDT
--- NOTE | ~2025-04-29 | XR_ITS ---
EXAMINATION: XR CERVICAL SPINE CLINICAL INFORMATION: M54.12 - Radiculopathy, cervical region COMPARISON: None available. TECHNIQUE: 3 views of the cervical spine were obtained. FINDINGS: There is a minimal right convex scoliosis. There is a normal lordosis. There is limited visualization of C6-7 and C7-T1 on the lateral projections, including the 2 swimmer's views, secondary to obscuration from the patient shoulders. The atlantoaxial junction and C1-2 articulation are intact. There are no fractures, compression deformity, or suspicious bone lesions. There is no subluxation identified. Normal facet alignment. Mild degenerative facet changes bilaterally. Discs demonstrate minimal disc space narrowing diffusely. No prevertebral soft tissue abnormality. There are surgical clips along the left carotid region. Lung apices are clear. XR/XR cervical spine 2V IMPRESSION: 1. No acute abnormalities of the cervical spine. Technically limited visualization of C6-7 and C7-T1 on the lateral projections and swimmer's views. 2. Mild degenerative cervical spondylosis. Electronically signed by: Jf Crespo MD 04/30/2025 08:26 AM EDT
== END 2025-04-29 09:36 | disposition home or self-care (01) ==
LOC: HO.HMGCX 09:35
PROVIDERS: PCP Internal Medicine; Visit Provider Internal Medicine
DX: M54.12 Radiculopathy, cervical region (principal); M25.512 Pain in left shoulder
CPT/HCPCS: 72040; 73030

== ENCOUNTER 2025-04-29 09:35 | Outpatient (AMB) | payer OTHER, SELFPAY ==
[2025-04-29 09:39] VITALS: BP 136/94; PULSE 90; RESP 16; TEMP 36.8; O2SAT 96; BMI 34.6
--- NOTE | 2025-04-29 09:39 | AM.OFFWIN_ITS ---
Intake Vital Signs 04/29/25 09:39 Height 5 ft 10 in Weight 241 lb BMI 34.6 BP 136/94 H Blood Pressure Location Rt brachial Position Sitting Respiration 16 Pulse 90 Pulse Source Pulse Oximeter Temp 98.3 F Temp Source Oral Pulse Oximetry (%) 96 Oxygen Delivery Method Room Air Intake Visit Reasons: EP LT shoulder/neck pain Intake Note: Pt is here today c/o Lt shoulder and neck pain on going: went to a walkin on sunday and was given steroids and pain med: No improvement Patient Tobacco Use Status: Former Tobacco user Allergies No Known Allergies Allergy (Verified 04/29/25 09:52) Medication List - Last Reconciled 04/29/25 by Renetta Blackman MD aspirin 81 mg PO DAILY atorvastatin 80 mg PO DAILY blood pressure monitor As directed levothyroxine 175 mcg PO DAILY methocarbamol 500 mg PO TID methylprednisolone 0 mg PO zolpidem 5 mg PO BEDTIME PRN HPI EP LT shoulder/neck pain HPI Details History - The patient is a 54-year-old male pres enting with neck and shoulder pain management. - He reports ongoing neck issues with an exacerbation leading to immobility on Sunday morning. - He was previously diagnosed with shoul laurie osteoarthritis and has received x- rays showing arthritic changes in the left shoulder. - The patient reports left-hand numbness , which the physician attributes to cervical radiculopathy, likely from a pinched nerve in the neck. - Medications previously started include a steroid regimen that is near completion and methocarbamol for muscle relaxation. Through a different walk-in clinic a week ago - Symptoms reportedly improved with init ial treatment but have recently resurged, negatively affecting the patient's ability to work. - He follows up with an orthopedic surge on for evaluation, primarily for neck and shoulder pain, on the . 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 - Employs both hands on the wheel [employer]. - His work ability is currently reduced due to pain and functional impairment. Diagnostic Results: - Shoulder x-ray in 2022 showed arthriti c changes in the left shoulder. Problem List - Cervical Radiculopathy - Shoulder Osteoarthritis Patient Instructions - take Diclofenac as prescribed with marin d to avoid stomach upset. - Take Baclofen as directed, primarily a t bedtime or while not driving. - Complete the neck and shoulder x-ray a s ordered. - Follow up with an orthopedic surgeon a s scheduled. - Obtain a doctor's note as needed for w orkplace documentation. Review of Systems - General: No fever no chills - Neurological: No headaches no dizziness - Ear nose throat: No sore throat no hearing difficulty no ear pain - Cardiovascular: No syncope, no chest pain, no palpitations Physical Exam General: No acute distress HEENT: No acute findings Neck: Limited range of motion, pain on movement, history of surgery with scar tissue left side Respiratory system: Able to talk in full sentences, Extremities: Able to lift both shoulders left shoulder with limited range of motion chronic CLIENT SERVICE EXECUTIVE: Alert awake oriented x3 motor sensory intact Skin: Normal turgor PFSH Medical History Vitamin D deficiency Obstructive sleep apnea hypopnea, mild Nocturnal hypoxemia Chronic left shoulder pain Essential hypertension Fall (on)(from) sidewalk curb, initial encounter Impaired fasting glucose Nocturia Primary insomnia Muscle spasticity History of tongue cancer Dyslipidemia Acquired hypothyroidism Rhinitis, allergic Surgical History History of herniorrhaphy Hx of colonoscopy History of surgery History of umbilical hernia Family History Father Unknown family medical history Mother COPD (chronic obstructive pulmonary disease) Son Juvenile onset diabetes mellitus with hyperosmolar coma Social History Housing: House Alcohol intake: current Alcohol intake frequency: a few times a month Patient Tobacco Use Status: Former Tobacco user Years Smoked: 2 yrs e-Cigarette/Vaping Use: Never Used service: No Current occupational status: employed Cognitive needs: No Hearing needs: No Vision needs: Yes Physical Exam Vital Signs: Last Vital Signs Temp 98.3 F 04/29/25 09:39 Pulse 90 04/29/25 09:39 Resp 16 04/29/25 09:39 BP 136/94 H 04/29/25 09:39 Pulse Ox 96 04/29/25 09:39 Oxygen Delivery Method Room Air 04/29/25 09:39 BMI result Body Mass Index 34.6 Assessment & Plan Assessment & Plan (1) Radiculitis of left cervical region: Code(s): M54.12 - Radiculopathy, cervical region (2) Left shoulder pain: Code(s): M25.512 - Pain in left shoulder Qualifiers: Chronicity: chronic Qualified Code(s): M25.512 - Pain in left shoulder; G89.29 - Other chronic pain Plan History - The patient is a 54-year-old male presenting with neck and shoulder pain management. - He reports ongoing neck issues with an exacerbation leading to immobility on Sunday morning. - He was previously diagnosed with shoulder osteoarthritis and has received x- rays showing arthritic changes in the left shoulder. - The patient reports left-hand numbness, which the physician attributes to cervical radiculopathy, likely from a pinched nerve in the neck. - Medications previously started include a steroid regimen that is near completion and methocarbamol for muscle relaxation. Through a different walk-in clinic a week ago - Symptoms reportedly improved with initial treatment but have recently resurged, negatively affecting the patient's ability to work. - He follows up with an orthopedic surgeon for evaluation, primarily for neck and shoulder pain, on the . 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 - Employs both hands on the wheel typically. - His work ability is currently reduced due to pain and functional impairment. Diagnostic Results: - Shoulder x-ray in 2022 showed arthritic changes in the left shoulder. Problem List - Cervical Radiculopathy - Shoulder Osteoarthritis Patient Instructions - take Diclofenac as prescribed with food to avoid stomach upset. - Take Baclofen as directed, primarily at bedtime or while not driving. - Complete the neck and shoulder x-ray as ordered. - Follow up with an orthopedic surgeon as scheduled. - Obtain a doctor's note as needed for workplace documentation. Orders: Orders XR shoulder LT min 2V Today M25.512 - Pain in left shoulder XR cervical spine 2V Today M54.12 - Radiculopathy, cervical region Medications: New diclofenac sodium 75 mg PO BID 10 days 20 tabs 0RF pain baclofen 10 mg PO BID 30 tabs 0RF Discontinued methylprednisolone Discontinued Reason: Change Referral Type PO Coding Level of Care Code Est Pt Level 3 (32811) Diagnoses Radiculitis of left cervical region M54.12 Chronic left shoulder pain M25.512; G89.29 Chronicity: chronic
--- OUTSIDE RECORDS SUMMARY | 2025-04-29 10:00 | XMS_ITS | Data Portability ---
Author Organization [place] - [facility], [facility] Address [address] [place] [address] Assessment Encounter Date Assessment Date Assessment LastModified [...] Name and Address Organization Details Recorded Time 45473 Therapeutic Exercise (1:1) completed Efrain Vladimir, PT [address], [place], [address], [facility] 09/23/2024 23:08:46 [id number]: Hot or Cold Pack completed Efrain Vladimir, PT [address], [place], [address], [facility] 09/23/2024 23:08:46 90528: Manual therapy completed Efrain Vladimir, PT [address], [place], [address], [facility] 09/23/2024 23:08:46 [id number] Therapeutic Exercise (1:1) completed Efrain Vladimir, PT [address], [place], [address], [facility] 09/19/2024 13:42:26 04426: Hot or Cold Pack completed Efrain Vladimir, PT [address], [place], [address], [facility] 09/19/2024 13:42:26 28967: Manual therapy completed Efrain Vladimir, PT [address], [place], [address], [facility] 09/19/2024 13:42:26 [id number] Therapeutic Exercise (1:1) completed Efrain Vladimir, PT [address], [place], [address], [facility] 09/17/2024 23:27:07 10/21/202 4 93612: Hot or Cold Pack completed Efrain Vladimir, PT [address], [place], [address], [facility] 09/17/2024 01:17:58 4 73519: Manual therapy completed Efrain Vladimir, PT [address], [place], [address], [facility] 09/17/2024 23:27:04 4 92714 Therapeutic Exercise (1:1) completed Efrain Vladimir, PT [address], [place], [address], [facility] 09/16/2024 14:57:31 4 53625: Hot or Cold Pack completed Efrain Vladimir, PT [address], [place], [address], [facility] 09/16/2024 14:57:30 4 55114: Manual therapy completed Efrain Vladimir, PT [address], [place], [address], [facility] 09/16/2024 14:57:31 21329 Therapeutic Exercise (1:1) completed Efrain Vladimir, PT [address], [place], [address], [facility] 09/12/2024 00:08:08 4 89959: Hot or Cold Pack completed Efrain Vladimir, PT [address], [place], [address], [facility] 09/12/2024 00:08:08 43600: Manual therapy completed Efrain Vladimir, PT [address], [place], [address], [facility] 09/12/2024 00:08:08 [id number] Therapeutic Exercise (1:1) completed Efrain Vladimir, PT [address], [place], [address], [facility] 09/03/2024 00:04:36 4 68805: Hot or Cold Pack completed Efrain Vladimir, PT [address], [place], [address], [facility] 09/03/2024 00:04:01 4 83129: Manual therapy completed Efrain Vladimir, PT [address], [place], [address], [facility] 09/03/2024 00:04:32 4 08832 Therapeutic Exercise (1:1) completed Efrain Vladimir, PT [address], [place], [address], [facility] 08/31/2024 22:38:46 4 27861: Manual therapy completed Efrain Vladimir, PT [address], [place], [address], [facility] 08/31/2024 22:38:46 4 43446 Therapeutic Exercise (1:1) completed Efrain Vladimir, PT [address], [place], [address], [facility] 08/29/2024 01:19:52 4 08545: Manual therapy completed Efrain Vladimir, PT [address], [place], [address], [facility] 08/29/2024 01:19:52 4 00031 Therapeutic Exercise (1:1) completed Efrain Vladimir, PT [address], [place], [address], [facility] 08/24/2024 22:14:27 4 26372: Manual therapy completed Efrain Vladimir, PT [address], [place], [address], [facility] 08/24/2024 22:14:39 4 45896 Therapeutic Exercise (1:1) completed Efrain Vladimir, PT [address], [place], [address], [facility] 08/19/2024 12:27:21 4 84510: Low complexity PT Eval completed Efrain Vladimir, PT [address], [place], [address], [facility] [...] SNOMED-CT Code Diagnosis ICD10 Code Diagnosis Note [id number] Efrain Vladimir, PT [facility] [address] [place] [address] 08/18/2024 14:15:38 08/18/2024 16:10:13 Cervical radiculopathy [id number] M54.12 [id number] Efrain Vladimir, PT [facility] [address] [place] [address] 08/22/2024 14:08:03 08/22/2024 15:45:08 Cervical radiculopathy 42213654 M54.12 [id number] Efrain Rivaso, PT [facility] [address] [place] [address] 08/27/2024 14:16:05 08/27/2024 15:26:24 Cervical radiculopathy [id number] M54.12 [id number] Efrain Vladimir, PT [facility] [address] [place] [address] 08/29/2024 14:02:19 08/29/2024 15:48:11 Cervical radiculopathy 70480939 M54.12 [id number] Efrain Lealonso, PT [facility] [address] [place] [address] 09/01/2024 13:35:22 09/01/2024 15:20:21 Cervical radiculopathy [id number] M54.12 [id number] Efrain Vladimir, PT [facility] [address] [place] [address] 09/10/2024 13:56:10 09/10/2024 15:30:52 Cervical radiculopathy 24860275 M54.12 [id number] Efrain Vladimir, PT [facility] [address] [place] [address] 09/12/2024 13:58:24 09/12/2024 15:52:30 Cervical radiculopathy 47073142 M54.12 [id number] Efrain Vladimir, PT [facility] [address] [place] [address] 09/15/2024 14:23:29 09/15/2024 15:26:44 Cervical radiculopathy 36302538 M54.12 [id number] Efrain Rivaso, PT [facility] [address] [place] [address] 09/19/2024 13:25:22 09/19/2024 15:11:19 Cervical radiculopathy 88202038 M54.12 [id number] Efrain Rivaso, PT [facility] [address] [place] [address] 09/22/2024 14:01:11 09/22/2024 15:48:27 Cervical radiculopathy 13742303 M54.12 [id number] Efrain Rivaso, PT [facility] [address] [place] [address] 09/24/2024 14:04:43 09/24/2024 15:11:42 Cervical radiculopathy [id number] M54.12 Health Concerns Section Related Observation LastModified by Organization Detai ls LastModified Time None Recorded Concern Status LastModified by Organization Details LastModified Time None Recorded Advance Directives Directive None Recorded Payers Encounter Date Sequence Insurance Name Policy Number Policy Teixeira Covered Member ID Teixeira Member ID Guarantor Name 09/12/2024 1 [facility] [id number] Jose J Portillo [id number] Jose J Portillo 09/15/2024 1 [facility] [id number] Jose J Portillo [id number] Jose J Portillo 09/19/2024 1 [facility] [id number] Jose J Leale [id number] Jose J Fillmore 09/22/2024 1 [facility] [id number] Hernando Fillmore [id number] Jose J Fill[place] 09/24/2024 1 [facility] [id number] Jose J Pennington Fill[place] [id number] Jose J Fill[place] Notes Date Note Type Note Provider Name and Address Organization Details Recorded Time 09/12/2024 text/html Pt states he was doing some small electrical work (replacing outlets) at home and felt a little more numbness L thumb afterwards. Efrain Gilbert, PT [address], [place], [address], [facility] 09/17/2024 23:33:36 09/15/2024 text/html Pt states he was doing some small electrical work (replacing outlets) at home and felt a little more numbness L thumb afterwards. Efrain Gilbert, PT [address], [place], [address], [facility] 09/17/2024 23:27:35 09/19/2024 text/html Pt states feelin g a little better with L thumb numbness but still present, neck feels stiff on L. Efrain Gilbert PT [address], [place], [address], [facility] 09/23/2024 11:56:52 09/22/2024 text/html Pt states overal l L neck feeling better but still stiff feeling tight vs R. Efrain Gilbert PT [address], [place], [address], [facility] 09/23/2024 23:12:39 09/24/2024 text/html Pt states L neck feeling stiff today but overall less pain, pt states 2nd-4th digits not getting numb, however thumb still getting numb. Efrain Gilbert, PT [address], [place], [address], [facility] 09/28/2024 22:40:24
== END 2025-04-29 10:09 | disposition home or self-care (01) ==
PROVIDERS: PCP Internal Medicine; Visit Provider Internal Medicine
DX: M54.12 Radiculopathy, cervical region (principal); M25.512 Pain in left shoulder; G89.29 Other chronic pain

== ENCOUNTER → 2025-04-29 10:13 | Outpatient (BNV) | payer OTHER, SELFPAY | PROVIDERS: PCP Internal Medicine; Visit Provider Radiology Diagnostic Radiology | DX: M54.12 Radiculopathy, cervical region (principal) | CPT/HCPCS: 72040 ==

== ENCOUNTER 2025-04-30 13:32 | Outpatient (AMB) | payer OTHER, SELFPAY ==
[2025-04-30 13:48] VITALS: BP 148/90; PULSE 89; O2SAT 97; BMI 34.8
--- NOTE | 2025-04-30 13:48 | A.OFFVIS_ITS ---
Vital Signs 04/30/25 13:48 Height 5 ft 10 in Weight 242 lb 8.136 oz BMI 34.8 BP 148/90 H Blood Pressure Location Rt brachial Position Sitting Pulse 89 Pulse Source Pulse Oximeter Pulse Oximetry (%) 97 Oxygen Delivery Method Room Air Intake Visit Reasons: Obstructive sleep apnea Intake Note: Pt is here as a new patient for JOHNNY, girlfriend states he does snore, urology ordered the sleep study. Manager Card Required: No Allergies No Known Allergies Allergy (Verified 04/30/25 14:02) Medication List - Last Reconciled 04/30/25 by Danika Villatoro MD aspirin 81 mg PO DAILY atorvastatin 80 mg PO DAILY baclofen 10 mg PO BID blood pressure monitor As directed diclofenac sodium 75 mg PO BID 10 days levothyroxine 175 mcg PO DAILY zolpidem 5 mg PO BEDTIME PRN HPI HPI Obstructive sleep apnea: Details: This 54 years old gentleman is here to go over abnormal sleep study, and for management of his. Sleep apnea He is moderately obese. He is not aware of snoring. Does wake up a few times during the night. He denies any daytime sleepiness. His home-based sleep study has shown a borderline degree of sleep apnea, mostly related to sleeping in supine position. Also has nocturnal hypoxemia with average O2 sat of 91% and O2 sat below 88% for 8 minutes He denies history of chronic lung disease. He smoked only in school age , , with friends 1 or 2 cigarettes on occasion. He denies any dyspnea on exertion. And also denies any wheezing or cough. He sleeps for 6-7 hours every night. Wakes up fresh and denies any daytime sleepiness except when he is taking some pain meds. He has had a mass resected from the left side of the neck and had radiation therapy. [facility] Medical History Vitamin D deficiency Obstructive sleep apnea hypopnea, mild Nocturnal hypoxemia Chronic left shoulder pain Essential hypertension Fall (on)(from) sidewalk curb, initial encounter Impaired fasting glucose Nocturia Primary insomnia Muscle spasticity History of tongue cancer Dyslipidemia Acquired hypothyroidism Rhinitis, allergic Surgical History History of herniorrhaphy Hx of colonoscopy History of surgery History of umbilical hernia Family History Father Unknown family medical history Mother COPD (chronic obstructive pulmonary disease) Son Juvenile onset diabetes mellitus with hyperosmolar coma Social History Housing: House Alcohol intake: current Alcohol intake frequency: a few times a month Patient Tobacco Use Status: Former Tobacco user Years Smoked: 2 yrs e-Cigarette/Vaping Use: Never Used service: No Current occupational status: employed Cognitive needs: No Hearing needs: No Vision needs: Yes Review of Systems Const All systems reviewed & are unremarkable except as noted in HPI and below Eyes Reports no additional complaints ENT Reports no additional complaints Card Denies chest pain, Denies syncope and Denies irregular heart rhythm Resp Reports as per HPI GI Reports no additional complaints Reports nocturia Musc Reports arthralgias (Left shoulder, and left side of the neck) Skin/Breast Reports system reviewed and no additional complaints, except as documented Neuro Reports no additional complaints and Denies syncope Psych Reports no additional complaints Endo Reports no additional complaints Grabiel/Lymph Reports no additional complaints Aller/Immun Reports no additional complaints Physical Exam Vital Signs: Last Vital Signs Pulse 89 04/30/25 13:48 BP 148/90 H 04/30/25 13:48 Pulse Ox 97 04/30/25 13:48 Oxygen Delivery Method Room Air 04/30/25 13:48 BMI result Body Mass Index 34.8 Const General: healthy appearing (Except for being overweight), comfortable, no acute distress, alert and awake Orientation/consciousness: patient oriented x3 HEENT Head: Yes normal to inspection General nose exam: No nasal polyps present and No nasal discharge present Face and sinus: Yes sinuses nontender Mouth: oropharynx normal Throat: Yes posterior oropharynx normal Eyes General: appearance normal, both eyes and all related structures Neck Neck: Yes normal visual inspection, Yes full ROM, Yes no lymphadenopathy, Yes trachea midline, Yes no JVD and Yes other (There is volume loss and minimal scarring of the skin on the left side. ) Thyroid: Thyroid normal Chest Chest palpation & inspection: normal inspection of the chest, normal palpation of entire chest wall and no tenderness Resp Effort & Inspection: normal respiratory effort Auscultation: clear to auscultation bilaterally, no rales and no wheezes Cardio Palpation: normal PMI Rate: regular rate Rhythm: regular rhythm Heart sounds: no gallops and no murmurs Peripheral pulses: Peripheral pulses 2+ throughout GI Palpation (GI): Soft to palpation, nontender, No hepatosplenomegaly present and no masses Auscultation: normal bowel sounds Back/Spine/Pelvis Thoracic/Lumbar Spine: thoracic and lumbar spine normal to inspection Skin General skin exam: no rashes or lesions noted Neuro General: patient oriented x3 and no focal motor deficits Cranial nerves: Yes CN's II-XII intact bilaterally Extrem General: Yes normal to inspection, Yes no clubbing, cyanosis or edema and Yes no calf tenderness Psych Appearance: grossly normal and well kempt Speech and movement: Normal speech and movement present Results Reviewed Results Reviewed: Home-based sleep study on 02/29/2024 is reviewed. Total sleep time AHI 5, predominantly in supine position, and snoring is for only 2% of the sleep time. There is nocturnal hypoxemia with average O2 sat 91% and O2 sat below 88% for 8 minutes. Assessment & Plan Assessment & Plan (1) Obstructive sleep apnea hypopnea, mild: Comment: Total sleep time AHI of 5 is consistent with very mild or borderline JOHNNY. Predominantly it is in supine position. Code(s): G47.33 - Obstructive sleep apnea (adult) (pediatric) Category: Medical Plan: For management discussed with the patient and explained about conservative measures versus C PAP therapy. He would prefer the conservative measures. So I advised him the followed: 1- lose at least 5-10 lb of weight 2- make sure to sleep in lateral position even if you have to use a large pillow are a wedge in the center of the bed He thinks that he can do that easily. (2) Nocturnal hypoxemia: Comment: Nocturnal hypoxemia as described above may be due to some technical issue. He has history of minimal smoking in the remote past, and may have mild obstructive airway disorder. But that is not serious enough to cause nocturnal hypoxemia Code(s): G47.34 - Idiopathic sleep related nonobstructive alveolar hypoventilation Category: Medical Plan: I told him that we should do complete pulmonary function test to make sure that his lung volumes are okay and diffusion capacity is okay. Orders: Orders PFT pulmonary function test Today G47.33 - Obstructive sleep apnea (adult) (pediatric), G47.34 - Idiopathic sleep related nonobstructive alveolar hypoventilation Coding Level of Care Code New Pt Level 3 (51012) Diagnoses Obstructive sleep apnea hypopnea, mild G47.33 Nocturnal hypoxemia G47.34
--- OUTSIDE RECORDS SUMMARY | 2025-04-30 16:03 | XMS_ITS | Data Portability ---
Author Organization [place] - [facility], [facility] Address [address] [place] [address] Assessment Encounter Date Assessment Date Assessment LastModified [...] Organization Details Last Modified Time Details Appointments NEW PATIENT 15 2024 10:00A M Cristal bella PA-C Not available Not available Not available Lab None recorded . Referral None recorded . Procedures None recorded . Surgeries None recorded . Imaging None recorded . Medication Orders None recorded . Patient TargetsNo targets recorded. Patient InstructionsNo instructions recorded. Reason for Referral None Reported. Procedures Surgical History Date Name Laterality Status Provider Name and Address Organization Details Recorded Time 34254 Therapeutic Exercise (1:1) completed Efrain Vladimir, PT [address], [place], [address], [facility] 09/23/2024 23:08:46 97181: Hot or Cold Pack completed Efrain Vladimir, PT [address], [place], [address], [facility] 09/23/2024 23:08:46 67896: Manual therapy completed Efrain Vladimir, PT [address], [place], [address], [facility] 09/23/2024 23:08:46 39490 Therapeutic Exercise (1:1) completed Efrain Vladimir, PT [address], [place], [address], [facility] 09/19/2024 13:42:26 79112: Hot or Cold Pack completed Efrain Vladimir, PT [address], [place], [address], [facility] 09/19/2024 13:42:26 07221: Manual therapy completed Efrain Vladimir, PT [address], [place], [address], [facility] 09/19/2024 13:42:26 53602 Therapeutic Exercise (1:1) completed Efrain Vladimir, PT [address], [place], [address], [facility] 09/17/2024 23:27:07 4 91917: Hot or Cold Pack completed Efrain Vladimir, PT [address], [place], [address], [facility] 09/17/2024 01:17:58 4 66901: Manual therapy completed Efrain Vladimir, PT [address], [place], [address], [facility] 09/17/2024 23:27:04 4 99786 Therapeutic Exercise (1:1) completed Efrain Vladimir, PT [address], [place], [address], [facility] 09/16/2024 14:57:31 4 71919: Hot or Cold Pack completed Efrain Vladimir, PT [address], [place], [address], [facility] 09/16/2024 14:57:30 4 47283: Manual therapy completed Efrain Vladimir, PT [address], [place], [address], [facility] 09/16/2024 14:57:31 65596 Therapeutic Exercise (1:1) completed Efrain Vladimir, PT [address], [place], [address], [facility] 09/12/2024 00:08:08 21838: Hot or Cold Pack completed Efrain Vladimir, PT [address], [place], [address], [facility] 09/12/2024 00:08:08 74785: Manual therapy completed Efrain Vladimir, PT [address], [place], [address], [facility] 09/12/2024 00:08:08 10/07/202 4 69655 Therapeutic Exercise (1:1) completed Efrain Vladimir, PT [address], [place], [address], [facility] 09/03/2024 00:04:36 4 47655: Hot or Cold Pack completed Efrain Vladimir, PT [address], [place], [address], [facility] 09/03/2024 00:04:01 4 41691: Manual therapy completed Efrain Vladimir, PT [address], [place], [address], [facility] 09/03/2024 00:04:32 4 55024 Therapeutic Exercise (1:1) completed Efrain Vladimir, PT [address], [place], [address], [facility] 08/31/2024 22:38:46 4 28390: Manual therapy completed Efrain Vladimir, PT [address], [place], [address], [facility] 08/31/2024 22:38:46 4 16662 Therapeutic Exercise (1:1) completed Efrain Vladimir, PT [address], [place], [address], [facility] 08/29/2024 01:19:52 4 79067: Manual therapy completed Efrain Vladimir, PT [address], [place], [address], [facility] 08/29/2024 01:19:52 4 45085 Therapeutic Exercise (1:1) completed Efrain Vladimir, PT [address], [place], [address], [facility] 08/24/2024 22:14:27 4 92570: Manual therapy completed Efrain Vladimir, PT [address], [place], [address], [facility] 08/24/2024 22:14:39 4 06646 Therapeutic Exercise (1:1) completed Efrain Rivaso, PT [address], [place], [address], [facility] 08/19/2024 12:27:21 4 78969: Low complexity PT Eval completed Efrain Rivaso, PT [address], [place], [address], [facility] 08/19/2024 12:27:27 Imaging Results None recorded. Procedure Notes None recorded. Medical Equipment None Reported. Vitals None Recorded Social History None recorded. Functional Status None recorded. Mental Status None recorded. Family History Nothing Reported. Medical History No medical history recorded. Past Encounters Encounter ID Performer Location Encounter Start Date Encounter Closed Date Diagnosis/Indication Diagnosis SNOMED-CT Code Diagnosis ICD10 Code Diagnosis Note [id number] Efrain Rivaso, PT [facility] [address] [place] [address] 08/18/2024 14:15:38 08/18/2024 16:10:13 Cervical radiculopathy 06912774 M54.12 [id number] Efrain Rivaso, PT [facility] [address] [place] [address] 08/22/2024 14:08:03 08/22/2024 15:45:08 Cervical radiculopathy 41869014 M54.12 [id number] Efrain Lealonso, PT [facility] [address] [place] [address] 08/27/2024 14:16:05 08/27/2024 15:26:24 Cervical radiculopathy 30380040 M54.12 [id number] Efrain Lealonso, PT [facility] [address] [place] [address] 08/29/2024 14:02:19 08/29/2024 15:48:11 Cervical radiculopathy 36618709 M54.12 [id number] Efrain Vladimir, PT [facility] [address] [place] [address] 09/01/2024 13:35:22 09/01/2024 15:20:21 Cervical radiculopathy 09748805 M54.12 [id number] Efrain Rivaso, PT [facility] [address] [place] [address] 09/10/2024 13:56:10 09/10/2024 15:30:52 Cervical radiculopathy 94437215 M54.12 [id number] Efrain Rivaso, PT [facility] [address] [place] [address] 09/12/2024 13:58:24 09/12/2024 15:52:30 Cervical radiculopathy 31869083 M54.12 [id number] Efrain Rivaso, PT [facility] [address] [place] [address] 09/15/2024 14:23:29 09/15/2024 15:26:44 Cervical radiculopathy 23621446 M54.12 [id number] Efrain Rivaso, PT [facility] [address] [place] [address] 09/19/2024 13:25:22 09/19/2024 15:11:19 Cervical radiculopathy 26413363 M54.12 [id number] Efrain Rivaso, PT [facility] [address] [place] [address] 09/22/2024 14:01:11 09/22/2024 15:48:27 Cervical radiculopathy 24829222 M54.12 [id number] Efrain Rivaso, PT [facility] [address] [place] [address] 09/24/2024 14:04:43 09/24/2024 15:11:42 Cervical radiculopathy 22830116 M54.12 Health Concerns Section Related Observation LastModified by Organization Detai ls LastModified Time None Recorded Concern Status LastModified by Organization Details LastModified Time None Recorded Advance Directives Directive None Recorded Payers Encounter Date Sequence Insurance Name Policy Number Policy Teixeira Covered Member ID Teixeira Member ID Guarantor Name 09/12/2024 1 [facility] [id number] Jose J Portillo [id number] Jose J Portillo 09/15/2024 1 [facility] [id number] Jose J Portillo [id number] Jose J Marietta 09/19/2024 1 [facility] [id number] Hernando Marietta [id number] Jose J Marietta 09/22/2024 1 [facility] [id number] Hernando Marietta [id number] Jose J Marietta 09/24/2024 1 [facility] [id number] Jose J Pennington Marietta [id number] Jose J Marietta Notes Date Note Type Note Provider Name and Address Organization Details Recorded Time 09/12/2024 text/html Pt states he was doing some small electrical work (replacing outlets) at home and felt a little more numbness L thumb afterwards. Efrain Gilbert, PT [address], [place], [address], [facility] 09/17/2024 23:33:36 09/15/2024 text/html Pt states he was doing some small electrical work (replacing outlets) at home and felt a little more numbness L thumb afterwards. Efrain Gilbert, PT [address], [place], [address], [facility] 09/17/2024 23:27:35 09/19/2024 text/html Pt states feelin g a little better with L thumb numbness but still present, neck feels stiff on L. Efrain Gilbert, PT [address], [place], [address], [facility] 09/23/2024 11:56:52 09/22/2024 text/html Pt states overal l L neck feeling better but still stiff feeling tight vs R. Efrain Gilbert, PT [address], [place], [address], [facility] 09/23/2024 23:12:39 09/24/2024 text/html Pt states L neck feeling stiff today but overall less pain, pt states 2nd-4th digits not getting numb, however thumb still getting numb. Efrain Gilbert, PT [address], [place], [address], [facility] 09/28/2024 22:40:24
== END 2025-04-30 14:26 | disposition home or self-care (01) ==
LOC: HO.HPS 13:33
PROVIDERS: PCP Internal Medicine; Visit Provider Internal Medicine
DX: G47.33 Obstructive sleep apnea (adult) (pediatric) (principal); G47.34 Idiopathic sleep related nonobstructive alveolar hypoventilation
CPT/HCPCS: 99203

== ENCOUNTER → 2025-04-30 13:32 | Outpatient (BNVA) | payer OTHER, SELFPAY | PROVIDERS: PCP Internal Medicine; Visit Provider Internal Medicine ==

== ENCOUNTER 2025-05-27 12:58 | Outpatient (AMB) | payer OTHER, SELFPAY ==
--- NOTE | 2025-05-27 13:14 | MHC.PC.OV ---
Vital Signs 05/27/25 13:17 Height 5 ft 10 in Weight 242 lb BMI 34.7 BP 108/78 Blood Pressure Location Lt brachial Position Sitting Respiration 16 Pulse 96 Pulse Source Pulse Oximeter Temp 98.2 F Temp Source Oral Pulse Oximetry (%) 97 Oxygen Delivery Method Room Air Intake Visit Reasons: Fluctuating blood pressure Intake Note: Pt is here today Allergies No Known Allergies Allergy (Verified 05/27/25 13:42) Medication List - Last Reconciled 05/27/25 by Yokasta Rooney MD aspirin 81 mg PO DAILY atorvastatin 80 mg PO DAILY baclofen 10 mg PO BID blood pressure monitor As directed cyclobenzaprine 10 mg PO TID diclofenac sodium 75 mg PO BID 10 days gabapentin 300 mg PO TID levothyroxine 175 mcg PO DAILY lisinopril 5 mg PO DAILY zolpidem 5 mg PO BEDTIME PRN Tobacco use date assessed: 05/27/25 Dental Screening Dental Screen Date: 05/27/25 HPI Fluctuating blood pressure HPI Details 54-year-old male here today for follow-up on his hypertension. He has been having wide swings in his blood pressure readings over the last several months. Blood pressure is currently stable controlled on lisinopril 5 mg take once a day. Has been compliant with adhering to healthy eating habits and exercises regularly. Has been feeling well with no complaints at present time [facility] Medical History Vitamin D deficiency Obstructive sleep apnea hypopnea, mild Nocturnal hypoxemia Chronic left shoulder pain Essential hypertension Fall (on)(from) sidewalk curb, initial encounter Impaired fasting glucose Nocturia Primary insomnia Muscle spasticity History of tongue cancer Dyslipidemia Acquired hypothyroidism Rhinitis, allergic Surgical History History of herniorrhaphy Hx of colonoscopy History of surgery History of umbilical hernia Family History Father Unknown family medical history Mother COPD (chronic obstructive pulmonary disease) Son Juvenile onset diabetes mellitus with hyperosmolar coma Social History Housing: House Alcohol intake: current Alcohol intake frequency: a few times a month Patient Tobacco Use Status: Former Tobacco user Years Smoked: 2 yrs e-Cigarette/Vaping Use: Never Used service: No Current occupational status: employed Cognitive needs: No Hearing needs: No Vision needs: Yes Questionnaire Thrive Questionnaire Date Thrive assessed: 01/29/25 I am a: Patient What is your living situation today?: I have a steady place to live Within the past 12 months, did the food you bought not last and you didn't have the money to get more?: Never true Within the past 12 months, did you worry whether your food would run out before you got money to buy more?: Never true Do you have trouble paying for medicines?: No Do you have trouble getting transportation to medical appointments?: No Do you have trouble paying your heating and electricity bill?: No Do you have trouble taking care of your child, family member or friend?: No Do you have trouble with day-to-day activities such as bathing, preparing meals, shopping, managing finances, etc.?: No Are you currently unemployed and looking for a job?: No Are you interested in more education?: No Please select the resources that you would like help with: None Currently or been in a relationship where the following occur: No concerns reported THRIVE Score: 0 AUDIT C Alcohol Use Questionnaire (AUDIT-C) 1. How often do you have a drink containing alcohol?: Monthly or less Total Score: 1 REID-7 AMB Questionnaire REID-7 Date REID - 7 assessed: 02/05/25 Source: Developed by Drs. Salazar Martinez, Audrey Dorado, Trace Collins and colleagues, with an educational deisi from [employer]. Review of Systems Const All systems reviewed & are unremarkable except as noted in HPI and below Eyes Reports no additional complaints ENT Reports no additional complaints Card Denies chest pain, Denies syncope and Denies irregular heart rhythm Resp Reports as per HPI GI Reports no additional complaints Reports nocturia Musc Reports arthralgias (Left shoulder, and left side of the neck) Skin/Breast Reports system reviewed and no additional complaints, except as documented Neuro Reports no additional complaints and Denies syncope Psych Reports no additional complaints Endo Reports no additional complaints Grabiel/Lymph Reports no additional complaints Aller/Immun Reports no additional complaints Physical exam (Primary Care) Vital Signs: Last Vital Signs Temp 98.2 F 05/27/25 13:17 Pulse 96 05/27/25 13:17 Resp 16 05/27/25 13:17 BP 108/78 05/27/25 13:17 Pulse Ox 97 05/27/25 13:17 Oxygen Delivery Method Room Air 05/27/25 13:17 BMI result Body Mass Index 34.7 Tobacco/Smoking Status: Tobacco use Status Tobacco use date assessed 05/27/25 05/27/25 13:23 Patient Tobacco Use Status Former Tobacco user 05/27/25 13:14 e-Cigarette/Vaping Use Never Used 05/27/25 13:14 Thrive Assessment: Date of Thrive Assessment Date Thrive assessed 01/29/25 05/27/25 13:14 Currently or been in a relationship where the following occur: No concerns reported Const General: no acute distress Nutritional Appearance: obese Orientation/consciousness: patient oriented x3 HENAK General nose exam: Normal external nose present Face and sinus: Yes face symmetric Mouth: moist mucous membranes Eyes General: appearance normal, both eyes and all related structures Neck Other: Supple, no lymphadenopathy, thyroid gland nonpalpable Resp Auscultation: clear to auscultation bilaterally Cardio Other: S1-S2 present regular rate and rhythm GI Palpation (GI): Soft to palpation, nontender, no guarding and no masses Auscultation: normal bowel sounds Skin General skin exam: no rashes or lesions noted Neuro General: patient oriented x3, gait normal, moves all extremities, Normal light touch and pain sensation, CN's II-XI intact bilaterally and normal sensation to monofilament Extrem General: Yes full ROM, Yes no joint enlargement, Yes no pedal edema, Yes no calf tenderness and Yes normal gait Psych Appearance: grossly normal Mental Status: mental status grossly normal Speech and movement: Normal speech and movement present Affect: normal affect Attitude: cooperative Coding Level of Care Code Est Pt Level 4 (76759) Diagnoses Essential hypertension I10 Dyslipidemia E78.5 Assessment & Plan Assessment & Plan (1) Essential hypertension: Code(s): I10 - Essential (primary) hypertension Category: Medical Plan: Restarted back on lisinopril 5 mg per tablet, advised to continue blood pressure at home at least once a day and log blood pressure readings. If blood pressure consistently falls below 110/60, may decrease lisinopril dose to 2.5 mg daily. Reinforced importance of following a low-salt diet, will see him back for follow-up in 09/03/2025 after fasting labs are done (2) Dyslipidemia: Code(s): E78.5 - Hyperlipidemia, unspecified Category: Medical Plan: Continue with atorvastatin 80 mg daily, recheck fasting lipids in July 2025, orders already sent Medications: New lisinopril 5 mg PO DAILY 90 tabs 1RF
[2025-05-27 13:17] VITALS: BP 108/78; PULSE 96; RESP 16; TEMP 36.8; O2SAT 97; BMI 34.7
== END 2025-05-27 14:13 | disposition home or self-care (01) ==
PROVIDERS: PCP Internal Medicine; Visit Provider Internal Medicine
DX: I10 Essential (primary) hypertension (principal); E78.5 Hyperlipidemia, unspecified

== ENCOUNTER 2025-06-17 07:50 | Outpatient (REF) | payer OTHER, SELFPAY ==
[2025-06-17 07:46] VITALS: PULSE 96; O2SAT 96
--- NOTE | 2025-06-17 13:37 | PFT_ITS ---
Flows: FEV1: 102 % of predicted at 3.81 L FVC: 96 % of predicted at 4.59 L FEV1/FVC: 83 % Bronchodilator response: Absent Volumes: Total lung capacity: 86 % of predicted at 6.21 L Residual volume: 78 % of predicted at 1.62 L Slow vital capacity: 88 % of predicted at 4.59 L Expiratory reserve volume: 89 % of predicted at 1.23 L Diffusion capacity: Normal Impression: No obstructive or restrictive ventilatory defect. No bronchodilator response. Normal pulmonary function test. MTDD
== END 2025-06-17 07:51 | disposition home or self-care (01) ==
LOC: HO.RESP 07:50
PROVIDERS: Visit Provider Internal Medicine
DX: G47.33 Obstructive sleep apnea (adult) (pediatric) (principal); G47.34 Idiopathic sleep related nonobstructive alveolar hypoventilation
CPT/HCPCS: 94010; 94640; 94727; 94729

== ENCOUNTER 2025-06-17 08:34 | Outpatient (AMB) | payer OTHER, SELFPAY ==
--- NOTE | 2025-06-17 09:07 | MHC.OFFVIS ---
Vital Signs 06/17/25 09:08 Height 5 ft 10 in Weight 244 lb 11.41 oz BMI 35.1 BP 120/75 Blood Pressure Location Lt brachial Position Sitting Pulse 97 Pulse Source Pulse Oximeter Pulse Oximetry (%) 95 Oxygen Delivery Method Room Air Intake Visit Reasons: Obstructive sleep apnea/Same Day PFT Intake Note: pt is here for follow up of pft, feeling good,did have a cough for a few days. 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 Allergies No Known Allergies Allergy (Verified 06/17/25 09:23) Medication List - Last Reconciled 06/17/25 by Danika Villatoro MD aspirin 81 mg PO DAILY atorvastatin 80 mg PO DAILY baclofen 10 mg PO BID blood pressure monitor As directed cyclobenzaprine 10 mg PO TID PRN diclofenac sodium 75 mg PO BID 10 days gabapentin 300 mg PO TID levothyroxine 175 mcg PO DAILY lisinopril 5 mg PO DAILY zolpidem 5 mg PO BEDTIME PRN Do you need a note to return to daycare/school/sports/work: No HPI HPI Obstructive sleep apnea/Same Day PFT: Details: This 54 years old gentleman is here today for follow-up after his pulmonary function test. He denies any cough wheezing or shortness of breath. Had pulmonary function test this morning which is essentially normal. He had a sleep study last year which showed only borderline obstructive sleep apnea with total sleep time AHI 5. The main issue was that he had nocturnal hypoxemia of up to 8 minutes during sleep. We wanted to rule out any underlying chronic pulmonary disease which he does not have. He claims that he sleeps fine and on wakes up only once to go to the bathroom then goes back to sleep easily. He denies any daytime sleepiness. Currently he is out of work due to left-sided cervical radiculopathy, and is undergoing some testing and physical therapy. So not being very active he is not able to lose weight. [facility] Medical History Vitamin D deficiency Obstructive sleep apnea hypopnea, mild Nocturnal hypoxemia Chronic left shoulder pain Essential hypertension Fall (on)(from) sidewalk curb, initial encounter Impaired fasting glucose Nocturia Primary insomnia Muscle spasticity History of tongue cancer Dyslipidemia Acquired hypothyroidism Rhinitis, allergic Surgical History History of herniorrhaphy Hx of colonoscopy History of surgery History of umbilical hernia Family History Father Unknown family medical history Mother COPD (chronic obstructive pulmonary disease) Son Juvenile onset diabetes mellitus with hyperosmolar coma Social History Housing: House Alcohol intake: current Alcohol intake frequency: a few times a month Patient Tobacco Use Status: Former Tobacco user Years Smoked: 2 yrs e-Cigarette/Vaping Use: Never Used service: No Current occupational status: employed Cognitive needs: No Hearing needs: No Vision needs: Yes Review of Systems Const All systems reviewed & are unremarkable except as noted in HPI and below Eyes Reports no additional complaints ENT Reports no additional complaints Card Denies chest pain, Denies syncope and Denies irregular heart rhythm Resp Reports as per HPI GI Reports no additional complaints Reports nocturia Musc Reports arthralgias (Left shoulder, and left side of the neck) Skin/Breast Reports system reviewed and no additional complaints, except as documented Neuro Reports no additional complaints and Denies syncope Psych Reports no additional complaints Endo Reports no additional complaints Grabiel/Lymph Reports no additional complaints Aller/Immun Reports no additional complaints Physical Exam Vital Signs: Last Vital Signs Pulse 97 06/17/25 09:08 BP 120/75 06/17/25 09:08 Pulse Ox 95 06/17/25 09:08 Oxygen Delivery Method Room Air 06/17/25 09:08 BMI result Body Mass Index 35.1 Const General: healthy appearing (Except for being overweight), comfortable, no acute distress, alert and awake Orientation/consciousness: patient oriented x3 HEENT Head: Yes normal to inspection General nose exam: No nasal polyps present and No nasal discharge present Face and sinus: Yes sinuses nontender Mouth: oropharynx normal Throat: Yes posterior oropharynx normal Eyes General: appearance normal, both eyes and all related structures Neck Neck: Yes normal visual inspection, Yes full ROM, Yes no lymphadenopathy, Yes trachea midline, Yes no JVD and Yes other (There is volume loss and minimal scarring of the skin on the left side. ) Thyroid: Thyroid normal Chest Chest palpation & inspection: normal inspection of the chest, normal palpation of entire chest wall and no tenderness Resp Effort & Inspection: normal respiratory effort Auscultation: clear to auscultation bilaterally, no rales and no wheezes Cardio Palpation: normal PMI Rate: regular rate Rhythm: regular rhythm Heart sounds: no gallops and no murmurs Peripheral pulses: Peripheral pulses 2+ throughout GI Palpation (GI): Soft to palpation, nontender, No hepatosplenomegaly present and no masses Auscultation: normal bowel sounds Back/Spine/Pelvis Thoracic/Lumbar Spine: thoracic and lumbar spine normal to inspection Skin General skin exam: no rashes or lesions noted Neuro General: patient oriented x3 and no focal motor deficits Cranial nerves: Yes CN's II-XII intact bilaterally Extrem General: Yes normal to inspection, Yes no clubbing, cyanosis or edema and Yes no calf tenderness Psych Appearance: grossly normal and well kempt Speech and movement: Normal speech and movement present Results Reviewed Results Reviewed: Pulmonary function test, essentially normal Assessment & Plan Assessment & Plan (1) Obstructive sleep apnea hypopnea, mild: Comment: Total sleep time AHI of 5 is consistent with very mild or borderline JOHNNY. Predominantly it is in supine position. He is trying to sleep in lateral positions and claims that he sleeps very well without any issue. Code(s): G47.33 - Obstructive sleep apnea (adult) (pediatric) Category: Medical Plan: Advise that he should sleep in lateral positions, and avoid sleeping in supine position. He should also try to lose about 5-10 lb of weight. (2) Nocturnal hypoxemia: Comment: Nocturnal hypoxemia noted on the home-based sleep study, was very minimal, for 8 minutes O2 sat below 88%. Patient does not have any associated chronic pulmonary or cardiac disease . I think the low O2 sat recording was mainly secondary to technical reasons such as the probe displacement. Code(s): G47.34 - Idiopathic sleep related nonobstructive alveolar hypoventilation Category: Medical Plan: Patient does not need any further pulmonary workup and does not need to use O2 at night Plan Patient is advised to monitor his weight and sleep pattern, revisit to me if there is any significant change. Otherwise continue to follow-up with regular primary care physician. Coding Level of Care Code Est Pt Level 3 (52774) Diagnoses Obstructive sleep apnea hypopnea, mild G47.33 Nocturnal hypoxemia G47.34
[2025-06-17 09:08] VITALS: BP 120/75; PULSE 97; O2SAT 95; BMI 35.1
== END 2025-06-17 09:20 | disposition home or self-care (01) ==
LOC: HO.HPS 08:35
PROVIDERS: PCP Internal Medicine; Visit Provider Internal Medicine
DX: G47.33 Obstructive sleep apnea (adult) (pediatric) (principal); G47.34 Idiopathic sleep related nonobstructive alveolar hypoventilation
CPT/HCPCS: 99213

== ENCOUNTER 2025-08-22 06:33 | Outpatient (REF) | payer OTHER, SELFPAY ==
[2025-08-22 11:42] LABS: Alanine Aminotransferase 37 U/L (0-40); Anion Gap 10 (12-20); Aspartate Amino Transferase 33 U/L (5-37); Blood Urea Nitrogen 36 mg/dL (9-16); Calcium 9.2 mg/dL (8.4-10.2); Carbon Dioxide 30 mmol/L (22-29); Chloride 106 mmol/L (96-108); Cholesterol 132 mg/dL (<200); Estimated Glomerular Filt Rate 57; HDL Cholesterol 52 mg/dL (>40); Potassium 4.5 mmol/L (3.3-5.1); Sodium 141 mmol/L (135-145); Triglycerides 45 mg/dL (<150)
[2025-08-22 11:49] LABS: Free T4 (Free Thyroxine) 1.40 ng/dL (0.71-1.85); Thyroid Stimulating Hormone 3.44 uIU/mL (0.32-4.0)
== END 2025-08-22 06:34 | disposition home or self-care (01) ==
LOC: HO.HMGCLDS 06:33
PROVIDERS: PCP Internal Medicine; Visit Provider Internal Medicine
DX: I10 Essential (primary) hypertension (principal); R73.01 Impaired fasting glucose; E55.9 Vitamin D deficiency, unspecified; E78.5 Hyperlipidemia, unspecified; E03.9 Hypothyroidism, unspecified
CPT/HCPCS: 36415; 80048; 80061; 82306; 84439; 84443; 84450; 84460

== ENCOUNTER 2025-09-02 15:38 | Outpatient (AMB) | payer OTHER, SELFPAY ==
[2025-09-02 15:59] VITALS: BP 100/60; PULSE 91; RESP 16; TEMP 36.9; O2SAT 96; BMI 35.2
--- NOTE | 2025-09-02 15:59 | MHC.PC.OV ---
Vital Signs 09/02/25 15:59 Height 5 ft 10 in Weight 245 lb BMI 35.2 BP 100/60 Blood Pressure Location Rt brachial Position Sitting Respiration 16 Pulse 91 Pulse Source Pulse Oximeter Temp 98.5 F Temp Source Oral Pulse Oximetry (%) 96 Oxygen Delivery Method Room Air Intake Visit Reasons: PE Intake Note: Pt is here today for his PE: last colonoscopy 12/31/23 Environmental Compliance Inspector Required: No Allergies No Known Allergies Allergy (Verified 09/02/25 16:19) Medication List - Last Reconciled 09/02/25 by Yokasta Rooney MD aspirin 81 mg PO DAILY atorvastatin 80 mg PO DAILY blood pressure monitor As directed gabapentin 300 mg PO TID levothyroxine 175 mcg PO DAILY lisinopril 5 mg PO DAILY zolpidem 5 mg PO BEDTIME PRN Tobacco use date assessed: 09/02/25 Dental Screening Dental Screen Date: 09/02/25 Did you have a dental visit in the last 12 months?: Yes Did you have a dental problem in the last 6 months where you did not have access to dental care?: No Was dental information given to patient?: Patient has dentist HPI PE HPI Details 55-year-old male with history of dyslipidemia, hypertension, hypothyroidism and mild obstructive sleep apnea, here today for his physical exam. He is up-to-date with his screening colonoscopy done in 2023 with 3 polyps removed, done by Dr. Casas, to be repeated again in 2028 The patient has a history of obstructive sleep apnea, which was identified following a home sleep study that showed nocturnal oxygen desaturation. He was advised to sleep on his side to mitigate the condition. The patient also has a history of throat cancer, for which he underwent chemotherapy and surgical intervention. Post-treatment, he experiences muscle tightness in the neck, attributed to radiation therapy, which has been progressively worsening over the past three years. Nerve pain is another significant concern for the patient, described as a shock sensation with no identified nerve issues in the upper body following an EMG test. The patient has been on various medications, including gabapentin, which has not provided relief. The patient reports insomnia, characterized by difficulty maintaining sleep due to pain, resulting in frequent awakenings throughout the night. He has tried zolpidem without significant improvement in sleep quality. [facility] Medical History Vitamin D deficiency Obstructive sleep apnea hypopnea, mild Nocturnal hypoxemia Chronic left shoulder pain Essential hypertension Fall (on)(from) sidewalk curb, initial encounter Impaired fasting glucose Nocturia Primary insomnia Muscle spasticity History of tongue cancer Dyslipidemia Acquired hypothyroidism Rhinitis, allergic Surgical History History of herniorrhaphy Hx of colonoscopy History of surgery History of umbilical hernia Family History Father Unknown family medical history Mother COPD (chronic obstructive pulmonary disease) Son Juvenile onset diabetes mellitus with hyperosmolar coma Social History Housing: House Alcohol intake: current Alcohol intake frequency: a few times a month Patient Tobacco Use Status: Former Tobacco user Years Smoked: 2 yrs e-Cigarette/Vaping Use: Never Used service: No Current occupational status: employed Cognitive needs: No Hearing needs: No Vision needs: Yes Questionnaire PHQ-9 Over the last 2 weeks, how often have you been bothered by any of the following problems? 1. Little interest or pleasure in doing things: not at all 2. Feeling down, depressed, or hopeless: not at all 3. Trouble falling or staying asleep, or sleeping too much: several days 4. Feeling tired or having little energy: several days 5. Poor appetite or overeating: not at all 6. Feeling bad about yourself - or that you are a failure or have let yourself or your family down: not at all 7. Trouble concentrating on things, such as reading the newspaper or watching television: not at all 8. Moving or speaking so slowly that other people could have noticed. Or the opposite - being so fidgety or restless that you have been moving around a lot more than usual: not at all 9. Thoughts that you would be better off or of hurting yourself in some way: not at all Total score: 2 Depression Screening Interpretation: Negative Depression Screening Done: Yes Source: Developed by Drs. Salazar Martinez, Audrey Dorado, Trace Collins and colleagues, with an educational deisi from [employer]. Thrive Questionnaire Date Thrive assessed: 01/29/25 I am a: Patient What is your living situation today?: I have a steady place to live Within the past 12 months, did the food you bought not last and you didn't have the money to get more?: Never true Within the past 12 months, did you worry whether your food would run out before you got money to buy more?: Never true Do you have trouble paying for medicines?: No Do you have trouble getting transportation to medical appointments?: No Do you have trouble paying your heating and electricity bill?: No Do you have trouble taking care of your child, family member or friend?: No Do you have trouble with day-to-day activities such as bathing, preparing meals, shopping, managing finances, etc.?: No Are you currently unemployed and looking for a job?: No Are you interested in more education?: No Please select the resources that you would like help with: None Currently or been in a relationship where the following occur: No concerns reported THRIVE Score: 0 AUDIT C Alcohol Use Questionnaire (AUDIT-C) 1. How often do you have a drink containing alcohol?: Monthly or less Total Score: 1 REID-7 AMB Questionnaire REID-7 Date REID - 7 assessed: 02/05/25 Source: Developed by Drs. Salazar Martinze, Audrey Dorado, Trace Collins and colleagues, with an educational deisi from [employer]. Review of Systems Const All systems reviewed & are unremarkable except as noted in HPI and below Eyes Reports no additional complaints ENT Reports no additional complaints Card Denies chest pain, Denies syncope and Denies irregular heart rhythm Resp Reports as per HPI GI Reports no additional complaints Reports nocturia Musc Reports arthralgias (Left shoulder, and left side of the neck), Reports stiffness and Reports tingling Skin/Breast Reports system reviewed and no additional complaints, except as documented Neuro Reports no additional complaints, Denies syncope and Reports tingling Psych Reports no additional complaints Endo Reports no additional complaints Grabiel/Lymph Reports no additional complaints Aller/Immun Reports no additional complaints Physical exam (Primary Care) Vital Signs: Last Vital Signs Temp 98.5 F 09/02/25 15:59 Pulse 91 09/02/25 15:59 Resp 16 09/02/25 15:59 BP 100/60 09/02/25 15:59 Pulse Ox 96 09/02/25 15:59 Oxygen Delivery Method Room Air 09/02/25 15:59 BMI result Body Mass Index 35.2 Tobacco/Smoking Status: Tobacco use Status Tobacco use date assessed 09/02/25 09/02/25 16:02 Patient Tobacco Use Status Former Tobacco user 09/02/25 16:02 e-Cigarette/Vaping Use Never Used 09/02/25 16:02 PHQ-9: PHQ-9 Score PHQ-9: Total score 2 09/02/25 16:20 Depression Screening Interpretation: Negative Thrive Assessment: Date of Thrive Assessment Date Thrive assessed 01/29/25 09/02/25 16:02 Currently or been in a relationship where the following occur: No concerns reported Const General: no acute distress Nutritional Appearance: obese Orientation/consciousness: patient oriented x3 [facility] General nose exam: Normal external nose present Face and sinus: Yes face symmetric Mouth: moist mucous membranes Eyes General: appearance normal, both eyes and all related structures Neck Other: Supple, no lymphadenopathy, thyroid gland nonpalpable Resp Auscultation: clear to auscultation bilaterally Cardio Other: S1-S2 present regular rate and rhythm GI Palpation (GI): Soft to palpation, nontender, no guarding and no masses Auscultation: normal bowel sounds General: Yes no CVA tenderness Back/Spine/Pelvis Back: no CVA tenderness Skin General skin exam: no rashes or lesions noted Neuro General: patient oriented x3, gait normal, moves all extremities, Normal light touch and pain sensation, CN's II-XI intact bilaterally and normal sensation to monofilament Extrem General: Yes full ROM, Yes no joint enlargement, Yes no pedal edema, Yes no calf tenderness and Yes normal gait Psych Appearance: grossly normal Mental Status: mental status grossly normal Speech and movement: Normal speech and movement present Affect: normal affect Attitude: cooperative Results Reviewed Results Reviewed: Name: Jose J Portillo Age/Sex: 54/M : 1970 Unit#: [id number] Attend Dr: Yokasta Rooney MD Re02/07/25 Status: DEP REF Location: [facility] Disch: SPEC : [id number] ROSA: 02/07/25 STATUS: COMP REQ : [id number] RECD: 02/07/25-[address]: Yoksata Rooney MD COMP: 02/07/25 ENTERED: 02/07/[address] [facility] [address]: ORDERED: CBC Auto Diff Test Result Flag Reference WBC 6.2 4.8-10.8 X10*3/uL RBC 5.04 4.60-5.80 X10*6/uL HGB 15.3 14.0-18.0 g/dl HCT 44.0 42.0-52.0 % MCV 87.3 80.0-98.0 fL MCH 30.4 27.0-33.0 pg MCHC 34.8 31.0-36.0 g/dl RDW 13.0 11.0-16.0 % PLT 258 160-400 X10*3/uL MPV 10.2 9.4-12.4 fL Neut Pct Auto 78.3 H 45-73 % ImGran Pct Auto 0.6 H 0.0-0.4 % Lymp Pct Auto 10.9 L 20-40 % Bacon Pct Auto 8.6 2-11 % Eos Pct Auto 1.0 0-4 % Baso Pct Auto 0.6 0-2 % NRBC Pct Auto 0.0 0.0-0.2 /100WBC ANC Neut Abs # 4.8 2.0-8.3 x10*3/uL ImGran Abs Auto 0.04 H 0.00-0.03 X10*3/uL Lymph Abs Auto 0.7 L 1.2-4.9 X10*3/uL Bacon Abs Auto 0.5 0.1-1.2 X10*3/uL Eos Abs Auto 0.1 0.0-0.4 X10*3/uL Baso Abs Auto 0.0 0.0-0.2 X10*3/uL NRBC Abs Auto 0.000 0.0-0.012 X10*3/uL Name: Jose J Portillo Age/Sex: 55/M : 1970 Unit#: [id number] Attend Dr: Yokasta Rooney MD Re08/22/25 Status: DEP REF Location: [facility] Disch: SPEC : [id number] ROSA: 08/22/25 STATUS: COMP REQ : [id number] RECD: 08/22/[address] [facility] [address]: Yokasta Rooney MD COMP: 08/22/25 ENTERED: 08/22/[address] [facility] [address]: ORDERED: Met Prof Fast, AST, ALT, Lipid Panel, Vitamin D 25-OH, Free T4, TSH Test Result Flag Reference Sodium 141 135-145 mmol/L Potassium 4.5 3.3-5.1 mmol/L CL 106 96-108 mmol/L CO2 30 H 22-29 mmol/L Gap 10 L 12-20 BUN 36 H 9-16 mg/dL Creat 1.30 0.5-1.4 mg/dL eGFR 57 Chronic Kidney Disease: Estimated GFR < 60 mL/min/1.73m2 Severe Kidney Disease: Estimated GFR < 15 mL/min/1.73m2 FBS 97 60-99 mg/dL CA 9.2 8.4-10.2 mg/dL AST (GOT) 33 5-37 U/L ALT (GPT) 37 0-40 U/L Triglyceride 45 <150 mg/dL Desirable Triglyceride: less than 150 mg/dL Borderline High Triglyceride 150-199 mg/dL High Triglyceride: 200-499 mg/dL Very High Triglyceride: greater than or equal to 5OO mg/dL Cholesterol 132 <200 mg/dL Desirable Cholesterol: less than 200 mg/dL Borderline High Cholesterol: 200-239 mg/dL High Cholesterol: greater than 239 mg/dL LDL Calculated 71 <100 mg/dL Desirable LDL: less than 100 mg/dL Near Optimal/Above Optimal LDL: 110-129 mg/dL Borderline High LDL: 130-159 mg/dL High LDL: 160-189 mg/dL Very High LDL: greater than or equal to 190 mg/dL HDL 52 >40 mg/dL Desirable HDL: greater than 40 mg/dL Note: This HDL assay may give artificially low results in patients with liver disease. Vitamin D 25-OH 55.5 >30 ng/mL Health Based Reference Values* < 20 ng/mL Deficient 20-30 ng/mL Insufficient > 30 ng/mL Sufficient *Berta SHERMAN. N Engl J Med. 2007;357:266-280 There is no well-established upper level of normal vitamin D levels. Some laboratories use 50 ng/mL as an upper limit of normal. However, toxicity is patient-dependent and may occur at any level. Careful correlation with the patient's presentation is necessary and, if there is concern for vitamin D toxicity, treatment should be considered irrespective of the serum level. Care must be taken in interpreting Vitamin D results from different laboratories and methodologies. Published data demonstrated that results from patients undergoing hemodialysis may show a negative bias when tested with various automated 25-OH vitamin D assays when compared to LC-MS/MS. When testing samples from patients whose predominant form of Vitamin D is Vitamin D2, such as patients receiving Vitamin D2 supplementation, results that are subtherapeutic should be confirmed with another method such as LC-MS/MS. Free T4 1.40 0.71-1.85 ng/dL TSH 3rd Gen. 3.44 0.32-4.0 uIU/mL Note: A sustained TSH level above 2.5 uIU/mL may warrant further investigation. Coding Level of Care Code Est Pt Prev Care 40-64y(08993) Diagnoses Annual visit for general adult medical examination with abnormal findings Z00.01 Essential hypertension I10 Dyslipidemia E78.5 Impaired fasting glucose R73.01 Acquired hypothyroidism E03.9 Vitamin D deficiency E55.9 Chronic left shoulder pain M25.512; G89.29 Obstructive sleep apnea hypopnea, mild G47.33 Primary insomnia F51.01 Assessment & Plan Assessment & Plan (1) Annual visit for general adult medical examination with abnormal findings: Code(s): Z00.01 - Encounter for general adult medical examination with abnormal findings Plan: Recent fasting lab results reviewed with the patient. Recommended dental visit every 6 months and regular eye exams, at least every 2 years. Take adequate calcium in diet and vitamin-D 3 at 2000 IU per cap once a day, in addition to weight-bearing exercises to help maintain good muscle tone and weight control. Instructed to do self-testicular exam check for any mass. Immunization information provided: Yearly flu vaccine, reminded to get shingles vaccine , up-to-date with the shingles vaccines. Recommended to get COVID booster. Up-to-date with his cancer screening (2) Essential hypertension: Code(s): I10 - Essential (primary) hypertension Category: Medical Plan: Blood pressure at goal of less than 130/80. Continue with lisinopril 5 mg daily. Reinforced importance of following a low sodium diet, getting regular exercise, and lowering stress levels. (3) Dyslipidemia: Code(s): E78.5 - Hyperlipidemia, unspecified Category: Medical Plan: Continued atorvastatin 40 mg daily. Recent fasting lipids are within normal limits (4) Impaired fasting glucose: Code(s): R73.01 - Impaired fasting glucose Category: Medical Plan: Your previous fasting blood sugars were elevated above 100 mg/dL. Impaired glucose metabolism increases the risk for developing diabetes mellitus type 2, as well as heart attack and stroke later on. Lifestyle changes that promotes weight loss, healthy eating habits, and regular exercise are important, and can prevent the progression to diabetes (5) Acquired hypothyroidism: Code(s): E03.9 - Hypothyroidism, unspecified Category: Medical Plan: Thyroid levels are within normal limits, continued on levothyroxine 175 mcg daily in a.m. (6) Vitamin D deficiency: Code(s): E55.9 - Vitamin D deficiency, unspecified Category: Medical Plan: Take vitamin-D 3 at least 2000 units daily (7) Chronic left shoulder pain: Code(s): M25.512 - Pain in left shoulder; G89.29 - Other chronic pain Category: Medical Plan: Tomorrow meloxicam 50 mg once a day and duloxetine 30 mg once a day in a.m. (8) Obstructive sleep apnea hypopnea, mild: Comment: Total sleep time AHI of 5 is consistent with very mild or borderline JOHNNY. Predominantly it is in supine position. He is trying to sleep in lateral positions and claims that he sleeps very well without any issue. Code(s): G47.33 - Obstructive sleep apnea (adult) (pediatric) Category: Medical Plan: Advised weight loss advised to sleep on his side (9) Primary insomnia: Code(s): F51.01 - Primary insomnia Category: Medical Plan: Takes zolpidem 5 mg once a day as needed with difficulty sleeping Medications: New meloxicam 15 mg PO DAILY PRN 30 tabs 0RF pain duloxetine 30 mg PO DAILY 30 caps 1RF atorvastatin (Lipitor) 40 mg PO DAILY 90 tabs 1RF Refilled levothyroxine 175 mcg PO DAILY 90 tabs 4RF lisinopril 5 mg PO DAILY 90 tabs 4RF Discontinued atorvastatin Discontinued Reason: Doctor's Order 80 mg PO DAILY 90 tabs 1RF aspirin Discontinued Reason: Doctor's Order 81 mg PO DAILY 90 tabs 1RF
== END 2025-09-02 16:51 | disposition home or self-care (01) ==
LOC: HO.HMCC 15:39
PROVIDERS: PCP Internal Medicine; Visit Provider Internal Medicine
DX: Z00.01 Encounter for general adult medical examination with abnormal findings (principal); I10 Essential (primary) hypertension; E78.5 Hyperlipidemia, unspecified; R73.01 Impaired fasting glucose; E03.9 Hypothyroidism, unspecified; E55.9 Vitamin D deficiency, unspecified; M25.512 Pain in left shoulder; G89.29 Other chronic pain; G47.33 Obstructive sleep apnea (adult) (pediatric); F51.01 Primary insomnia

== ENCOUNTER 2025-10-07 10:51 | Outpatient (AMB) | payer OTHER, SELFPAY ==
[2025-10-07 11:12] VITALS: BP 100/62; PULSE 82; RESP 16; TEMP 36.7; O2SAT 98; BMI 34.9
--- NOTE | 2025-10-07 11:12 | A.OFFPC_ITS ---
Vital Signs 10/07/25 11:12 Height 5 ft 10 in Weight 243 lb BMI 34.9 BP 100/62 Blood Pressure Location Rt brachial Position Sitting Respiration 16 Pulse 82 Pulse Source Pulse Oximeter Temp 98.1 F Temp Source Oral Pulse Oximetry (%) 98 Oxygen Delivery Method Room Air Intake Visit Reasons: 6wk follow up Intake Note: Pt is here today for his 6wks f/u [employer] Required: No Allergies No Known Allergies Allergy (Verified 10/07/25 11:22) Medication List - Last Reconciled 10/07/25 by Yokasta Rooney MD atorvastatin (Lipitor) 40 mg PO DAILY blood pressure monitor As directed duloxetine 30 mg PO DAILY levothyroxine 175 mcg PO DAILY lisinopril 5 mg PO DAILY meloxicam 15 mg PO DAILY PRN Tobacco use date assessed: 10/07/25 Dental Screening Dental Screen Date: 10/07/25 Did you have a dental visit in the last 12 months?: Yes Did you have a dental problem in the last 6 months where you did not have access to dental care?: No Was dental information given to patient?: Patient has dentist HPI 6wk follow up HPI Details 55-year-old male here today for follow-u p on his generalized anxiety disorder. He was started 6 weeks ago on duloxetine 30 mg taken once a day which she states has been helping. He also is relieved that they found the reason for his chronic left shoulder pain . He is now scheduled for rotator cuff repair in the left shoulder on October 27 to be done by Dr. Uriarte. HPI Comments History of Present Illness Details Scheduled for rotator cuff repair left shoulder 10/27/[address] Dinh Uriarte [facility] Medical History (Updated 10/07/25 @ 11:35 by Yokasta Rooney MD) Generalized anxiety disorder Rotator cuff tear arthropathy of left shoulder Vitamin D deficiency Obstructive sleep apnea hypopnea, mild Nocturnal hypoxemia Chronic left shoulder pain Essential hypertension Fall (on)(from) sidewalk curb, initial encounter Impaired fasting glucose Nocturia Primary insomnia Muscle spasticity History of tongue cancer Dyslipidemia Acquired hypothyroidism Rhinitis, allergic Surgical History History of herniorrhaphy Hx of colonoscopy History of surgery History of umbilical hernia Family History Father Unknown family medical history Mother COPD (chronic obstructive pulmonary disease) Son Juvenile onset diabetes mellitus with hyperosmolar coma Social History Housing: House Alcohol intake: current Alcohol intake frequency: a few times a month Patient Tobacco Use Status: Former Tobacco user Years Smoked: 2 yrs e-Cigarette/Vaping Use: Never Used service: No Current occupational status: employed Cognitive needs: No Hearing needs: No Vision needs: Yes Questionnaire PHQ-9 Over the last 2 weeks, how often have you been bothered by any of the following problems? 1. Little interest or pleasure in doing things: not at all 2. Feeling down, depressed, or hopeless: not at all 3. Trouble falling or staying asleep, or sleeping too much: several days 4. Feeling tired or having little energy: several days 5. Poor appetite or overeating: not at all 6. Feeling bad about yourself - or that you are a failure or have let yourself or your family down: not at all 7. Trouble concentrating on things, such as reading the newspaper or watching television: not at all 8. Moving or speaking so slowly that other people could have noticed. Or the opposite - being so fidgety or restless that you have been moving around a lot more than usual: not at all 9. Thoughts that you would be better off or of hurting yourself in some way: not at all Total score: 2 Depression Screening Interpretation: Negative Depression Screening Done: Yes Source: Developed by Drs. Salazar Martinez, Audrey Dorado, Trace Collins and colleagues, with an educational deisi from [employer]. Thrive Questionnaire Date Thrive assessed: 01/29/25 I am a: Patient What is your living situation today?: I have a steady place to live Within the past 12 months, did the food you bought not last and you didn't have the money to get more?: Never true Within the past 12 months, did you worry whether your food would run out before you got money to buy more?: Never true Do you have trouble paying for medicines?: No Do you have trouble getting transportation to medical appointments?: No Do you have trouble paying your heating and electricity bill?: No Do you have trouble taking care of your child, family member or friend?: No Do you have trouble with day-to-day activities such as bathing, preparing meals, shopping, managing finances, etc.?: No Are you currently unemployed and looking for a job?: No Are you interested in more education?: No Please select the resources that you would like help with: None Currently or been in a relationship where the following occur: No concerns reported THRIVE Score: 0 AUDIT C Alcohol Use Questionnaire (AUDIT-C) 1. How often do you have a drink containing alcohol?: Monthly or less Total Score: 1 REID-7 AMB Questionnaire REID-7 Date REID - 7 assessed: 10/07/25 Feeling nervous, anxious, or on edge: 0 = Not at all Not being able to stop or control worryin = Not at all Worrying too much about different things: 0 = Not at all Trouble relaxin = Not at all Being so restless that it is hard to sit still: 0 = Not at all Becoming easily annoyed or irritable: 0 = Not at all Feeling afraid as if something awful might happen: 0 = Not at all Total REID-7 score (0-4 normal; 5-9 mild; 10-14 moderate; 15-21 severe): 0 Source: Developed by Drs. Salazar Martinez, Audrey Dorado, Trace Collins and colleagues, with an educational deisi from [employer]. REID-7 Assessment Billing REID-7 Assessment Tool: REID-7 Assessment 55791 Review of Systems Const All systems reviewed & are unremarkable except as noted in HPI and below Physical exam (Primary Care) Vital Signs: Last Vital Signs Temp 98.1 F 10/07/25 11:12 Pulse 82 10/07/25 11:12 Resp 16 10/07/25 11:12 BP 100/62 10/07/25 11:12 Pulse Ox 98 10/07/25 11:12 Oxygen Delivery Method Room Air 10/07/25 11:12 BMI result Body Mass Index 34.9 Tobacco/Smoking Status: Tobacco use Status Tobacco use date assessed 10/07/25 10/07/25 11:19 Patient Tobacco Use Status Former Tobacco user 10/07/25 11:19 e-Cigarette/Vaping Use Never Used 10/07/25 11:19 PHQ-9: PHQ-9 Score PHQ-9: Total score 2 10/07/25 11:28 Depression Screening Interpretation: Negative Thrive Assessment: Date of Thrive Assessment Date Thrive assessed 01/29/25 10/07/25 11:19 Currently or been in a relationship where the following occur: No concerns repo rted Const General: no acute distress Nutritional Appearance: obese Orientation/consciousness: patient oriented x3 Neck Other: Supple, no lymphadenopathy, thyroid gland nonpalpable Resp Auscultation: clear to auscultation bilaterally Cardio Other: S1-S2 present regular rate and rhythm GI Palpation (GI): Soft to palpation, nontender, no guarding and no masses Auscultation: normal bowel sounds Skin General skin exam: no rashes or lesions noted Neuro General: patient oriented x3, gait normal, moves all extremities, Normal light touch and pain sensation, CN's II-XI intact bilaterally and normal sensation to monofilament Extrem Other: Decreased range of motion of left shoulder joint especially on abduction more than 90 degrees and hyperextension. General: Yes no joint enlargement, Yes no pedal edema, Yes no calf tenderness and Yes normal gait Psych Appearance: grossly normal Mental Status: mental status grossly normal Speech and movement: Normal speech and movement present Affect: normal affect Attitude: cooperative Coding Level of Care Code Est Pt Level 4 (06024) Diagnoses Rotator cuff tear arthropathy of left shoulder M75.102; M12.812 Generalized anxiety disorder F41.1 Additional Codes REID-7 Assessment Billing - REID-7 Assessment Tool: REID-7 Assessment 40609 ([id number]) Assessment & Plan Assessment & Plan (1) Rotator cuff tear arthropathy of left shoulder: Code(s): M75.102 - Unspecified rotator cuff tear or rupture of left shoulder, not specified as traumatic; M12.812 - Other specific arthropathies, not elsewhere classified, left shoulder Category: Medical Plan: Patient is now scheduled for repair of rotator cuff tear scheduled for 10/27/2025, to be done by (2) Generalized anxiety disorder: Code(s): F41.1 - Generalized anxiety disorder Category: Medical Plan: Feeling better on current dose of duloxetine 30 mg daily, will continue on current dose
== END 2025-10-07 12:08 | disposition home or self-care (01) ==
LOC: HO.HMCC 10:52
PROVIDERS: PCP Internal Medicine; Visit Provider Internal Medicine
DX: M75.102 Unspecified rotator cuff tear or rupture of left shoulder, not specified as traumatic (principal); M12.812 Other specific arthropathies, not elsewhere classified, left shoulder; F41.1 Generalized anxiety disorder

== ENCOUNTER → 2025-10-07 10:51 | Outpatient (BNVA) | payer OTHER, SELFPAY | PROVIDERS: PCP Internal Medicine; Visit Provider Internal Medicine | DX: F41.1 Generalized anxiety disorder (principal); M12.812 Other specific arthropathies, not elsewhere classified, left shoulder; M75.102 Unspecified rotator cuff tear or rupture of left shoulder, not specified as traumatic | CPT/HCPCS: 96127 ==